=== PATIENT | male | born 1955 | race Caucasian/White ===

== ENCOUNTER 2016-06-24 17:13 | Inpatient (IN) | payer MEDICAID ==
[~2016-06-24 17:13] MED LIST: CALC0.253 PO; FAMO20TA8 PO; FURO40TA5 PO; LABE100T PO; METO5SOL2 PO; NIFE60TA69 PO; PANT40TA2 PO; PRAV40TA PO; SEVE800T8 PO
[2016-06-24] MEDS ORDERED: ACETAMINOPHEN 325 MG TABLET PO PRN (23:30)
[2016-06-24] MEDS ORDERED: ONDANSETRON HCL/PF 4 MG/2 ML VIAL IV PRN (23:30)
[2016-06-25] MEDS ORDERED: DEXTROSE 50%-WATER 50 ML DISP.SYRIN IV PRN (04:00)
[2016-06-25] MEDS: PANTOPRAZOLE 40 MG TABLET.DR PO SCH (07:30)
[2016-06-25] MEDS: BLOOD SUGAR DIAGNOSTIC 1 EACH STRIP IN SCH ×4 (07:30→22:02)
[2016-06-25] MEDS ORDERED: INSU100V7 SQ (08:29)
[2016-06-25] MEDS: NIFEdipine XL 60 MG TAB PO SCH (09:00)
[2016-06-25] MEDS: LABETALOL HCL (100MG) 100 MG TABLET PO SCH ×2 (09:00→17:00)
[2016-06-25] MEDS: FUROSEMIDE 40 MG TABLET PO SCH (09:00)
[2016-06-25] MEDS ORDERED: MORPHINE SULFATE INJ 2 MG/ML DISP.SYRIN IV PRN (10:00)
[2016-06-25] MEDS ORDERED: HYDROCODONE/APAP 5/325MG 1 EACH TABLET PO PRN (10:00)
[2016-06-25] MEDS ORDERED: ONDANSETRON HCL/PF 4 MG/2 ML VIAL IV PRN (10:00)
[2016-06-25] MEDS: SEVELAMER CARBONATE 0.8 GM POWD.PACK PO SCH ×2 (13:00→18:00)
[2016-06-25] MEDS ORDERED: HEPARIN SODIUM, PORCINE 1,000 UNIT/ML VIAL ONE (15:49)
[2016-06-25] MEDS ORDERED: THROMBIN (BOVINE) 5,000 UNITS VIAL TP ONE (15:50)
[2016-06-25] MEDS ORDERED: GELATIN SPONGE,ABSORBABLE 1 SPONGE SPONGE TP ONE (15:50)
[2016-06-25] MEDS ORDERED: LIDOCAINE HCL/PF 1% 30 ML SDV ONE (15:50)
[2016-06-25] MEDS ORDERED: FENTANYL PF 100MCG/2ML AMPUL ONE (15:59)
[2016-06-25] MEDS ORDERED: GELATIN SPONGE,ABSORBABLE 1 EA SPONGE TP ONE (16:34)
[2016-06-25] MEDS: ATORVASTATIN 10 MG TABLET PO SCH (22:02)
[2016-06-25] MEDS ORDERED: INSULIN REGULAR, HUMAN 100 UNIT/ML 10 ML VIAL ONE (22:21)
[2016-06-25] MEDS: INSULIN REGULAR, HUMAN 100 UNIT/ML 3 ML VIAL SQ PRN (22:33)
[2016-06-26] MEDS ORDERED: LOPERAMIDE HCL (2 MG CAP) 2 MG CAPSULE PO PRN
[2016-06-26] MEDS: FUROSEMIDE 40 MG TABLET PO SCH (08:18)
[2016-06-26] MEDS: PANTOPRAZOLE 40 MG TABLET.DR PO SCH (08:18)
[2016-06-26] MEDS: NIFEdipine XL 60 MG TAB PO SCH (08:19)
[2016-06-26] MEDS: BLOOD SUGAR DIAGNOSTIC 1 EACH STRIP IN SCH ×4 (08:19→22:24)
[2016-06-26] MEDS: SEVELAMER CARBONATE 0.8 GM POWD.PACK PO SCH ×3 (08:19→17:15)
[2016-06-26] MEDS: LABETALOL HCL (100MG) 100 MG TABLET PO SCH ×2 (08:19→17:00)
[2016-06-26] MEDS: INSULIN REGULAR, HUMAN 100 UNIT/ML 3 ML VIAL SQ PRN (12:39)
[2016-06-26] MEDS ORDERED: ASPIRIN 81 MG TAB.CHEW PO ONE (22:00)
[2016-06-26] MEDS ORDERED: HEPARIN SODIUM, PORCINE 5000 UNITS/1 ML VIAL SQ SCH (22:00)
[2016-06-26] MEDS: ATORVASTATIN 10 MG TABLET PO SCH (22:16)
[2016-06-27] MEDS: BLOOD SUGAR DIAGNOSTIC 1 EACH STRIP IN SCH ×2 (06:49→11:44)
[2016-06-27] MEDS: PANTOPRAZOLE 40 MG TABLET.DR PO SCH (08:56)
[2016-06-27] MEDS: SEVELAMER CARBONATE 0.8 GM POWD.PACK PO SCH ×2 (08:56→12:52)
[2016-06-27] MEDS: FUROSEMIDE 40 MG TABLET PO SCH (08:56)
[2016-06-27] MEDS: NIFEdipine XL 60 MG TAB PO SCH (08:57)
[2016-06-27] MEDS: LABETALOL HCL (100MG) 100 MG TABLET PO SCH (08:57)
[2016-06-27] MEDS ORDERED: ASPIRIN 81 MG TAB.CHEW PO SCH (09:24)
[2016-06-27] MEDS: INSULIN REGULAR, HUMAN 100 UNIT/ML 3 ML VIAL SQ PRN (11:44)
== END 2016-06-27 15:55 | disposition home or self-care (01) | DRG 444 ==
DX: T82.590A Other mechanical complication of surgically created arteriovenous fistula, initial encounter (principal); I12.0 Hypertensive chronic kidney disease with stage 5 chronic kidney disease or end stage renal disease; E11.22 Type 2 diabetes mellitus with diabetic chronic kidney disease; E83.9 Disorder of mineral metabolism, unspecified; N18.6 End stage renal disease; Z99.2 Dependence on renal dialysis; K21.9 Gastro-esophageal reflux disease without esophagitis; I48.91 Unspecified atrial fibrillation; E78.5 Hyperlipidemia, unspecified; D64.9 Anemia, unspecified; E87.5 Hyperkalemia; N40.0 Benign prostatic hyperplasia without lower urinary tract symptoms; Y84.9 Medical procedure, unspecified as the cause of abnormal reaction of the patient, or of later complication, without mention of misadventure at the time of the procedure; Y92.009 Unspecified place in unspecified non-institutional (private) residence as the place of occurrence of the external cause

== ENCOUNTER → 2016-08-12 | Emergency (ER) | payer MEDICAID ==
[~2016-08-12] VITALS: Ht 160 cm; Wt 54.4 kg
[~2016-08-12] MED LIST changes: +INSU100V7 SQ; -METO5SOL2 PO; -PANT40TA2 PO
[2016-08-12 12:40] VITALS: BP 104/69
--- NOTE | 2016-08-12 12:42 | NUR ---
received a call from naima at 's office [phone] She notified me that patient was sent for a surgery intervention by Dr. Somers however, Dr. Somers will not be able to see patient for surgery today or tomorrow due to an unexpected emergency case. They will reschedule surgery for another time. notified blunger and ER MD
--- NOTE | 2016-08-12 12:46 | NUR ---
Patient eloped from facility. ER MD notified.
== END | disposition left against medical advice (07) ==
LOC: ER 12:32
DX: Z53.21 Procedure and treatment not carried out due to patient leaving prior to being seen by health care provider (principal)
CPT/HCPCS: A4606; Z7610

== ENCOUNTER 2016-08-26 13:04 | Inpatient (IN) | payer MEDICAID ==
[~2016-08-26] VITALS: Ht 170.2 cm; Wt 61.2 kg
--- NOTE | 2016-08-26 13:04 | NUR ---
SENT BY DR LEBLANC FOR THOM CATH CHANGE FOR DR PARMAR. DR PARMAR IS AWARE. NAD NOTED. PT AAO X4, AMB WITH STEADY GAIT. HEBREW SPEAKER, VSS. PENDING MD FOR MATT.
[2016-08-26 13:34] LABS: BASOPHILS # (AUTO) 0.1 /CMM (0.0-0.2); BASOPHILS % (AUTO) 1.2 % (0.0-2.0); EOSINOPHILS # (AUTO) 0.3 /CMM (0.0-0.7); EOSINOPHILS % (AUTO) 6.2 % (0.0-6.0); HEMATOCRIT 42 % (39-51); HEMOGLOBIN 13.3 g/dL (13.5-17.5); LYMPHOCYTES # (AUTO) 1.5 /CMM (0.8-4.8); LYMPHOCYTES % (AUTO) 29.5 % (20.0-44.0); MEAN CORPUSCULAR HEMOGLOBIN 30 PG (26.0-33.0); MEAN CORPUSCULAR HGB CONC 32 g/dl (31.0-36.0); MEAN CORPUSCULAR VOLUME 95 fL (80-96); MONOCYTES # (AUTO) 0.6 /CMM (0.1-1.30); MONOCYTES % (AUTO) 12.1 % (2.0-12.0); NEUTROPHILS # (AUTO) 2.5 /CMM (1.8-8.9); PLATELET COUNT (AUTO) 153 /CMM (150-450); RED BLOOD CELL COUNT(AUTO) 4.39 MIL/uL (4.5-6.0)
[2016-08-26 13:44] LABS: CALCIUM, SERUM 8.8 mg/dL (8.5-10.1); CREATININE 5.7 mg/dL (0.6-1.3); POTASSIUM 4.2 mmol/L (3.5-5.1)
[2016-08-26 13:50] LABS: ALBUMIN 3.6 g/dL (3.4-5.0); BILIRUBIN,DIRECT 0.1 mg/dL (0.0-0.2); BILIRUBIN,TOTAL 0.4 mg/dL (0.2-1.0); TOTAL PROTEIN, SERUM 8.5 g/dL (6.4-8.2)
--- NOTE | 2016-08-26 13:55 | NUR ---
URINE OBTAINED SENT TO LAB
[2016-08-26] MEDS ORDERED: INSULIN REGULAR, HUMAN 100 UNIT/ML 10 ML VIAL SQ ONE (14:30)
[2016-08-26] MEDS ORDERED: INSULIN REGULAR, HUMAN 100 UNIT/ML 10 ML VIAL ONE (14:50)
--- NOTE | 2016-08-26 15:04 | NUR ---
REPORT GIVEN TO KEENAN RAMOS FOR CONTINUITY OF CARE.
--- NOTE | 2016-08-26 15:43 | NUR ---
RN Notes Received per hospital bed a 61 year old male under the service of Dr Anthony with Dx of Malfunction dialysis Catheter. Placed comfortably on bed. Patient is awake, alert and oriented. Not in any form of distress. Denies headache and dizziness. On RA saturating at 97% with no SOB. With IV access on left forearm gg 20 patent and intact. Noted to have Reece cath on left upper chest wall with dressing dry and intact. Routine admission care done. Oriented to the room and use of call light. VSS. Call light placed within reach. Dr anthony aware with admitting orders carried out. Kept comfortable.
[2016-08-26 16:00] VITALS: BP 103/60
[2016-08-26] MEDS ORDERED: DEXTROSE 50%-WATER 50 ML DISP.SYRIN IV PRN (16:00)
[2016-08-26] MEDS: BLOOD SUGAR DIAGNOSTIC 1 EACH STRIP IN SCH ×2 (17:58→21:28)
--- NOTE | 2016-08-26 18:02 | NUR ---
RN Notes BS 56 mg/dl. Patient is awake,alert and oriented,. Not in any form of distress. No changes in mentation noted. No clammy skin. Meal tray at the bedside. Apple juice with sweet concentrate given to patient. Encourage to eat dinner well. will cont to monitor. Will notify
--- NOTE | 2016-08-26 18:03 | NUR ---
RN Notes Spoke with Dr Somers with order to do CBC, BMP, PT/PTT in am, secure consent for right arm AV access and place on NPO post midnight tonight noted and carried out.
--- NOTE | 2016-08-26 18:09 | NUR ---
RN Notes Verified patient's understanding on the risk and benefit of right arm arteriovenous access placement as explained by Dr Somers, as interpreted by computer tape librarian verbalized understanding. Consent for the procedure done.
--- NOTE | 2016-08-26 18:42 | NUR ---
RN Notes Blood sugar rechecked: 189 mg/dl
--- NOTE | 2016-08-26 19:30 | NUR ---
RN NOTE; RECEIVED PT SITING IN BED AWAKE AND ALERT. BREATHING EVENLY. NO SOB. NO DISTRESS. NO C/O PAIN OR DISCOMFORT. SKIN WARM AND DRY. RICHARD CATH ON L CHEST INTACT. NO BLEEDING. PT MADE AWARE OF PROCEDURE IN AM AND NPO STATUS POST MIDNIGHT. NEEDS ATTENDED. CALL LIGHT WITHIN REACH. WILL CONT TO MONITOR .
[2016-08-26 20:00] VITALS: BP_SYST 103; BP_DIAS 62; BP_DIAS 67
--- NOTE | 2016-08-27 06:11 | NUR ---
RN NOTE; PT IN BED SLEEPING, AROUSES EASILY. BREATHING EVENLY. NO SOB. NO DISTRESS. SKIN WARM AND DRY. IV SITE AND RICHARD CATH INTACT. NO ACUTE CHANGES DURING THE NIGHT. REMAINED NPO FOR PROCEDURE TODAY. NO S/S OD HYPO OR HYPERGLYCEMIA. NEEDS ATTENDED. CALL LIGHT WITHIN REACH. WILL CONT TO MONITOR AND WILL ENDORSE TO AM SHIFT FOR KEVIN.
[2016-08-27 06:45] LABS: BASOPHILS # (AUTO) 0.1 /CMM (0.0-0.2); BASOPHILS % (AUTO) 1.6 % (0.0-2.0); EOSINOPHILS # (AUTO) 0.4 /CMM (0.0-0.7); EOSINOPHILS % (AUTO) 6.2 % (0.0-6.0); HEMATOCRIT 36 % (39-51); HEMOGLOBIN 11.7 g/dL (13.5-17.5); LYMPHOCYTES # (AUTO) 2.7 /CMM (0.8-4.8); LYMPHOCYTES % (AUTO) 44.6 % (20.0-44.0); MEAN CORPUSCULAR HEMOGLOBIN 31 PG (26.0-33.0); MEAN CORPUSCULAR HGB CONC 33 g/dl (31.0-36.0); MEAN CORPUSCULAR VOLUME 94 fL (80-96); MONOCYTES # (AUTO) 0.8 /CMM (0.1-1.30); MONOCYTES % (AUTO) 12.7 % (2.0-12.0); NEUTROPHILS # (AUTO) 2.1 /CMM (1.8-8.9); NEUTROPHILS % (AUTO) 34.9 % (43.0-81.0); PLATELET COUNT (AUTO) 166 /CMM (150-450); RDW COEFFICIENT OF VARIATION 15.1 (11.5-15.0); RED BLOOD CELL COUNT(AUTO) 3.83 MIL/uL (4.5-6.0); WHITE BLOOD COUNT (AUTO) 6.1 K/uL (4.3-11.0)
[2016-08-27 06:46] LABS: INR 0.97 (0.87-1.13); PROTHROMBIN TIME 10.4 SECS (9.5-12.7)
[2016-08-27 07:05] LABS: CALCIUM, SERUM 8.3 mg/dL (8.5-10.1); POTASSIUM 5.3 mmol/L (3.5-5.1)
[2016-08-27 07:12] LABS: CREATININE 7.5 mg/dL (0.6-1.3)
[2016-08-27] MEDS: BLOOD SUGAR DIAGNOSTIC 1 EACH STRIP IN SCH ×4 (07:18→21:08)
--- NOTE | 2016-08-27 07:23 | NUR ---
PAGED DR. MCGEE FOR POSSIBLE ORDER FOR IVF HYDRATION OF DEXTROSE. PT W/ BS:89 AND NPO. SCHEDULED FOR SX FOR 1500 TODAY. ENDORSED TO DAY SHIFT RN FOR F/U.
[2016-08-27] MEDS ORDERED: IV D5/ 0.9% NACL 1,000 ML IV PRN (07:30)
--- NOTE | 2016-08-27 07:30 | NUR ---
MS/RN OPENING NOTE PT. IS SLEEPING IN BED, NO S/S OF DISTRESS. NO SOB, UNLABORED BREATHING ON RA. PT. IS ON NPO BEFORE SURGERY. BED IS IN LOW POSITION, 2 SIDE RAILS UP, ALL NEEDS ATTENDED TO. PT. HAS A LEFT CHEST RICHARD CATHETER. IV FLUIDS D5NS ORDERED TO MANAGE BLOOD SUGAR LEVELS.
[2016-08-27] MEDS ORDERED: IV SET PRIMARY PUMP SET 1 EA INFUS.SET MC ONE (07:53)
[2016-08-27 08:00] VITALS: BP 108/63
[2016-08-27] MEDS ORDERED: ONDANSETRON HCL/PF 4 MG/2 ML VIAL IV PRN (09:30)
[2016-08-27] MEDS ORDERED: HYDROCODONE/APAP 5/325MG 1 EACH TABLET PO PRN (09:30)
[2016-08-27] MEDS ORDERED: FENTANYL PF 100MCG/2ML AMPUL ONE (13:29)
[2016-08-27] MEDS ORDERED: METOCLOPRAMIDE HCL 10 MG/2 ML VIAL ONE (13:29)
[2016-08-27] MEDS ORDERED: MIDAZOLAM HCL 2 MG/2ML VIAL ONE (13:29)
[2016-08-27] MEDS ORDERED: ATRACURIUM 100MG/10 ML MDV IV ONE (13:30)
[2016-08-27] MEDS ORDERED: GELATIN SPONGE,ABSORBABLE 1 EA SPONGE TP ONE (13:40)
[2016-08-27] MEDS ORDERED: IOHEXOL 0 ML IV ONE (13:40)
[2016-08-27] MEDS ORDERED: THROMBIN (BOVINE) 5,000 UNITS VIAL TP ONE ×2 (13:40→13:41)
[2016-08-27] MEDS ORDERED: HEPARIN SODIUM, PORCINE 1,000 UNIT/ML VIAL ONE (13:40)
[2016-08-27 16:00] VITALS: BP 100/60
[2016-08-27] MEDS: FUROSEMIDE 40 MG TABLET PO SCH (17:00)
[2016-08-27] MEDS ORDERED: ALTEPLASE CATHFLO 2 MG/VIAL IV ONE (17:30)
--- NOTE | 2016-08-27 17:47 | NUR ---
MS/RN HELD LASIX HELD LASIX MEDICATION DUE TO LOW BP 100/60 PER MD ORDER
[2016-08-27] MEDS: SEVELAMER CARBONATE 0.8 GM POWD.PACK PO SCH (17:52)
--- NOTE | 2016-08-27 19:34 | NUR ---
MS/RN CLOSING NOTE PT. IS IN BED A&OX4, NOT IN DISTRESS. NO SOB, BREATHING IS UNLABORED ON ROOM AIR, AND IN STABLE CONDITION. COMPLETED HEMODIALYSIS. BED IN LOW POSITION, 2 SIDE RAILS UP, AND CALL LIGHT WITHIN REACH. PT. IS ON A RENAL, AND DIABETIC DIET.
--- NOTE | 2016-08-27 19:47 | NUR ---
RECEIVED NEW ORDER FROM DR. PARMAR TO PLACE PT ON NPO EXCEPT MEDS TILL HD, FOR CATHETER PLACEMENT ON 08/28/16, PATIENT MADE AWARE AND VERBALIZED UNDERSTANDING
[2016-08-27 20:00] VITALS: BP 96/62
--- NOTE | 2016-08-27 20:07 | NUR ---
PATIENT IN BED, ALERT AND ORIENTED X4, SW[place] SPEAKING, CALM, NO SOB, NO RESPIRATORY DISTRESS, S/P HD AT 1900. NO COMPLAIN OF PAIN AT THIS TIME, EATING DINNER, NO DIFFICULTY SWALLOWING. NOTIFIED PATIENT OF PROCEDURE IN AM TO REPLACE HD CATHETER. NEEDS ATTENDED, KEPT SAFE AND COMFORTABLE, CALL LIGHT WITHIN REACH
[2016-08-27] MEDS ORDERED: IV D5/ 0.9% NACL 1,000 ML IV ONE (20:30)
[2016-08-27 21:08] VITALS: BP 89/61
[2016-08-27] MEDS: ATORVASTATIN 10 MG TABLET PO SCH (21:08)
--- NOTE | 2016-08-27 21:18 | NUR ---
BP LOW 89/61 HR 94, PUT PATIENT ON [place] POSITION, BP TAKEN AFTER 30 MINUTES, NEW BP 96/62 HR 80
[2016-08-27] MEDS: INSULIN REGULAR, HUMAN 100 UNIT/ML 3 ML VIAL SQ PRN (21:32)
--- NOTE | 2016-08-27 21:32 | NUR ---
INSULIN HELD, BG 157 MG/DL, PATIENT WILL BE NPO AFTER MIDNIGHT FOR HD PLACEMENT IN AM
--- NOTE | 2016-08-27 21:37 | NUR ---
NPO EXCEPT MEDS IS CHANGED TO NPO ONLY
[2016-08-28] MEDS: BLOOD SUGAR DIAGNOSTIC 1 EACH STRIP IN SCH ×4 (06:18→21:19)
[2016-08-28] MEDS: INSULIN REGULAR, HUMAN 100 UNIT/ML 3 ML VIAL SQ PRN ×3 (06:26→21:20)
--- NOTE | 2016-08-28 06:27 | NUR ---
BG 107, INSULIN HELD, PATIENT IS NPO
[2016-08-28 06:31] LABS: BASOPHILS # (AUTO) 0.1 /CMM (0.0-0.2); BASOPHILS % (AUTO) 1.6 % (0.0-2.0); EOSINOPHILS # (AUTO) 0.4 /CMM (0.0-0.7); EOSINOPHILS % (AUTO) 6.1 % (0.0-6.0); HEMATOCRIT 38 % (39-51); HEMOGLOBIN 12.3 g/dL (13.5-17.5); LYMPHOCYTES # (AUTO) 2.3 /CMM (0.8-4.8); LYMPHOCYTES % (AUTO) 37.8 % (20.0-44.0); MEAN CORPUSCULAR HEMOGLOBIN 31 PG (26.0-33.0); MEAN CORPUSCULAR HGB CONC 33 g/dl (31.0-36.0); MEAN CORPUSCULAR VOLUME 94 fL (80-96); MONOCYTES # (AUTO) 0.9 /CMM (0.1-1.30); MONOCYTES % (AUTO) 14.6 % (2.0-12.0); NEUTROPHILS # (AUTO) 2.4 /CMM (1.8-8.9); NEUTROPHILS % (AUTO) 39.9 % (43.0-81.0); PLATELET COUNT (AUTO) 146 /CMM (150-450); RDW COEFFICIENT OF VARIATION 14.8 (11.5-15.0); RED BLOOD CELL COUNT(AUTO) 3.97 MIL/uL (4.5-6.0)
--- NOTE | 2016-08-28 06:39 | NUR ---
PATIENT IN BED, ALERT AND AWAKE, NO SOB, NO DISTRESS, NO PAIN AT THIS TIME. NPO SINCE MIDNIGHT, SLEPT FOR 9 HOURS, FOR HD CATHETER PLACEMENT TODAY, ALL DUE MEDICATIONS GIVEN, CALL LIGHT WITHIN REACH.
[2016-08-28 06:50] LABS: CALCIUM, SERUM 8.2 mg/dL (8.5-10.1); CREATININE 6.9 mg/dL (0.6-1.3); MAGNESIUM 2.6 mg/dL (1.8-2.4); PHOSPHORUS 5.4 mg/dL (2.5-4.9); POTASSIUM 4.7 mmol/L (3.5-5.1)
--- NOTE | 2016-08-28 06:53 | NUR ---
PATIENT STARTED ON HD AT THIS TIME
--- NOTE | 2016-08-28 07:30 | NUR ---
MS/RN Patient received Patient received from night court magistrate. NPO at this time for surgery later today by Dr Somers. Blank consent forms placed in front of chart, unable to complete as no order given for exact surgery as of yet. All needs attended, call light within reach, will continue to monitor.
[2016-08-28 08:00] VITALS: BP 116/71
--- NOTE | 2016-08-28 08:27 | NUR ---
MS/RN Dr Somers Call received from Dr Somers - as quinnntin catheter has been working for two HDX sessions, new line insertion to be cancelled. Patient can resume all previous orders including diet. Order entered into computer, kitchen called for tray.
[2016-08-28] MEDS: SEVELAMER CARBONATE 0.8 GM POWD.PACK PO SCH ×3 (09:39→17:12)
[2016-08-28] MEDS: FAMOTIDINE (20 MG) 20 MG TABLET PO SCH (09:40)
[2016-08-28] MEDS: FUROSEMIDE 40 MG TABLET PO SCH ×2 (09:40→16:12)
[2016-08-28] MEDS: CALCITRIOL 0.25 MCG CAPSULE PO SCH (09:40)
--- NOTE | 2016-08-28 09:43 | NUR ---
RN notes patient ambulated to restroom with steady gait; dangling at bedside at the moment; no acute distress; will continue to monitor.
--- NOTE | 2016-08-28 13:56 | NUR ---
RN NOTES LFA IV infiltrated; IV discontinued, cannula intact, pressure drsg applied; 20g IV inserted in R wrist; patient tolerated procedure; patient able to produce soft brown stool; specimen collected & sent to lab.
[2016-08-28 16:00] VITALS: BP 126/67
--- NOTE | 2016-08-28 16:17 | NUR ---
RN NOTES patient laying in bed watching tv; denies any distress or discomfort at this time; will continue to monitor.
--- NOTE | 2016-08-28 18:00 | NUR ---
RN NOTES R wrist HL patent; no signs of infiltration or swelling; patient denies any pain at this time; will inform PM nurse.
[2016-08-28 20:00] VITALS: BP 108/68
--- NOTE | 2016-08-28 20:00 | NUR ---
RN NOTES RECEIVED PX AWAKE, ALERT, ORIENTED, [place] SPEAKING BUT IS ABLE TO COMMUNICATE ALSO IN [place]IZ[place]; ON ROOM AIR, PIV FLUSHED, PATENT AND INTACT; LEFT CW HD ACCESS, WITH DRESSING CLEAN,DRY,INTACT; PX ABLE TO MOVE BY SELF IN BED; DVT PUMPS ON; PX DENIED PAIN, SOB, N/V.
[2016-08-28 20:03] VITALS: BP 108/68
[2016-08-28] MEDS: ATORVASTATIN 10 MG TABLET PO SCH (21:19)
--- NOTE | 2016-08-29 06:35 | NUR ---
RN NOTES EARLY AM CARE RENDERED; PROCEDURE TOLERATED; PX DENIED PAIN, SOB, N/V, NOT IN DISTRESS; BLOOD SUGAR 82, GAVE A CRANBERRY JUICE; NEEDS ATTENDED; CALL LIGHT WITHIN REACH; WILL ENDORSE TO NEXT RN.
[2016-08-29] MEDS: BLOOD SUGAR DIAGNOSTIC 1 EACH STRIP IN SCH ×4 (06:39→21:21)
[2016-08-29 08:00] VITALS: BP 119/74
--- NOTE | 2016-08-29 08:00 | NUR ---
AM RN NOTES RECEIVED PT IN STABLE CONDITION, NOTED WITH DIARRHEA AND MULTIPLE LOOSE BM'S, NO SOB OR DISTRESS NOTED, NO N/V, WILL MONITOR.
[2016-08-29] MEDS: CALCITRIOL 0.25 MCG CAPSULE PO SCH (08:05)
[2016-08-29] MEDS: SEVELAMER CARBONATE 0.8 GM POWD.PACK PO SCH ×3 (08:05→17:52)
[2016-08-29] MEDS: FUROSEMIDE 40 MG TABLET PO SCH ×2 (08:06→16:16)
[2016-08-29] MEDS: FAMOTIDINE (20 MG) 20 MG TABLET PO SCH (08:06)
--- NOTE | 2016-08-29 09:30 | NUR ---
PT STARTED ON CONTACT ISOLATION DUE TO C DIFF
[2016-08-29] MEDS ORDERED: METRONIDAZOLE 500MG/ NS 100ML 500 MG in PREMIX 1 EA IV SCH (10:30)
[2016-08-29] MEDS ORDERED: SECONDARY IV SET 1 EA INFUS.SET MC ONE (11:01)
[2016-08-29] MEDS ORDERED: IV NS 0.9% 250 ML IV ONE (11:01)
[2016-08-29] MEDS ORDERED: IV SET PRIMARY PUMP SET 1 EA INFUS.SET MC ONE (11:01)
[2016-08-29] MEDS: METRONIDAZOLE 500MG/ NS 100ML 500 MG in PREMIX 1 EA IV SCH ×2 (11:43→19:49)
[2016-08-29] MEDS: VANCOMYCIN HCL 125 MG/2.5 ML ORAL.SUSP PO SCH ×3 (12:53→21:21)
[2016-08-29 16:00] VITALS: BP 123/74
--- NOTE | 2016-08-29 19:27 | NUR ---
PT IN STABLE CONDITION,TOLERATED WELL TO ANTIBIOTICS, NO A/R NOTED, INDORSED TO NEXT SHIFT
[2016-08-29 20:00] VITALS: BP 118/70
--- NOTE | 2016-08-29 20:00 | NUR ---
RECEIVED PATIENT IN BED, WATCHING TV, NO SOB, NO DISTRESS, DENIES ANY PAIN AT THIS TIME, [place] SPEAKING, ABLE TO UNDERSTAND SIMPLE MALTESE, RIGHT WRIST PERIPHERAL IV IS PATENT, FLUSHED. ON ISOLATION FOR C-DIFF. KEPT SAFE AND COMFORTABLE, CALL LIGHT WITHIN REACH.
[2016-08-29] MEDS: ATORVASTATIN 10 MG TABLET PO SCH (21:21)
[2016-08-29] MEDS: INSULIN REGULAR, HUMAN 100 UNIT/ML 3 ML VIAL SQ PRN (21:28)
[2016-08-29] MEDS: LOPERAMIDE HCL (2 MG CAP) 2 MG CAPSULE PO PRN (21:42)
--- NOTE | 2016-08-29 21:43 | NUR ---
GIVEN IMODIUM I CAP FOR DIARRHEA, WILL CONTINUE TO MONITOR.
[2016-08-30] MEDS: METRONIDAZOLE 500MG/ NS 100ML 500 MG in PREMIX 1 EA IV SCH ×3 (03:16→20:53)
[2016-08-30] MEDS: BLOOD SUGAR DIAGNOSTIC 1 EACH STRIP IN SCH ×4 (06:32→20:54)
[2016-08-30] MEDS: INSULIN REGULAR, HUMAN 100 UNIT/ML 3 ML VIAL SQ PRN (06:34)
--- NOTE | 2016-08-30 06:34 | NUR ---
BG 82 MG/DL, NO INSULIN GIVEN. PROVIDED ORANGE JUICE
[2016-08-30 06:36] LABS: BASOPHILS # (AUTO) 0.1 /CMM (0.0-0.2); BASOPHILS % (AUTO) 1.8 % (0.0-2.0); EOSINOPHILS # (AUTO) 0.4 /CMM (0.0-0.7); HEMATOCRIT 36 % (39-51); HEMOGLOBIN 11.7 g/dL (13.5-17.5); LYMPHOCYTES # (AUTO) 2.8 /CMM (0.8-4.8); LYMPHOCYTES % (AUTO) 44.8 % (20.0-44.0); MEAN CORPUSCULAR HEMOGLOBIN 30 PG (26.0-33.0); MEAN CORPUSCULAR HGB CONC 32 g/dl (31.0-36.0); MEAN CORPUSCULAR VOLUME 93 fL (80-96); MONOCYTES # (AUTO) 0.7 /CMM (0.1-1.30); MONOCYTES % (AUTO) 10.7 % (2.0-12.0); NEUTROPHILS # (AUTO) 2.2 /CMM (1.8-8.9); NEUTROPHILS % (AUTO) 35.7 % (43.0-81.0); PLATELET COUNT (AUTO) 153 /CMM (150-450); RDW COEFFICIENT OF VARIATION 14.3 (11.5-15.0); RED BLOOD CELL COUNT(AUTO) 3.87 MIL/uL (4.5-6.0); WHITE BLOOD COUNT (AUTO) 6.2 K/uL (4.3-11.0)
[2016-08-30 06:38] LABS: CALCIUM, SERUM 8.3 mg/dL (8.5-10.1); MAGNESIUM 2.8 mg/dL (1.8-2.4); PHOSPHORUS 7.4 mg/dL (2.5-4.9); POTASSIUM 5.9 mmol/L (3.5-5.1)
--- NOTE | 2016-08-30 06:41 | NUR ---
PATIENT IS AWAKE AND ALERT, GOOD AND STABLE CONDITION, NO SOB, NO COMPLAIN OF PAIN, HAS LEFT CW HD CATHETER, DRESSING IS CLEAN, RIGHT WRIST PERIPHERAL LINE IS PATENT, NO ASE ON IV ABX, NEEDS ATTENDED, CALL LIGHT WITHIN REACH.
[2016-08-30 07:15] LABS: CREATININE 9.9 mg/dL (0.6-1.3)
[2016-08-30 08:00] VITALS: BP 132/74
--- NOTE | 2016-08-30 08:00 | NUR ---
MS RICHARD AM NOTES PT WAS RESTING IN BED AND WATCHING TV. PT WAS A/OX4, STABLE, WILL CONTINUE TO MONITOR THROUGHOUT SHIFT.
[2016-08-30] MEDS: CALCITRIOL 0.25 MCG CAPSULE PO SCH (08:07)
[2016-08-30] MEDS: FUROSEMIDE 40 MG TABLET PO SCH ×2 (08:07→17:38)
[2016-08-30] MEDS: SEVELAMER CARBONATE 0.8 GM POWD.PACK PO SCH ×3 (08:07→17:37)
[2016-08-30] MEDS: FAMOTIDINE (20 MG) 20 MG TABLET PO SCH (08:07)
[2016-08-30] MEDS: VANCOMYCIN HCL 125 MG/2.5 ML ORAL.SUSP PO SCH ×4 (08:15→20:53)
--- NOTE | 2016-08-30 12:42 | NUR ---
PATIENT'S BLOOD SUGAR CHECKED AT 1213 AND WAS AT 53. INTERVENTIONS WERE APPLIED. PATIENT WAS GIVEN 1 BOX OF APPLE JUICE, CRACKERS, AND CRANBERRY JUICE. RECHECKED BLOOD SUGAR AFTER AT EXACTLY 1225 AND BLOOD GLUCOSE IS NOW 63. PATIENT IS CURRENTLY EATING LUNCH AND IS NOT EXHIBITING ANY S/S OF DISTRESS.
--- NOTE | 2016-08-30 12:45 | NUR ---
noted with low blood sugar, pt refused D50w, stated that he will eat and blood sugar will go up, refused to take any medications at this time, will monitor.
[2016-08-30 16:48] VITALS: BP 121/72
--- NOTE | 2016-08-30 17:08 | NUR ---
MS RICHARD NOTES CALLED AVANI, VEHICLE SERVICE AGENT, TO ASK WHEN THE PATIENT WILL BE DIALYZED TODAY. AVANI STATED THAT HE DID NOT HAVE THE PT SCHEDULED FOR DIALYSIS TODAY. I INFORMED AVANI OF THE PATIENT'S ELECTROLYTE VALUES AND LABS AND AVANI STATED THAT THIS IS NOT AN EMERGENCY SITUATION. HE STATED THAT THE BEST HE CAN DO IS SCHEDULE THE PATIENT FOR DIALYSIS TOMORROW MORNING, 08/31/16, AROUND 6 OR 7 AM.
--- NOTE | 2016-08-30 18:41 | NUR ---
MS RN CLOSING NOTES PT IN STABLE CONDITION. A/OX4. WATCHING TV. PATIENT FINISHED HIS DINNER. NO SOB OR S/S OF DISTRESS NOTES. IV ON L HAND 22 G. IV IS PATENT AND INTACT. WILL ENDORSE CARE TO PM SHIFT.
--- NOTE | 2016-08-30 19:30 | NUR ---
MS RN NOTES PT IN STABLE CONDITION. A/OX4. WATCHING TV. NO SOB OR S/S OF DISTRESS NOTED. IV ON L HAND 22 G. IV IS PATENT AND INTACT. WILL ENDORSE CARE TO PM SHIFT.
[2016-08-30 20:00] VITALS: BP 149/43
[2016-08-30] MEDS: ACETAMINOPHEN 650 MG/20.3 ML UDC NG PRN (20:53)
[2016-08-30] MEDS: ATORVASTATIN 10 MG TABLET PO SCH (20:55)
--- NOTE | 2016-08-30 22:00 | NUR ---
MS RN NOTE PATIENT STABLE. NO RESPIRATORY DISTRESS OR SOB NOTED. BLOOD SUGAR 100. NO COVERAGE NEEDED. WILL CONTINUE TO MONITOR.
[2016-08-31] MEDS: METRONIDAZOLE 500MG/ NS 100ML 500 MG in PREMIX 1 EA IV SCH ×3 (04:52→21:08)
--- NOTE | 2016-08-31 06:06 | NUR ---
MS RN NOTE PATIENT STABLE. SLEPT WELL THROUGH THE NIGHT. BLOOD SUGAR 100. CONTACT ISOLATION PRECAUTIONS IN PLACE. PICTURES TAKEN OF WOUNDS AND PLACED IN CHART.WILL ENDORSE TO DAY SHIFT FOR KEVIN.
[2016-08-31] MEDS: BLOOD SUGAR DIAGNOSTIC 1 EACH STRIP IN SCH ×4 (06:31→21:09)
[2016-08-31 06:32] LABS: BASOPHILS # (AUTO) 0.1 /CMM (0.0-0.2); BASOPHILS % (AUTO) 1.7 % (0.0-2.0); EOSINOPHILS # (AUTO) 0.3 /CMM (0.0-0.7); EOSINOPHILS % (AUTO) 6.4 % (0.0-6.0); HEMATOCRIT 34 % (39-51); HEMOGLOBIN 11.4 g/dL (13.5-17.5); LYMPHOCYTES # (AUTO) 2.5 /CMM (0.8-4.8); LYMPHOCYTES % (AUTO) 45.5 % (20.0-44.0); MEAN CORPUSCULAR HEMOGLOBIN 31 PG (26.0-33.0); MEAN CORPUSCULAR HGB CONC 33 g/dl (31.0-36.0); MEAN CORPUSCULAR VOLUME 93 fL (80-96); MONOCYTES # (AUTO) 0.7 /CMM (0.1-1.30); MONOCYTES % (AUTO) 12.1 % (2.0-12.0); NEUTROPHILS # (AUTO) 1.9 /CMM (1.8-8.9); NEUTROPHILS % (AUTO) 34.3 % (43.0-81.0); PLATELET COUNT (AUTO) 142 /CMM (150-450); RDW COEFFICIENT OF VARIATION 14.1 (11.5-15.0); RED BLOOD CELL COUNT(AUTO) 3.69 MIL/uL (4.5-6.0); WHITE BLOOD COUNT (AUTO) 5.4 K/uL (4.3-11.0)
[2016-08-31 06:50] LABS: CALCIUM, SERUM 7.9 mg/dL (8.5-10.1); MAGNESIUM 2.8 mg/dL (1.8-2.4); POTASSIUM 5.9 mmol/L (3.5-5.1)
[2016-08-31 06:51] LABS: CREATININE 11.5 mg/dL (0.6-1.3); PHOSPHORUS 8.1 mg/dL (2.5-4.9)
[2016-08-31 08:00] VITALS: BP 131/77
[2016-08-31] MEDS: CALCITRIOL 0.25 MCG CAPSULE PO SCH (08:26)
[2016-08-31] MEDS: SEVELAMER CARBONATE 0.8 GM POWD.PACK PO SCH (08:26)
[2016-08-31] MEDS: FAMOTIDINE (20 MG) 20 MG TABLET PO SCH (08:27)
[2016-08-31] MEDS: FUROSEMIDE 40 MG TABLET PO SCH ×2 (08:27→17:00)
[2016-08-31] MEDS: VANCOMYCIN HCL 125 MG/2.5 ML ORAL.SUSP PO SCH ×4 (08:30→21:09)
--- NOTE | 2016-08-31 09:00 | NUR ---
MS RN NOTES PATIENT IN BED RESTING NO SOB OR ACUTE DISTRESS NOTED. PATIENT STARTED WITH DIALYSIS TOLERATING WELL. WILL CONTINUE TO MONITOR.
--- NOTE | 2016-08-31 12:00 | NUR ---
MS RN NOTES PATIENT SEEN AND EVALUATED BY DR. LOWRY ORDERS NOTED AND CARRIED OUT.
[2016-08-31] MEDS: SEVELAMER CARBONATE 800 MG TABLET PO SCH ×2 (12:03→17:00)
[2016-08-31 16:00] VITALS: BP 113/70
[2016-08-31] MEDS: INSULIN REGULAR, HUMAN 100 UNIT/ML 3 ML VIAL SQ PRN (17:12)
--- NOTE | 2016-08-31 18:45 | NUR ---
MS RN NOTES PATIENT IN BED RESTING NO SOB OR ACUTE DISTRESS NOTED. ALL DUE MEDICATIONS GIVEN. ALL NEEDS MET. WILL ENDORSE TO PM SHIFT KEVIN.
--- NOTE | 2016-08-31 19:30 | NUR ---
MS RN NOTES PT IN STABLE CONDITION. A/OX4. NO SOB OR S/S OF DISTRESS NOTED. IV ON L HAND 22 G. IV IS PATENT AND INTACT. WILL ENDORSE CARE TO PM SHIFT.
[2016-08-31 20:52] VITALS: BP 128/73
[2016-08-31] MEDS: ACETAMINOPHEN 650 MG/20.3 ML UDC NG PRN (21:08)
[2016-08-31] MEDS: ATORVASTATIN 10 MG TABLET PO SCH (21:08)
[2016-08-31 21:55] VITALS: BP 128/73
--- NOTE | 2016-08-31 22:00 | NUR ---
MS RN NOTE BLOOD SUGAR 104. NO COVERAGE NEEDED. WILL CONTINUE TO MONITOR.
[2016-09-01] MEDS: METRONIDAZOLE 500MG/ NS 100ML 500 MG in PREMIX 1 EA IV SCH ×3 (04:51→20:51)
--- NOTE | 2016-09-01 06:22 | NUR ---
MS RN NOTE PATIENT STABLE. NO S/S OF DISCOMFORT AT THIS TIME. IV SITE INTACT, WITH NO INFILTRATION NOTED. BLOOD SUGAR 73. NO COVERAGE NEEDED. ALL NEEDS MET AND ATTENDED TO. WILL ENDORSE TO DAY SHIFT FOR KEVIN.
[2016-09-01] MEDS: BLOOD SUGAR DIAGNOSTIC 1 EACH STRIP IN SCH ×4 (06:34→20:51)
[2016-09-01 06:44] LABS: BASOPHILS # (AUTO) 0.1 /CMM (0.0-0.2); BASOPHILS % (AUTO) 2.1 % (0.0-2.0); EOSINOPHILS # (AUTO) 0.2 /CMM (0.0-0.7); HEMATOCRIT 34 % (39-51); HEMOGLOBIN 11.1 g/dL (13.5-17.5); LYMPHOCYTES # (AUTO) 2.3 /CMM (0.8-4.8); LYMPHOCYTES % (AUTO) 47.8 % (20.0-44.0); MEAN CORPUSCULAR HEMOGLOBIN 31 PG (26.0-33.0); MEAN CORPUSCULAR HGB CONC 33 g/dl (31.0-36.0); MEAN CORPUSCULAR VOLUME 93 fL (80-96); MONOCYTES # (AUTO) 0.7 /CMM (0.1-1.30); MONOCYTES % (AUTO) 14.3 % (2.0-12.0); NEUTROPHILS # (AUTO) 1.5 /CMM (1.8-8.9); NEUTROPHILS % (AUTO) 30.8 % (43.0-81.0); PLATELET COUNT (AUTO) 127 /CMM (150-450); RDW COEFFICIENT OF VARIATION 14.2 (11.5-15.0); WHITE BLOOD COUNT (AUTO) 4.9 K/uL (4.3-11.0)
[2016-09-01 06:51] LABS: CALCIUM, SERUM 7.7 mg/dL (8.5-10.1); MAGNESIUM 2.6 mg/dL (1.8-2.4); POTASSIUM 5.6 mmol/L (3.5-5.1)
[2016-09-01 07:00] LABS: CREATININE 10.3 mg/dL (0.6-1.3); PHOSPHORUS 8.2 mg/dL (2.5-4.9)
--- NOTE | 2016-09-01 07:30 | NUR ---
MS/RN Patient received Patient received from office helper. No needs at this time, call light within reach,aware of how to use and call for help. Will continue to monitor and ensure safety.
[2016-09-01] MEDS: FAMOTIDINE (20 MG) 20 MG TABLET PO SCH (07:48)
[2016-09-01] MEDS: SEVELAMER CARBONATE 800 MG TABLET PO SCH ×3 (07:48→17:54)
[2016-09-01] MEDS: VANCOMYCIN HCL 125 MG/2.5 ML ORAL.SUSP PO SCH ×4 (07:49→20:51)
[2016-09-01] MEDS: FUROSEMIDE 40 MG TABLET PO SCH ×2 (07:49→16:45)
[2016-09-01 08:00] VITALS: BP 126/77
--- NOTE | 2016-09-01 08:44 | NUR ---
MS/return to factory clerk Morning medications administered as ordered.
--- NOTE | 2016-09-01 09:30 | NUR ---
MS/RN Labs Morning labs reviewed: -K+ 5.6 (MD aware) - Creatinine 10.3 -Phos 8.2
--- NOTE | 2016-09-01 12:00 | NUR ---
MS/RN Blood sugar Blood sugar at noon - 103, no coverage needed.
--- NOTE | 2016-09-01 12:30 | NUR ---
MS/RN S/B Dr Strong Seen by Dr Strong - JANENE ordered for tomorrow. Once discharged will need to have fistulogram arrnaged at other hospital.
[2016-09-01 16:00] VITALS: BP 137/87
[2016-09-01 17:57] VITALS: BP 137/87
--- NOTE | 2016-09-01 18:40 | NUR ---
MS/RN End note No changes at this time, per patient has had three episodes of diarrhea. Scheduled for HDX tomorrow, no changes in plan of care, will endorse to evening or night nurse supervisor.
--- NOTE | 2016-09-01 19:30 | NUR ---
MS RN NOTE RECEIVED PATIENT AWAKE IN BED. NO RESPIRATORY DISTRESS OR SOB NOTED. PATIENT DENIES ANY PAIN AT THIS TIME. IV SITE INTACT WITH NO REDNESS OR INFILTRATION NOTED. CONTACT ISOLATION PRECAUTIONS IN PLACE. BED LOCKED AND IN LOWEST POSITION. SIDE RAILS UP, CLL LIGHT WITHIN REACH. WILL CONTINUE TO MONITOR.
[2016-09-01 20:42] VITALS: BP 130/74
[2016-09-01] MEDS: ATORVASTATIN 10 MG TABLET PO SCH (20:51)
[2016-09-01] MEDS: INSULIN REGULAR, HUMAN 100 UNIT/ML 3 ML VIAL SQ PRN (21:11)
[2016-09-01 22:00] VITALS: BP 139/74
--- NOTE | 2016-09-01 22:00 | NUR ---
MS RN NOTE BLOOD SUGAR 163. WILL CONTINUE TO MONITOR.
[2016-09-02] MEDS: METRONIDAZOLE 500MG/ NS 100ML 500 MG in PREMIX 1 EA IV SCH ×3 (04:41→21:33)
[2016-09-02] MEDS: BLOOD SUGAR DIAGNOSTIC 1 EACH STRIP IN SCH ×4 (06:31→21:44)
[2016-09-02 06:47] LABS: BASOPHILS # (AUTO) 0.1 /CMM (0.0-0.2); BASOPHILS % (AUTO) 1.8 % (0.0-2.0); EOSINOPHILS # (AUTO) 0.3 /CMM (0.0-0.7); EOSINOPHILS % (AUTO) 5.1 % (0.0-6.0); HEMATOCRIT 34 % (39-51); HEMOGLOBIN 11.5 g/dL (13.5-17.5); LYMPHOCYTES # (AUTO) 2.5 /CMM (0.8-4.8); LYMPHOCYTES % (AUTO) 44.3 % (20.0-44.0); MEAN CORPUSCULAR HEMOGLOBIN 31 PG (26.0-33.0); MEAN CORPUSCULAR HGB CONC 33 g/dl (31.0-36.0); MEAN CORPUSCULAR VOLUME 92 fL (80-96); MONOCYTES # (AUTO) 0.7 /CMM (0.1-1.30); MONOCYTES % (AUTO) 13.3 % (2.0-12.0); NEUTROPHILS % (AUTO) 35.5 % (43.0-81.0); PLATELET COUNT (AUTO) 133 /CMM (150-450); RDW COEFFICIENT OF VARIATION 14.2 (11.5-15.0); RED BLOOD CELL COUNT(AUTO) 3.72 MIL/uL (4.5-6.0); WHITE BLOOD COUNT (AUTO) 5.6 K/uL (4.3-11.0)
[2016-09-02 07:06] LABS: CALCIUM, SERUM 7.8 mg/dL (8.5-10.1); MAGNESIUM 2.6 mg/dL (1.8-2.4)
[2016-09-02 07:11] LABS: CREATININE 11.5 mg/dL (0.6-1.3)
[2016-09-02 07:14] LABS: PHOSPHORUS 8.9 mg/dL (2.5-4.9)
--- NOTE | 2016-09-02 07:15 | NUR ---
RN NOTES RECEIVED PT IN BED,. SLEEPING, BUT EASY TO AROUSE. IN NO APPARENT DISTRESS AT THIS TIME. RECEIVED CALL FROM PHARMACY FOR PHOSPHORUS RESULT F 8.9. NOTED. WILL REPORT TO MD. WILL CONTINUE TO MONITOR PT;CALL LIGHT WITHIN REACH
[2016-09-02 08:00] VITALS: BP 135/72
[2016-09-02] MEDS: SEVELAMER CARBONATE 800 MG TABLET PO SCH ×3 (08:00→17:32)
--- NOTE | 2016-09-02 08:00 | NUR ---
RN NOTES PT CURRENTLY BEING DIALYZED. WILL CONTINUE TO MONITOR
[2016-09-02] MEDS: VANCOMYCIN HCL 125 MG/2.5 ML ORAL.SUSP PO SCH ×4 (08:56→21:33)
[2016-09-02] MEDS: FAMOTIDINE (20 MG) 20 MG TABLET PO SCH (08:56)
--- NOTE | 2016-09-02 09:00 | NUR ---
RN NOTES PT SEEN AND EXAMINED BY DR LETICIA LOWRY- MADE AWARE OF PT'S ELEVATED POTASSIUM AND PHOSPHORUS. WITH NEW ORDERS NOTED AND CARRIED OUT
[2016-09-02] MEDS: FUROSEMIDE 40 MG TABLET PO SCH ×2 (10:03→17:33)
--- NOTE | 2016-09-02 10:30 | NUR ---
RN NOTES PT SEEN AND BY EXAMINED BY DR ARAMBULA- WITH NO NEW ORDERS AT THIS TIME. UPDATED ABOUT PT CONDITION AND POSSIBLE DISCHARGE TOMORROW ( PER DR LOWRY). SAID TO UPDATE HIS OFFICE IF PT WILL BE DISCHARGED. NOTED. WILL CONTINUE TO MONITOR
[2016-09-02] MEDS: CALCIUM ACETATE 667 MG TABLET PO SCH ×2 (12:25→17:32)
[2016-09-02 16:00] VITALS: BP 130/72
--- NOTE | 2016-09-02 18:00 | NUR ---
RN NOTES PT IN BED. AWAKE,ALERT, ORIENTED X 3. IN NO APPARENT DISTRESS. TOLERATED ALL DUES MEDS AND TREATMENTS. WILL ENDORSE TO ONCOMING SHIFT
--- NOTE | 2016-09-02 19:20 | NUR ---
MS RN NOTES RECEIVED PT IN BED, AWAKE, A/O X 4. VERBALLY RESPONSIVE IN [place]. ABLE TO VERBALIZE NEEDS, FRIEND AT BED SIDE. NO ACUTE DISTRESS, NO SOB NOTED. RESPIRATION IS EVEN AND UNLABORED. LEFT HAND IV SITE INTACT AND PATENT, NO S/S OF INFILTRATION NOTED. LCW PERMA CATH INTACT, NO S/S OF INFECTION NOTED. ALL NEEDS ATTENDED AND MET. KEPT COMFORTABLE. NO S/S OF HYPO/ HYPERGLYCEMIA NOTED. NO C/O PAIN OR DISCOMFORT AT THIS TIME. SAFETY PRECAUTIONS OBSERVED. CALL LIGHT WITHIN REACH. WILL CONT TO MONITOR.
[2016-09-02 20:00] VITALS: BP 123/79
[2016-09-02] MEDS ORDERED: SECONDARY IV SET 1 EA INFUS.SET MC ONE (21:21)
[2016-09-02] MEDS: ATORVASTATIN 10 MG TABLET PO SCH (21:42)
[2016-09-02] MEDS: INSULIN REGULAR, HUMAN 100 UNIT/ML 3 ML VIAL SQ PRN (21:52)
[2016-09-02 22:00] VITALS: BP 123/79
[2016-09-03] MEDS: METRONIDAZOLE 500MG/ NS 100ML 500 MG in PREMIX 1 EA IV SCH ×3 (04:22→21:15)
[2016-09-03] MEDS: BLOOD SUGAR DIAGNOSTIC 1 EACH STRIP IN SCH ×4 (06:48→21:21)
[2016-09-03 07:00] LABS: MAGNESIUM 2.6 mg/dL (1.8-2.4); PHOSPHORUS 7.4 mg/dL (2.5-4.9); POTASSIUM 5.4 mmol/L (3.5-5.1)
--- NOTE | 2016-09-03 07:08 | NUR ---
MS RN NOTES PT IN BED, AWAKE, A/O X 4. WATCHING TV AT THIS TIME. VERBALLY RESPONSIVE IN [place]. ABLE TO VERBALIZE NEEDS. NO ACUTE DISTRESS, NO SOB NOTED. RESPIRATION IS EVEN AND UNLABORED. LEFT HAND IV SITE INTACT AND PATENT, NO S/S OF INFILTRATION NOTED. LCW PERMA CATH INTACT, NO S/S OF INFECTION NOTED. ALL NEEDS ATTENDED AND MET. KEPT COMFORTABLE. NO S/S OF HYPO/ HYPERGLYCEMIA NOTED. NO C/O PAIN OR DISCOMFORT AT THIS TIME. SAFETY PRECAUTIONS OBSERVED. CALL LIGHT WITHIN REACH. WILL ENDORSE TO NEXT SHIFT FOR KEVIN.
[2016-09-03 07:24] LABS: CREATININE 10.6 mg/dL (0.6-1.3)
[2016-09-03 08:00] VITALS: BP 119/69
--- NOTE | 2016-09-03 08:00 | NUR ---
RECEIVED PT A/OX4. PT IN BED RELAXING AND WATCHING TV. NO SOB OR ANY S/S PF DISTRESS NOTED. IV IS INTACT AND PATENT. BED IS IN LOW LOCKED POSITION. WILL CONTINUE TO MONITOR THROUGHOUT SHIFT.
[2016-09-03] MEDS: SEVELAMER CARBONATE 800 MG TABLET PO SCH ×3 (08:31→18:24)
[2016-09-03] MEDS: FUROSEMIDE 40 MG TABLET PO SCH ×2 (08:31→17:55)
[2016-09-03] MEDS: CALCIUM ACETATE 667 MG TABLET PO SCH ×3 (08:32→18:24)
[2016-09-03] MEDS: FAMOTIDINE (20 MG) 20 MG TABLET PO SCH (08:32)
[2016-09-03] MEDS: VANCOMYCIN HCL 125 MG/2.5 ML ORAL.SUSP PO SCH ×4 (08:33→21:18)
[2016-09-03] MEDS ORDERED: IV NS 0.9% 250 ML IV ONE (12:43)
[2016-09-03] MEDS ORDERED: IV SET PRIMARY PUMP SET 1 EA INFUS.SET MC ONE (12:45)
[2016-09-03] MEDS ORDERED: SECONDARY IV SET 1 EA INFUS.SET MC ONE (12:46)
[2016-09-03 16:00] VITALS: BP 131/68
--- NOTE | 2016-09-03 19:07 | NUR ---
RN NOTES PT IS A/OX4. PT IS RESTING IN BED WATCHING TV. PATIENT DENIES ANY PAIN. NO SOB OR ANY S/S OF DISTRESS NOTED. BED IS IN LOW LOCKED POSITION. CALL LIGHT IS WITHIN REACH. WILL ENDORSE CARE TO PM SHIFT.
--- NOTE | 2016-09-03 19:16 | NUR ---
MS RN NOTES RECEIVED PT IN BED, A / O X 4 VERBALLY RESPONSIVE IN [place]. NO ACUTE DISTRESS, NO SOB NOTED. RESPIRATION IS EVEN AND UNLABORED. IV SITE ON LEFT HAND INTACT AND PATENT, NO S/S OF INFILTRATION NOTED. DENIES ANY PAIN OR DISCOMFORT AT THIS TIME. LCW PERMA CATH INTACT, WITH NO S/S OF INFECTION. NO S/S OF HYPO/ HYPERGLYCEMIA NOTED. ALL NEEDS ATTENDED ND MET, KEPT COMFORTABLE. CALL LIGHT WITHIN REACH. WILL CONTINUE TO MONITOR.
[2016-09-03 20:00] VITALS: BP 131/81
[2016-09-03] MEDS: ATORVASTATIN 10 MG TABLET PO SCH (21:19)
[2016-09-03] MEDS: INSULIN REGULAR, HUMAN 100 UNIT/ML 3 ML VIAL SQ PRN (21:28)
[2016-09-03 22:00] VITALS: BP 118/63
[2016-09-04] MEDS: METRONIDAZOLE 500MG/ NS 100ML 500 MG in PREMIX 1 EA IV SCH ×3 (04:45→21:43)
[2016-09-04] MEDS: BLOOD SUGAR DIAGNOSTIC 1 EACH STRIP IN SCH ×4 (06:18→21:48)
[2016-09-04 06:42] LABS: BASOPHILS # (AUTO) 0.1 /CMM (0.0-0.2); BASOPHILS % (AUTO) 1.7 % (0.0-2.0); EOSINOPHILS # (AUTO) 0.2 /CMM (0.0-0.7); EOSINOPHILS % (AUTO) 3.4 % (0.0-6.0); HEMATOCRIT 33 % (39-51); LYMPHOCYTES # (AUTO) 2.5 /CMM (0.8-4.8); LYMPHOCYTES % (AUTO) 38.4 % (20.0-44.0); MEAN CORPUSCULAR HEMOGLOBIN 31 PG (26.0-33.0); MEAN CORPUSCULAR HGB CONC 33 g/dl (31.0-36.0); MEAN CORPUSCULAR VOLUME 92 fL (80-96); MONOCYTES # (AUTO) 0.9 /CMM (0.1-1.30); MONOCYTES % (AUTO) 14.1 % (2.0-12.0); NEUTROPHILS # (AUTO) 2.7 /CMM (1.8-8.9); NEUTROPHILS % (AUTO) 42.4 % (43.0-81.0); PLATELET COUNT (AUTO) 113 /CMM (150-450); RDW COEFFICIENT OF VARIATION 14.3 (11.5-15.0); RED BLOOD CELL COUNT(AUTO) 3.55 MIL/uL (4.5-6.0); WHITE BLOOD COUNT (AUTO) 6.5 K/uL (4.3-11.0)
--- NOTE | 2016-09-04 07:37 | NUR ---
MS RN NOTES PT IN BED,WATCHING TV. A / O X 4 VERBALLY RESPONSIVE IN [place]. NO ACUTE DISTRESS, NO SOB NOTED. RESPIRATION IS EVEN AND UNLABORED. IV SITE ON LEFT HAND INTACT AND PATENT, NO S/S OF INFILTRATION NOTED. DENIES ANY PAIN OR DISCOMFORT AT THIS TIME. LCW PERMA CATH INTACT, WITH NO S/S OF INFECTION. NO S/S OF HYPO/ HYPERGLYCEMIA NOTED. ALL NEEDS ATTENDED ND MET, KEPT COMFORTABLE. CALL LIGHT WITHIN REACH. WILL ENDORSE TO NEXT SHIFT FOR KEVIN.
[2016-09-04 07:42] LABS: CALCIUM, SERUM 7.8 mg/dL (8.5-10.1); MAGNESIUM 2.8 mg/dL (1.8-2.4); PHOSPHORUS 7.4 mg/dL (2.5-4.9); POTASSIUM 5.7 mmol/L (3.5-5.1)
[2016-09-04 08:00] VITALS: BP 148/94
--- NOTE | 2016-09-04 08:00 | NUR ---
MS RN NOTES PT IS A/O X4. PT IS RESTING IN BED. IV IS PATENT AND INTACT. NO SOB OR ANY S/S NOTED. PT STATED THAT HE HAD 2 LOOSE BM'S THROUGHOUT THE NIGHT. BED IS IN LOW LOCKED POSITION. CALL LIGHT IS WITHIN REACH. WILL CONTINUE TO MONITOR THROUGHOUT SHIFT.
[2016-09-04 08:18] LABS: CREATININE 11.9 mg/dL (0.6-1.3)
[2016-09-04] MEDS: VANCOMYCIN HCL 125 MG/2.5 ML ORAL.SUSP PO SCH ×4 (09:37→21:46)
[2016-09-04] MEDS: SEVELAMER CARBONATE 800 MG TABLET PO SCH ×3 (09:38→17:59)
[2016-09-04] MEDS: FAMOTIDINE (20 MG) 20 MG TABLET PO SCH (09:38)
[2016-09-04] MEDS: CALCIUM ACETATE 667 MG TABLET PO SCH ×3 (09:38→17:59)
[2016-09-04] MEDS: FUROSEMIDE 40 MG TABLET PO SCH ×2 (09:39→18:04)
--- NOTE | 2016-09-04 13:59 | NUR ---
MS RN NOTES PATIENT BLOOD SUGAR CHECKED AT 1327. BLOOD SUGAR WAS 162. PATIENT HAD JUST FINISHED EATING LUNCH. INSULIN NOT GIVEN DUE TO BLOOD SUGAR DROPPING PROGRESSIVELY FAST AND PT QUICKLY GETTING HYPOGLYCEMIC. PATIENT IS ALSO CURRENTLY RECEIVING DIALYSIS. WILL CHECK AGAIN AT 1700 BEFORE DINNER.
--- NOTE | 2016-09-04 15:45 | NUR ---
PATIENT RECEIVED DIALYSIS. OUTPUT IS 1800 ML
[2016-09-04 16:00] VITALS: BP 126/73
--- NOTE | 2016-09-04 18:57 | NUR ---
MS RN NOTES PT IS IN BED WATCHING TV. PT IS A/O X4. NO SOB OR ANY S/S OF DISTRESS NOTED. IV IS INTACT AND PATENT. BED IS IN LOW LOCKED POSITION. CALL LIGHT IS WITHIN REACH. WILL ENDORSE CARE TO PM SHIFT.
--- NOTE | 2016-09-04 19:25 | NUR ---
MS RN NOTES RECEIVED PT IN BED, RESTING COMFORTABLY AT THIS TIME, AROUSES EASILY. A/O X4 , [place] SPEAKING. NO DISTRESS, NO SOB. IV SITE ON LEFT HAND INTACT AND PATENT, NO S/S OF INFILTRATION NOTED. NO S/S OF HYPO/ HYPERGLYCEMIA NOTED. ALL NEEDS ATTENDED. CALL LIGHT WITHIN REACH. WILL CONT TO MONITOR.
[2016-09-04 20:00] VITALS: BP 124/90
[2016-09-04] MEDS: ATORVASTATIN 10 MG TABLET PO SCH (21:46)
[2016-09-04 22:00] VITALS: BP 126/70
[2016-09-04] MEDS: INSULIN REGULAR, HUMAN 100 UNIT/ML 3 ML VIAL SQ PRN (22:20)
[2016-09-05] MEDS: METRONIDAZOLE 500MG/ NS 100ML 500 MG in PREMIX 1 EA IV SCH ×3 (04:50→21:45)
[2016-09-05] MEDS: BLOOD SUGAR DIAGNOSTIC 1 EACH STRIP IN SCH ×4 (06:34→21:45)
[2016-09-05 06:39] LABS: BASOPHILS # (AUTO) 0.1 /CMM (0.0-0.2); BASOPHILS % (AUTO) 2.1 % (0.0-2.0); EOSINOPHILS # (AUTO) 0.2 /CMM (0.0-0.7); HEMATOCRIT 32 % (39-51); HEMOGLOBIN 10.8 g/dL (13.5-17.5); LYMPHOCYTES # (AUTO) 2.4 /CMM (0.8-4.8); MEAN CORPUSCULAR HEMOGLOBIN 31 PG (26.0-33.0); MEAN CORPUSCULAR HGB CONC 34 g/dl (31.0-36.0); MEAN CORPUSCULAR VOLUME 93 fL (80-96); MONOCYTES # (AUTO) 0.9 /CMM (0.1-1.30); MONOCYTES % (AUTO) 15.4 % (2.0-12.0); NEUTROPHILS # (AUTO) 2.2 /CMM (1.8-8.9); NEUTROPHILS % (AUTO) 37.5 % (43.0-81.0); PLATELET COUNT (AUTO) 104 /CMM (150-450); RDW COEFFICIENT OF VARIATION 14.1 (11.5-15.0); RED BLOOD CELL COUNT(AUTO) 3.46 MIL/uL (4.5-6.0); WHITE BLOOD COUNT (AUTO) 5.9 K/uL (4.3-11.0)
--- NOTE | 2016-09-05 06:45 | NUR ---
MS RN NOTES PT IN BED, ASLEEP AT THIS TIME, AROUSES EASILY, A/O X4 , [place] SPEAKING. NO DISTRESS, NO SOB. IV SITE ON LEFT HAND INTACT AND PATENT, NO S/S OF INFILTRATION NOTED. NO S/S OF HYPO/ HYPERGLYCEMIA NOTED. ALL NEEDS ATTENDED. CALL LIGHT WITHIN REACH. WILL ENDORSE TO NEXT SHIFT FOR KEVIN.
[2016-09-05 07:13] LABS: CALCIUM, SERUM 8.1 mg/dL (8.5-10.1); MAGNESIUM 2.6 mg/dL (1.8-2.4); PHOSPHORUS 5.8 mg/dL (2.5-4.9); POTASSIUM 5.2 mmol/L (3.5-5.1)
[2016-09-05 07:15] LABS: CREATININE 9.6 mg/dL (0.6-1.3)
[2016-09-05 07:18] LABS: EOSINOPHILS % (MANUAL) 5 % (0-4); LYMPHOCYTES % (MANUAL) 34 % (16-48); MONOCYTES % (MANUAL) 15 % (0-11.0); NEUTROPHILS % (MANUAL) 46 (42-76); PLATELET ESTIMATE DECREASED
--- NOTE | 2016-09-05 07:30 | NUR ---
MS RN NOTES RECEIVED PATIENT AWAKE AOX3. BREATHING EVEN AND NON LABORED,ON RA O2 SAT 99%. WITH LCW PERMA CATH DRESSING DRY AND INTACT. NO S/S OF ANY DISCOMFORT OR RESPIRATORY DISTRESS NOTED. CALL LIGHT WITHIN REACH, BED IN LOW POSITION FOR SAFETY PRECAUTIONS. WILL CONTINUE TO MONITOR.
[2016-09-05 08:00] VITALS: BP 122/70
[2016-09-05] MEDS: SEVELAMER CARBONATE 800 MG TABLET PO SCH ×3 (08:37→17:14)
[2016-09-05] MEDS: CALCIUM ACETATE 667 MG TABLET PO SCH ×3 (08:37→17:14)
[2016-09-05] MEDS: FUROSEMIDE 40 MG TABLET PO SCH ×2 (08:37→17:14)
[2016-09-05] MEDS: FAMOTIDINE (20 MG) 20 MG TABLET PO SCH (08:37)
[2016-09-05] MEDS: VANCOMYCIN HCL 125 MG/2.5 ML ORAL.SUSP PO SCH ×4 (08:38→21:45)
[2016-09-05] MEDS: INSULIN REGULAR, HUMAN 100 UNIT/ML 3 ML VIAL SQ PRN ×3 (11:38→21:52)
--- NOTE | 2016-09-05 11:38 | NUR ---
MS RN NOTES BLOOD SUGAR 90MG/DL. ORANGE JUICE GIVEN. PATIENT IS ASYMPTOMATIC. WILL CONTINUE TO MONITOR.
--- NOTE | 2016-09-05 12:00 | NUR ---
MS RN NOTES S/B DR. LEBLANC WITH NEW ORDERS MADE AND CARRIED OUT.
[2016-09-05 16:00] VITALS: BP 124/68
--- NOTE | 2016-09-05 18:30 | NUR ---
MS RN NOTES ALL NEEDS ATTENDED AND ANTICIPATED. ENDORSED TO INCOMING SHIFT FOR CONTINUITY OF CARE
--- NOTE | 2016-09-05 19:35 | NUR ---
MS RN NOTE: PATIENT RESTING IN BED, NO ACUTE DISTRESS NOTED. BREATHING EVEN AND UNLABORED, NO SOB NOTED. IV TO LEFT HAND IN PLACE, HD SITE TO LEFT CHEST WALL IN PLACE, NO BLEEDING NOTED.NO S/S OF HYPER/HYPOGLYCEMIA NOTED. ISOLATION PRECAUTIONS IN PLACE. BED LOCKED AND IN LOWEST POSITION, CALL LIGHT IN REACH. WILL CONTINUE TO MONITOR.
[2016-09-05 20:00] VITALS: BP 127/69
[2016-09-05] MEDS: ATORVASTATIN 10 MG TABLET PO SCH (21:45)
--- NOTE | 2016-09-05 21:45 | NUR ---
MS RN NOTE: PATIENT BLOOD SUGAR LEVEL 185MG/DL, PATIENT TO RECEIVE 3 UNITS OF INSULIN PER SLIDING SCALE, DENIES S/S OF HYPER/HYPOGLYCEMIA AT THIS TIME. WILL CONTINUE TO MONITOR.
[2016-09-06] MEDS ORDERED: IV NS 0.9% 250 ML IV ONE (04:47)
[2016-09-06] MEDS: METRONIDAZOLE 500MG/ NS 100ML 500 MG in PREMIX 1 EA IV SCH ×3 (04:47→21:10)
--- NOTE | 2016-09-06 06:05 | NUR ---
MS RN NOTE: PATIENT RESTING IN BED, NO ACUTE DISTRESS NOTED. BREATHING EVEN AND UNLABORED, NO SOB NOTED. IV TO LEFT HAND IN PLACE, HD SITE TO LEFT CHEST WALL IN PLACE. PATIENT BLOOD SUGAR LEVEL 80MG/DL, NO INSULIN NEEDED PER SLIDING SCALE, NO S/S OF HYPOGLYCEMIA NOTED, JUICE AND SNACKS PROVIDED. ISOLATION PRECAUTIONS IN PLACE. BED LOCKED AND IN LOWEST POSITION, CALL LIGHT IN REACH. WILL ENDORSE TO DAY NURSE TO CONTINUE WITH PLAN OF CARE.
[2016-09-06] MEDS: BLOOD SUGAR DIAGNOSTIC 1 EACH STRIP IN SCH ×4 (06:35→21:03)
--- NOTE | 2016-09-06 07:30 | NUR ---
MS RN NOTES RECEIVED PATIENT AWAKE ON BED AOX3, BREATHING EVEN AND NON LABORED. NO ACUTE DISTRESS OR DISCOMFORT NOTED. IV LH INTACT AND PATENT. DENIES ANY PAIN AT THIS TIME. CALL LIGHT IN REACH, BED IN LOW POSITION FOR SAFETY MEASURES. WILL CONTINUE TO MONITOR.
[2016-09-06 08:00] VITALS: BP 168/70
[2016-09-06] MEDS: VANCOMYCIN HCL 125 MG/2.5 ML ORAL.SUSP PO SCH ×4 (09:07→21:04)
[2016-09-06] MEDS: FUROSEMIDE 40 MG TABLET PO SCH ×2 (09:07→16:34)
[2016-09-06] MEDS: FAMOTIDINE (20 MG) 20 MG TABLET PO SCH (09:07)
[2016-09-06] MEDS: CALCIUM ACETATE 667 MG TABLET PO SCH ×3 (09:07→17:12)
[2016-09-06] MEDS: SEVELAMER CARBONATE 800 MG TABLET PO SCH ×3 (09:07→17:12)
--- NOTE | 2016-09-06 11:38 | NUR ---
MS RN NOTES S/B DR. LEBLANC WITH NO NEW ORDERS MADE. PT FOR HEMODIALYSIS TODAY ORDERED.
[2016-09-06] MEDS: INSULIN REGULAR, HUMAN 100 UNIT/ML 3 ML VIAL SQ PRN ×2 (12:07→16:42)
[2016-09-06] MEDS ORDERED: EPOETIN ALFA (10,000 UNIT) 10,000 UNIT/ML VIAL IV ONE (12:30)
--- NOTE | 2016-09-06 13:00 | NUR ---
MS RN NOTES HEMODIALYSIS STARTED AT BEDSIDE, WITH PARLOR MAID NURSE. V/S BP 144/77, OR 74, RR 18. TEMP 98, OS SAT 96% RA. WILL CONTINUE TO MONITOR.
--- NOTE | 2016-09-06 15:56 | NUR ---
MS RN NOTES HEMODIALYSIS COMPLETED WITH NO AR NOTED. V/S BP 122/69, MO 86, RR 20, TEMP 98.2. OUTPUT 1,100ML. NO ACUTE DISTRESS OR DISCOMFORT NOTED. WILL CONTINUE TO MONITOR.
[2016-09-06 16:00] VITALS: BP 148/72
[2016-09-06] MEDS: LOPERAMIDE HCL (2 MG CAP) 2 MG CAPSULE PO PRN (16:37)
--- NOTE | 2016-09-06 18:18 | NUR ---
MS RN NOTES NEEDS ALL ATTENDED AND ANTICIPATED. ENDORSED TO INCOMING SHIFT FOR CONTINUITY OF CARE.
--- NOTE | 2016-09-06 19:30 | NUR ---
RN NOTES RECEIVED PT. AWAKE ON BED,MA/OX3, [place] SPEAKING, DENIES PAIN NO SOB, CALL LIGHT WITHIN REACH, SIDERAILS UPX2 CONTINUE TO MONITOR
[2016-09-06 20:00] VITALS: BP 148/78
[2016-09-06] MEDS: ATORVASTATIN 10 MG TABLET PO SCH (21:04)
[2016-09-07] MEDS: METRONIDAZOLE 500MG/ NS 100ML 500 MG in PREMIX 1 EA IV SCH (05:37)
--- NOTE | 2016-09-07 06:00 | NUR ---
RN NOTES BLOOD SUGAR-78- APPLE JUICE GIVEN
--- NOTE | 2016-09-07 06:53 | NUR ---
RN NOTES AWAKE, DENIES PAIN, NO SOB, MORNING CARE RENDERED, PT. NEEDS ATTENDED. ENDORSED TO DAYSHIFT NURSE FOR CONTINUITY OF CARE
[2016-09-07] MEDS: BLOOD SUGAR DIAGNOSTIC 1 EACH STRIP IN SCH ×4 (07:30→21:19)
--- NOTE | 2016-09-07 07:30 | NUR ---
MS RN NOTES RECEIVED PATIENT IN BED, AWAKE, A/O X3. BREATHING EVEN AND NON LABORED, NO SOB NOTED. TOLERATING ROOM AIR, NO SOB NOTED. HD CATH LEFT CHEST WALL, NO BLEEDING NOTED. CALL LIGHT WITHIN REACH. ON CONTACT ISOLATION FOR C-DIFF. PER PATIENT HE STILL HAVE EPISODE OF DIARRHEA THIS MORNING. CONTACT PRECAUTION OBSERVED.
[2016-09-07 08:00] VITALS: BP 113/49
[2016-09-07] MEDS: CALCIUM ACETATE 667 MG TABLET PO SCH ×3 (08:30→17:09)
[2016-09-07] MEDS: FUROSEMIDE 40 MG TABLET PO SCH ×2 (08:31→17:09)
[2016-09-07] MEDS: FAMOTIDINE (20 MG) 20 MG TABLET PO SCH (08:31)
[2016-09-07] MEDS: VANCOMYCIN HCL 125 MG/2.5 ML ORAL.SUSP PO SCH (08:31)
--- NOTE | 2016-09-07 08:35 | NUR ---
ACCU CHECK DONE AC BREAKFAST BY NIGHT RN, BS 78MG/DL, NO COVERAGE GIVEN THIS MORNING.
--- NOTE | 2016-09-07 08:42 | NUR ---
RENVELA NOT AVAILABLE AT THIS TIME. INFORMED PHARMACY, WILL F/U.
[2016-09-07] MEDS: SEVELAMER CARBONATE 800 MG TABLET PO SCH ×3 (08:59→17:09)
[2016-09-07] MEDS: FIDAXOMICIN 200 MG TABLET PO SCH ×2 (11:11→17:27)
[2016-09-07] MEDS: INSULIN REGULAR, HUMAN 100 UNIT/ML 3 ML VIAL SQ PRN ×2 (11:58→17:25)
[2016-09-07 16:00] VITALS: BP 126/73
[2016-09-07] MEDS: ACETAMINOPHEN 650 MG/20.3 ML UDC NG PRN (17:10)
--- NOTE | 2016-09-07 17:12 | NUR ---
PATIENT C/O HEADACHE 07/10. NO NAUSEA OR VOMITING, NO C/O DIZZINESS. AFEBRILE, ORAL TEMP 98.5. GIVEN TYLENOL 650MG PO PRN FOR HEADACHE, WILL REASSESS.
--- NOTE | 2016-09-07 17:33 | NUR ---
BS 155MG/DL. GIVEN 2 UNITS INSULIN REGULAR SQ PER [facility] COVERAGE.
--- NOTE | 2016-09-07 18:37 | NUR ---
MS RN CLOSING NOTES PATIENT IN BED, A/O X3. NOT IN DISTRESS. BLOOD SUGAR MONITORED, NO S/S OF HYPO/HYPERGLYCEMIA. ON ANTIBIOTIC FOR C-DIFF. PATIENT STILL WITH EPISODE OF DIARRHEA, ON CONTACT ISOLATION. STOOL FOR C-DIFF TEST SEND TO LAB. NO C/O PAIN AT THIS TIME, HEADACHE RESOLVED, TYLENOL 650MG PO PRN EFFECTIVE. CALL LIGHT WITHIN REACH. WILL ENDORSE TO OIL REFINERY PROCESS TECHNICIAN RN FOR CONTINUITY OF CARE.
[2016-09-07 20:27] VITALS: BP 123/65
[2016-09-07] MEDS: ATORVASTATIN 10 MG TABLET PO SCH (21:19)
[2016-09-07 22:00] VITALS: BP 108/60
[2016-09-08 06:28] LABS: BASOPHILS # (AUTO) 0.1 /CMM (0.0-0.2); BASOPHILS % (AUTO) 1.1 % (0.0-2.0); EOSINOPHILS # (AUTO) 0.2 /CMM (0.0-0.7); EOSINOPHILS % (AUTO) 1.9 % (0.0-6.0); HEMATOCRIT 33 % (39-51); HEMOGLOBIN 10.7 g/dL (13.5-17.5); LYMPHOCYTES # (AUTO) 2.8 /CMM (0.8-4.8); LYMPHOCYTES % (AUTO) 23.6 % (20.0-44.0); MEAN CORPUSCULAR HEMOGLOBIN 31 PG (26.0-33.0); MEAN CORPUSCULAR HGB CONC 33 g/dl (31.0-36.0); MEAN CORPUSCULAR VOLUME 94 fL (80-96); MONOCYTES # (AUTO) 1.5 /CMM (0.1-1.30); MONOCYTES % (AUTO) 12.5 % (2.0-12.0); NEUTROPHILS # (AUTO) 7.2 /CMM (1.8-8.9); NEUTROPHILS % (AUTO) 60.9 % (43.0-81.0); PLATELET COUNT (AUTO) 102 /CMM (150-450); RDW COEFFICIENT OF VARIATION 13.8 (11.5-15.0); RED BLOOD CELL COUNT(AUTO) 3.45 MIL/uL (4.5-6.0); WHITE BLOOD COUNT (AUTO) 11.9 K/uL (4.3-11.0)
[2016-09-08] MEDS: BLOOD SUGAR DIAGNOSTIC 1 EACH STRIP IN SCH ×4 (06:32→21:06)
[2016-09-08 06:41] LABS: CALCIUM, SERUM 8.2 mg/dL (8.5-10.1); MAGNESIUM 2.4 mg/dL (1.8-2.4); PHOSPHORUS 4.4 mg/dL (2.5-4.9); POTASSIUM 5.2 mmol/L (3.5-5.1)
[2016-09-08 06:42] LABS: CREATININE 10.3 mg/dL (0.6-1.3)
--- NOTE | 2016-09-08 07:30 | NUR ---
MS RN AM NOTES PATIENT IN BED, AWAKE, A/O X3. ON RA, NAD, NO SOB, BREATHING EVEN AND NON LABORED, DENIES ANY PAIN AT THIS TIME. HD CATH LEFT CHEST WALL, CDI DRESSING, AMBULATORY, SEE NURSING FLOWSHEET FOR SKIN ISSUES, ON RENAL DIET, CALL LIGHT WITHIN REACH. ON CONTACT ISOLATION FOR C-DIFF. PER ENVIRONMENTAL PROGRAMS SPECIALIST, PATIENT HE STILL HAVE EPISODE OF DIARRHEA 2X YESTERDAY AND 1 LAST NIGHT. CONTACT PRECAUTION OBSERVED. WILL CONT TO MONITOR.
[2016-09-08 08:00] VITALS: BP 119/70
--- NOTE | 2016-09-08 08:00 | NUR ---
MS RN NOTES [facility] HD NURSE AT BEDSIDE.
[2016-09-08] MEDS: CALCIUM ACETATE 667 MG TABLET PO SCH ×3 (08:42→18:20)
[2016-09-08] MEDS: FIDAXOMICIN 200 MG TABLET PO SCH ×2 (08:43→16:46)
[2016-09-08] MEDS: SEVELAMER CARBONATE 800 MG TABLET PO SCH ×3 (08:43→18:20)
[2016-09-08] MEDS: FUROSEMIDE 40 MG TABLET PO SCH ×2 (08:43→16:46)
[2016-09-08] MEDS: FAMOTIDINE (20 MG) 20 MG TABLET PO SCH (08:43)
--- NOTE | 2016-09-08 09:30 | NUR ---
MS RN NOTES UNABLE TO ADMINISTER SCHEDULED MEDICATIONS DUE TO HD ONGOING. WILL ADMINISTER LATER.
--- NOTE | 2016-09-08 10:30 | NUR ---
MS RN NOTES HEMODIALYSIS COMPLETED. 1000 ML OUT. WILL ADMINISTER DUE MEDS IN A WHILE.
--- NOTE | 2016-09-08 11:30 | NUR ---
MS RN NOTES ACCUCHECK DONE. BS 99 MG/DL. NO INSULIN COVERAGE GIVEN.
[2016-09-08 16:00] VITALS: BP 133/81
[2016-09-08] MEDS: ACETAMINOPHEN 650 MG/20.3 ML UDC NG PRN (16:01)
--- NOTE | 2016-09-08 16:50 | NUR ---
MS RN NOTES ACCUCHECK DONE. BS 143 MG/DL. ADMINISTERED 2 UNITS HUM R PER SLIDING SCALE.
--- NOTE | 2016-09-08 16:50 | NUR ---
MS RAMOS NOTES ACCUCHECK DONE. BS 143 MG/DL. PATIENT REFUSED HUM SLIDING SCALE AND STATED THAT HE WILL JUST HAVE HIS SCHEDULED HUMALOG 5 UNITS. Addendum: 09/08/16 at 1838 by KALYN MONTES RN CORRECTION: DISREGARD THIS DOCUMENTATION INTENDED FOR ANOTHER PATIENT.
[2016-09-08] MEDS: INSULIN REGULAR, HUMAN 100 UNIT/ML 3 ML VIAL SQ PRN (16:55)
[2016-09-08 18:00] VITALS: BP 133/81
--- NOTE | 2016-09-08 18:38 | NUR ---
MS RN CLOSING NOTES PATIENT IN BED, RESTING, A/O X3. ON RA, NAD, NO SOB, BREATHING EVEN AND NON LABORED, DENIES ANY PAIN AT THIS TIME. HD CATH LEFT CHEST WALL, CDI DRESSING, AMBULATORY, ON RENAL DIET, CALL LIGHT WITHIN REACH. C. DIFF NEGATIVE ON LABORATORY RESULT. CALL LIGHT WITHIN REACH. POSSIBLE DC TOMORROW. CALL LIGHT WITHIN REACH. ALL NEEDS MET. WILL ENDORSE TO NEXT SHIFT FOR KEVIN.
[2016-09-08 19:00] VITALS: BP 136/76
--- NOTE | 2016-09-08 19:30 | NUR ---
MS RN NOTES PATIENT IN BED, RESTING, A/O X3. ON RA, NAD, NO SOB, BREATHING EVEN AND NON LABORED, DENIES ANY PAIN AT THIS TIME. HD CATH LEFT CHEST WALL, CDI DRESSING, AMBULATORY, ON RENAL DIET, CALL LIGHT WITHIN REACH. C. DIFF NEGATIVE ON LABORATORY RESULT. CALL LIGHT WITHIN REACH. POSSIBLE DC TOMORROW. CALL LIGHT WITHIN REACH. WILL CONTINUE TO MONITOR.
[2016-09-08] MEDS: ATORVASTATIN 10 MG TABLET PO SCH (21:06)
[2016-09-08 22:00] VITALS: BP 133/81
--- NOTE | 2016-09-09 06:03 | NUR ---
MS RN NOTE PATIENT STABLE. ALL NEEDS MET AND ATTENDED TO. WILL ENDORSE TO DAY SHIFT FOR KEVIN.
[2016-09-09] MEDS: BLOOD SUGAR DIAGNOSTIC 1 EACH STRIP IN SCH (06:25)
--- NOTE | 2016-09-09 07:20 | NUR ---
RN MS NOTES PATIENT IN BED, ALERT AND ORIENTED, PARAGUAYAN SPEAKING, NO COMPLAINT OF PAIN, NO RESPIRATORY DISTRESS, CALL LIGHT WITHIN REACH, SAFETY MEASURES IN PLACED, WILL CONTINUE TO MONITOR.
[2016-09-09 08:00] VITALS: BP 122/74
[2016-09-09] MEDS: FIDAXOMICIN 200 MG TABLET PO SCH (08:24)
[2016-09-09] MEDS: FAMOTIDINE (20 MG) 20 MG TABLET PO SCH (08:24)
[2016-09-09] MEDS: FUROSEMIDE 40 MG TABLET PO SCH (08:24)
[2016-09-09] MEDS: SEVELAMER CARBONATE 800 MG TABLET PO SCH (08:24)
[2016-09-09] MEDS: CALCIUM ACETATE 667 MG TABLET PO SCH (08:24)
--- NOTE | 2016-09-09 09:00 | NUR ---
RN MS NOTES RECEIVED DISCHARGE ORDER FROM DR. LETICIA LOWRY.
--- NOTE | 2016-09-09 10:50 | NUR ---
RN MS NOTES PATIENT RECEIVED DISCHARGE INSTRUCTIONS AND VERBALIZED UNDERSTANDING, EXPLAINED MEDICATIONS CONTINUATION, TO F/UP WITH DR. PARMAR AND TO CONTINUE HEMODIALYSIS SCHEDULED, PATIENT SKIN WITH DISCOLORATION ON BUE AND BLE, PHOTOS TAKEN AND PLACED IN CHART, PATIENT IS IN STABLE CONDITION, NO DISTRESS NOTED, PIV ON LEFT HAND REMOVED, SECURED WITH GAUZE AND TAPE, NO DISTRESS NOTED, BELONGINGS RECONCILED. PATIENT LEFT THE FACILITY VIA TAXI AT 1050
== END 2016-09-09 10:50 | disposition home or self-care (01) | DRG 466 ==
LOC: ER 13:05 → MEDSG2 14:34
PROVIDERS: ADMIT Internal Medicine Nephrology; ATTEND Internal Medicine Nephrology
PROC: 5A1D60Z (ICD-10-PCS; principal; 2016-08-28)
DX: T82.41XA Breakdown (mechanical) of vascular dialysis catheter, initial encounter (principal); N18.6 End stage renal disease; I12.0 Hypertensive chronic kidney disease with stage 5 chronic kidney disease or end stage renal disease; E11.22 Type 2 diabetes mellitus with diabetic chronic kidney disease; A04.7 Enterocolitis due to Clostridium difficile; I48.91 Unspecified atrial fibrillation; Z99.2 Dependence on renal dialysis; D64.9 Anemia, unspecified; E78.5 Hyperlipidemia, unspecified; E87.5 Hyperkalemia; K21.9 Gastro-esophageal reflux disease without esophagitis; N40.0 Benign prostatic hyperplasia without lower urinary tract symptoms; E83.39 Other disorders of phosphorus metabolism; D63.1 Anemia in chronic kidney disease; E87.1 Hypo-osmolality and hyponatremia; E87.70 Fluid overload, unspecified; Y71.2 Prosthetic and other implants, materials and accessory cardiovascular devices associated with adverse incidents
CPT/HCPCS: 36415; 71010-TC; 74000-TC; 80048-TC; 80076-TC; 82962-TC; 83735-TC; 84100-TC; 85025-TC; 85610-TC; 85730-TC; 86850-TC; 86921-TC; 87081-TC; 90935-TC; A4216; A4606; A6403; J0885; J1644; J1815; J2250; J2765; J2997; J3010; J3490; J7042; J7050; Q9967; Z7610

== ENCOUNTER 2018-05-11 13:44 | Inpatient (IN) | payer MEDICAID ==
[~2018-05-11] VITALS: Ht 160 cm; Wt 57.2 kg
[~2018-05-11 13:44] MED LIST changes: -LABE100T PO; +LABE100T5 PO
--- NOTE | 2018-05-11 14:47 | NUR ---
sent [facility] for malfunstioning catheter. CATHETER AT UPPER LEFT CHEST, WRAPPED IN GAUZE. PT IS GHANAIAN-SPEAKING, AOX4, VSS, RR EVEN AND UNLABORED. SKIN WARM, DRY, INTACT. STATES HE DOESN'T PRODUCE MUCH URINE, R/T DIALYSIS. NO ACUTE DISTRESS NOTED. NO OTHER COMPLAINTS AT THIS TIME. READY FOR EVAL.
[2018-05-11 15:19] LABS: BASOPHILS # (AUTO) 0.2 /CMM (0.0-0.2); BASOPHILS % (AUTO) 2.4 % (0.0-2.0); EOSINOPHILS % (AUTO) 3.3 % (0.0-6.0); HEMATOCRIT 34 % (39-51); HEMOGLOBIN 10.8 g/dL (13.5-17.5); LYMPHOCYTES # (AUTO) 2.6 /CMM (0.8-4.8); LYMPHOCYTES % (AUTO) 27.1 % (20.0-44.0); MEAN CORPUSCULAR HGB CONC 32 g/dl (31.0-36.0); MEAN CORPUSCULAR VOLUME 92 fL (80-96); MONOCYTES # (AUTO) 1.5 /CMM (0.1-1.30); MONOCYTES % (AUTO) 15.3 % (2.0-12.0); NEUTROPHILS # (AUTO) 4.9 /CMM (1.8-8.9); NEUTROPHILS % (AUTO) 51.9 % (43.0-81.0); PLATELET COUNT (AUTO) 292 /CMM (150-450); RED BLOOD CELL COUNT(AUTO) 3.65 MIL/uL (4.5-6.0); WHITE BLOOD COUNT (AUTO) 9.5 K/uL (4.3-11.0)
[2018-05-11 15:27] LABS: CALCIUM, SERUM 9.4 mg/dL (8.5-10.1); POTASSIUM 4.9 mmol/L (3.5-5.1)
[2018-05-11 15:28] LABS: CREATININE 8.1 mg/dL (0.6-1.3)
--- NOTE | 2018-05-11 15:42 | NUR ---
CALLED AND PAGED DR LEBLANC
--- NOTE | 2018-05-11 16:24 | NUR ---
Patient is resting comfortably in bed with eyes closed. Easily aroused. VSS
--- NOTE | 2018-05-11 16:25 | NUR ---
Natalie downey in ED - 05/11/18 at 1627 by KOJO Pt is assigned to [facility]#: [id number], DX: CHF/Dehydration, and accepting MD: Dr. Turner
--- NOTE | 2018-05-11 16:27 | NUR ---
Natalie downey in [facility] - 05/11/18 at 1652 by KOJO UPDATE: Pt is assigned to [facility]#: [id number], DX: CHF/Dehydration, and accepting MD: Dr. Turner
--- NOTE | 2018-05-11 16:52 | NUR ---
UPDATE: Pt is assigned to tele #: [id number], DX: ESRD/Dialysis Catheter Malfunction, and accepting MD: Dr. Turner
--- NOTE | 2018-05-11 16:58 | NUR ---
UNABLE TO OBTAIN URINE VIA STRAIGHT CATH
--- NOTE | 2018-05-11 17:16 | NUR ---
pt is assigned to [facility]#: [id number]
--- NOTE | 2018-05-11 17:37 | NUR ---
REPORT GIVEN TO RICHARD URIBE FOR 311-1 TELE Addendum: 05/11/18 at 1854 by HOLDEN NURSE GRACIA
--- NOTE | 2018-05-11 18:01 | NUR ---
PT TRANSFERRED TO FLOOR
--- NOTE | 2018-05-11 18:10 | NUR ---
CHARACTER IMPERSONATOR NOTES RECEIVED PT FROM E.R. STAFF, AWAKE, ALERT AND ORIENTED, ABLE TO AMBULATE TO BED WITH SLOW AND STEADY GAIT, RESPIRATIONS NORMAL, ON ROOM AIR, WITH COMPLAINT OF SLIGHT ABDOMINAL PAIN 2/10, NOT IN DISTRESS, ROOM SET UP ORIENTATION PROVIDED TO PT, VERBALIZED UNDERSTANDING, DIALYSIS CATHETER AT LEFT UPPER CHEST IN PLACE, NO BLEEDING NOTED, VITAL SIGNS TAKEN, ON TELE MONITORING, SINUS RHYTHM ON THE MONITOR, AWAITING ADMITTING ORDERS FROM MD.
[2018-05-11 18:30] VITALS: BP 118/75
--- NOTE | 2018-05-11 19:51 | NUR ---
TELE/RN RECEIVE PATIENT APPEAR SLEEPING, APPEAR COMFORTABLE, NO DISTRESS NOTED, CALL LIGHT IN REACH. WILL MONITOR.
[2018-05-11 20:00] VITALS: BP 117/65
--- NOTE | 2018-05-11 22:00 | NUR ---
TELE/RN PATIENT AWAKE, REFUSED PHOTOS OF THE BLE DISCOLORATION AND DRY, SCALY SKIN, AND WOUND AT RT. FOOT PLANTAR.
[2018-05-12] VITALS: BP 113/76
[2018-05-12 04:00] VITALS: BP 113/70
--- NOTE | 2018-05-12 07:09 | NUR ---
MS/RN PATIENT IS SLEEPING AT THIS TIME, AROUSABLE, APPEAR COMFORTABLE, NO DISTRESS NOTED, CALL LIGHT IN REACH. ALL NEEDS ATTENDED AT THIS TIME. WILL CONTINUE TO MONITOR.
--- NOTE | 2018-05-12 07:55 | NUR ---
CANADIAN BACON TIER NOTES PATIENT RECEIVED RESTING INSIDE ROOM. AWAKE, ALERT AND ORIENTED, VERBALLY RESPONSIVE AND RESPONDS TO VERBAL AND TACTILE STIMULI. BREATHING EVEN AND UNLABORED. DENIES ANY PAIN OR DISCOMFORT. NO CHANGES IN LOC. RECEIVED ENDORSEMENT FROM PREVIOUS SHIFT THAT PATIENT REFUSED TO HAVE PICTURES TAKEN FOR WOUND/SKIN DOCUMENTATION. EXPLAINED PROCEDURE TO PATIENT BUT PATIENT CONTINUES TO REFUSE TO HAVE PICTURES TAKEN. RISKS AND BENEFITS EXPLAINED BUT TO NO AVAIL. PATIENT CONTINUES TO REFUSE, VERBALIZING THAT THERE IS NO REASON FOR PICTURES TO BE TAKEN. RESPECTED PATIENT DECISION/RIGHTS. WILL CONTINUE TO MONITOR. BED LOCKED AND IN LOW POSITION. BILATERAL UPPER SIDE RAILS UP AND LOCKED. CALL LIGHT WITHIN EASY REACH
[2018-05-12 08:06] VITALS: BP 113/71
[2018-05-12] MEDS: CALCITRIOL 0.25 MCG CAPSULE PO SCH (08:27)
[2018-05-12] MEDS: INSULIN GLARGINE, 100 UNIT/ML CARTRIDGE SQ SCH (08:27)
[2018-05-12] MEDS: SEVELAMER CARBONATE 0.8 GM POWD.PACK PO SCH ×3 (08:27→18:04)
--- NOTE | 2018-05-12 08:33 | NUR ---
CW OPERATOR NOTES RECEIVED CALL FROM DR. PARMAR. WITH NEW ORDER THAT PATIENT WILL HAVE REPLACEMENT OF DIALYSIS CATHETER THIS AFTERNOON. VERIFIED INFORMED CONSENT OBTAINED BY MD FROM PATIENT AND WITNESSED BY LICENSED STAFF. PATIENT PLACED ON NPO AFTER BREAKFAST AT 0815, DR. PARMAR AWARE. VERBALIZED THAT PATIENT MAY BE ON SURGERY AROUND 1600 TODAY. PATIENT MADE AWARE AND VERBALIZED UNDERSTANDING. AWARE THAT HE WILL BE NPO UNTIL PROCEDURE. WILL CONTINUE TO MONITOR
[2018-05-12] MEDS ORDERED: SODIUM POLYSTYRENE SULFONATE 15 G/60 ML BOTTLE PO ONE (13:30)
--- NOTE | 2018-05-12 13:43 | NUR ---
MS RN NOTES RECEIVED CALL FROM DR. PARMAR, STATING SURGERY WILL RE POSTPONED AND WILL BE SCHEDULED ON 05/13/18. PER DR. PARMAR, NO CARDIO CLEARANCE IS NEEDED. PATIENT TO BE NPO AFTER MIDNIGHT. TO GIVE KAYEXALATE 30G PO X [address] IN AM[address] DR[address] HER PRESENT IN UNIT AND MADE AWARE. PLACED ORDERS FOR KAYEXALATE 30G PO X 1 AND CMP IN AM. ORDERS NOTED AND CARRIED OUT. PATIENT RESTARTED ON RENAL DIET. PATIENT MADE AWARE AND VERBALIZED UNDERSTANDING. WILL CONTINUE TO MONITOR
[2018-05-12 16:00] VITALS: BP 114/67
--- NOTE | 2018-05-12 18:51 | NUR ---
MS RN NOTES PATIENT RESTING INSIDE ROOM. AWAKE, ALERT AND ORIENTED X 3, VERBALLY RESPONSIVE AND RESPONDS TO VERBAL AND TACTILE STIMULI. BREATHING EVEN AND UNLABORED. NO SOB OR ACUTE DISTRESS. NO CHANGES IN LOC NOTED. PATIENT CALM AND RELAXED. ALL NURSING NEEDS ATTENDED AND MET. PATIENT TO BE NPO AFTER MIDNIGHT. PATIENT AWARE AND VERBALIZED UNDERSTANDING. WILL ENDORSE TO INCOMING SHIFT FOR KEVIN. BED LOCKED AND IN LOW POSITION. BILATERAL UPPER SIDE RAILS UP AND LOCKED. CALL LIGHT WITHIN EASY REACH
--- NOTE | 2018-05-12 19:25 | NUR ---
MS/RN NOTES RECEIVED PT. LYING IN BED. PT. IS AWAKE, ALERT AND ORIENTED X3. BREATHING EVEN AND UNLABORED ON ROOM AIR. NO SOB, RESPIRATORY DISTRESS OR COMPLAINTS OF PAIN NOTED AT THIS TIME. PT. WITH LEFT UPPER ARM 20 GAUGE IV SALINE LOCK PRESENT, PATENT AND INTACT. PT. WITH LEFT CHEST WALL HD CATH PRESENT AND INTACT. PER DAYSHIFT NURSE PT. IS TO BE NPO AFTER MIDNIGHT PENDING REPLACEMENT OF HD CATH TOMORROW WITH DR. PARMAR. PER DAYSHIFT NURSE CONSENT IS SIGNED AND PLACED IN PT. CHART. PER DAYSHIFT NURSE STATED PT. MAY RECEIVE DIALYSIS TONIGHT PENDING AVAILABILITY OF DIALYSIS NURSE. BED LOCKED AND IN LOWEST POSITION, SIDE RAILS UP X2, CALL LIGHT WITHIN REACH, WILL CONTINUE TO MONITOR.
[2018-05-12 20:00] VITALS: BP 114/75
--- NOTE | 2018-05-12 21:41 | NUR ---
MS/RN NOTES DIALYSIS NURSE DAYAN PRESENT AT PT. BEDSIDE, PER DIALYSIS NURSE PT. HD CATHETER IS FLUSHING BUT NOT FLOWING THROUGH THE DIALYSIS MACHINE AND SHE IS UNABLE TO PERFORM DIALYSIS ON THE PT. AT THIS TIME. WILL CONTINUE TO MONITOR.
[2018-05-13] VITALS (8 sets, daily range): BP systolic 100–138; BP diastolic 58–85
--- NOTE | 2018-05-13 06:18 | NUR ---
MS/RN NOTES PT. IS LYING IN BED RESTING, BREATHING EVEN AND UNLABORED ON ROOM AIR. NO SOB, RESPIRATORY DISTRESS OR COMPLAINTS OF PAIN NOTED AT THIS TIME AND THROUGHOUT SHIFT. PT. WITH LEFT UPPER ARM 20 GAUGE IV SALINE LOCK PRESENT, PATENT AND INTACT. PT. WITH LEFT CHEST WALL HD CATH PRESENT AND INTACT. PT. REMAINS NPO SINCE MIDNIGHT PENDING REPLACEMENT OF HD CATH TODAY WITH DR. PARMAR. ALL PT. NEEDS MET. BED LOCKED AND IN LOWEST POSITION, SIDE RAILS UP X2, CALL LIGHT WITHIN REACH, WILL ENDORSE TO DAYSHIFT NURSE FOR CONTINUITY OF CARE.
[2018-05-13 07:07] LABS: BASOPHILS # (AUTO) 0.2 /CMM (0.0-0.2); BASOPHILS % (AUTO) 2.1 % (0.0-2.0); EOSINOPHILS % (AUTO) 6.8 % (0.0-6.0); HEMATOCRIT 33 % (39-51); HEMOGLOBIN 10.4 g/dL (13.5-17.5); LYMPHOCYTES # (AUTO) 2.3 /CMM (0.8-4.8); LYMPHOCYTES % (AUTO) 29.3 % (20.0-44.0); MEAN CORPUSCULAR HGB CONC 32 g/dl (31.0-36.0); MEAN CORPUSCULAR VOLUME 92 fL (80-96); MONOCYTES % (AUTO) 12.9 % (2.0-12.0); NEUTROPHILS # (AUTO) 3.8 /CMM (1.8-8.9); NEUTROPHILS % (AUTO) 48.9 % (43.0-81.0); PLATELET COUNT (AUTO) 278 /CMM (150-450); RED BLOOD CELL COUNT(AUTO) 3.58 MIL/uL (4.5-6.0); WHITE BLOOD COUNT (AUTO) 7.8 K/uL (4.3-11.0)
--- NOTE | 2018-05-13 07:27 | NUR ---
RN OPENING NOTES PT WAS RECEIVED ON BED AT LOWEST AND LOCKED POSITION WITH SIDE RAILS UP X2, A/O X3-4 AZERI SPEAKING, BREATHING EVEN AND UNLABORED ON RA, NO S/S OF PAIN OR DISTRESS NOTED, IV PATENT AND INTACT, CURRENTLY NPO FOR HD CATH REPLACEMENT, SAFETY PRECAUTIONS IN PLACE, CALL LIGHT WITHIN REACH, WILL MONITOR ACCORDINGLY
[2018-05-13 07:33] LABS: ALBUMIN 2.9 g/dL (3.4-5.0); BILIRUBIN,TOTAL 0.5 mg/dL (0.2-1.0); CALCIUM, SERUM 9.3 mg/dL (8.5-10.1); MAGNESIUM 2.8 mg/dL (1.8-2.4); PHOSPHORUS 3.9 mg/dL (2.5-4.9); POTASSIUM 5.2 mmol/L (3.5-5.1); TOTAL PROTEIN, SERUM 7.4 g/dL (6.4-8.2)
[2018-05-13 07:42] LABS: CREATININE 10.7 mg/dL (0.6-1.3)
[2018-05-13] MEDS: SEVELAMER CARBONATE 0.8 GM POWD.PACK PO SCH ×3 (08:00→17:18)
[2018-05-13] MEDS: CALCITRIOL 0.25 MCG CAPSULE PO SCH (08:47)
[2018-05-13] MEDS: INSULIN GLARGINE, 100 UNIT/ML CARTRIDGE SQ SCH (09:00)
--- NOTE | 2018-05-13 12:20 | NUR ---
RN NOTES PT TAKEN BY SURGERY AT THIS TIME
[2018-05-13] MEDS ORDERED: HEPARIN SODIUM, PORCINE 1,000 UNIT/ML VIAL ONE (12:23)
[2018-05-13] MEDS ORDERED: LIDOCAINE HCL/PF 1% 30 ML SDV ONE (12:23)
[2018-05-13] MEDS ORDERED: FENTANYL PF 100MCG/2ML AMPUL ONE (13:07)
--- NOTE | 2018-05-13 14:30 | NUR ---
RN NOTES PT BROUGHT BACK BY SURGERY AT THIS, A/O X4, VS WNL
--- NOTE | 2018-05-13 19:02 | NUR ---
RN CLOSING NOTES PT IN BED AT LOWEST AND LOCKED POSITION WITH SIDE RAILS UP X2, A/O X3-4 UZBEK SPEAKING, BREATHING EVEN AND UNLABORED ON RA, NO S/S OF PAIN OR DISTRESS NOTED, IV PATENT AND INTACT, HD CATH REPLACED EARLIER TODAY, SAFETY PRECAUTIONS IN PLACE, CALL LIGHT WITHIN REACH, WILL MONITOR ACCORDINGLY
--- NOTE | 2018-05-13 19:15 | NUR ---
MS/RN NOTES RECEIVED PT. LYING IN BED. PT. IS AWAKE, ALERT AND ORIENTED X3. BREATHING EVEN AND UNLABORED ON ROOM AIR. NO SOB, RESPIRATORY DISTRESS OR COMPLAINTS OF PAIN NOTED AT THIS TIME. PT. WITH LEFT UPPER ARM 20 GAUGE IV SALINE LOCK PRESENT, PATENT AND INTACT. PT. IS S/P HD CATH REPLACEMENT (LEFT SIDED PERMA-CATH) TODAY WITH DR. PARMAR. PT. WITH DIALYSIS NURSE PRESENT AT BEDSIDE, PT. IS HAVING DIALYSIS AT THIS TIME. BED LOCKED AND IN LOWEST POSITION, SIDE RAILS UP X2, CALL LIGHT WITHIN REACH, WILL CONTINUE TO MONITOR.
--- NOTE | 2018-05-14 06:20 | NUR ---
MS/RN NOTES PT. IS LYING IN BED RESTING. BREATHING EVEN AND UNLABORED ON ROOM AIR. NO SOB, RESPIRATORY DISTRESS OR COMPLAINTS OF PAIN NOTED AT THIS TIME. PT. WITH LEFT UPPER ARM 20 GAUGE IV SALINE LOCK PRESENT, PATENT AND INTACT. PT. WITH LEFT SIDED PERMA-CATH PRESENT AND INTACT. ALL PT. NEEDS MET. BED LOCKED AND IN LOWEST POSITION, SIDE RAILS UP X2, CALL LIGHT WITHIN REACH, WILL ENDORSE TO DAYSHIFT NURSE FOR CONTINUITY OF CARE.
--- NOTE | 2018-05-14 07:36 | NUR ---
RN OPENING NOTE RECEIVED PT IN BED, SLEEPING AND EASILY AROUSABLE. NO ACUTE DISTRESS NOTED AT THIS TIME, BREATHING IS EVEN AND UNLABORED ON ROOM AIR. L UPPER ARM #20G IV IS SALINE LOCKED WITHOUT REDNESS OR SWELLING. ALL NEEDS ATTENDED TO, BED IS LOCKED AND IN LOWEST POSITION, SIDE RIALS UP X2, BED ALARM ON, CALL LIGHT WITHIN REACH.
[2018-05-14 08:00] VITALS: BP 95/61
[2018-05-14] MEDS: CALCITRIOL 0.25 MCG CAPSULE PO SCH (08:28)
[2018-05-14] MEDS: SEVELAMER CARBONATE 0.8 GM POWD.PACK PO SCH ×2 (08:28→12:34)
[2018-05-14] MEDS: INSULIN GLARGINE, 100 UNIT/ML CARTRIDGE SQ SCH (09:16)
[2018-05-14 10:00] VITALS: BP 95/61
--- NOTE | 2018-05-14 10:27 | NUR ---
MS RN PAGED PATROL CAPTAIN PAGED PATROL CAPTAIN FOR PT REQUEST FOR PAIN MEDICATION. AWAITING RESPONSE.
[2018-05-14] MEDS ORDERED: ACETAMINOPHEN 650 MG/20.3 ML UDC NG PRN (11:30)
[2018-05-14] MEDS ORDERED: HYDROCODONE/APAP 5/325MG 1 EACH TABLET PO PRN (11:30)
[2018-05-14] MEDS ORDERED: ACETAMINOPHEN 650 MG/20.3 ML UDC PO PRN (11:30)
--- NOTE | 2018-05-14 13:30 | NUR ---
MS RN D/C LEFT MESSAGE WITH BROTHER CHUCKY REGARDING PT DISCHARGE AND NEED FOR TRANSPORTATION, AWAITING RESPONSE
[2018-05-14 16:00] VITALS: BP 129/81
--- NOTE | 2018-05-14 16:15 | NUR ---
MS RN D/C SPOKE WITH CHUCKY PARISI (BROTHER) REGARDING PT DISCHARGE AND TRANSPERTATION. PER CHUCKY, HIS SISTER ALIS WILL BE COMING TO DRIVE THE PT HOME. WILL INFORM CM AND CHARGE NURSE
--- NOTE | 2018-05-14 17:30 | NUR ---
MS RN PT DISCHARGED PT DISCHARGED HOME VIA PRIVATE CAR AND ACCOMPANIED BY SISTER IN MEDICALLY STABLE CONDITION. PT MENTAL STATUS AT BASELINE, VS WNL. DENIES SOB, CHEST PAIN, AND PAIN. LEFT HAND PERIPHERAL IV REMOVED WITH CATHETER TIP INTACT. DRESSING CHANGED USING STERIL TECHNIQUE PER PROTOCOL OF LEFT CHEST HD CATH. DISCHARGE PAPERWORK AND EDUCATION PROVIDED PER PROTOCOL. PT REFUSED WOUND DOCUMENTATION UPON ADMISSION AND REFUSED WOUND DOCUMENTATION UPON DISCHARGE. RISKS AND BENEFITS EXPLAINED, PT STILL REFUSED. ALL BELONGINGS ACCOUNTED FOR AND BELONGINGNESS LIST SIGNED AND PLACED IN CHART. REVIEWED DR RECOMMENDATIONS WELL DIALYSES DAYS OF MWF AT [facility] AT 1030. THE PT AND SISTER VERBALIZED UNDERSTANDING. INFORMED PT TO CALL 911 OR RETURN TO THE NEAREST ER FOR CHEST PAIN, SOB, INCREASED DRAINAGE OR FOUL ODOR FROM THE NEW HD CATH SITE, UNILATERAL CALF SWELLING, OR FEVER THAT DOES NOT RESOLVE WITH TYLENOL. PT AND SISTER VERBALIZED UNDERSTANDING. THE NURSE ACCOMPANIED THE PT AND SISTER TO THE MAIN LOBBY VIA WHEELCHAIR AND ASSISTED THE PT TO HIS CAR WITHOUT INCIDENT.
== END 2018-05-14 17:30 | disposition home or self-care (01) | DRG 466 ==
LOC: ER 13:50 → TELE 16:29 → MED 05-12 10:33
PROVIDERS: ADMIT Internal Medicine Nephrology; ATTEND Internal Medicine
PROC: 5A1D70Z Performance of Urinary Filtration, Intermittent, Less than 6 Hours Per Day (ICD-10-PCS; 2018-05-11)
PROC: 5A1D70Z Performance of Urinary Filtration, Intermittent, Less than 6 Hours Per Day (ICD-10-PCS; 2018-05-12)
PROC: 0J2SXYZ Change Other Device in Head and Neck Subcutaneous Tissue and Fascia, External Approach (ICD-10-PCS; principal; 2018-05-13)
DX: T82.41XA Breakdown (mechanical) of vascular dialysis catheter, initial encounter (principal); I13.11 Hypertensive heart and chronic kidney disease without heart failure, with stage 5 chronic kidney disease, or end stage renal disease; E11.22 Type 2 diabetes mellitus with diabetic chronic kidney disease; E87.5 Hyperkalemia; I48.91 Unspecified atrial fibrillation; N18.6 End stage renal disease; Z99.2 Dependence on renal dialysis; Y92.009 Unspecified place in unspecified non-institutional (private) residence as the place of occurrence of the external cause; Y71.2 Prosthetic and other implants, materials and accessory cardiovascular devices associated with adverse incidents; N40.0 Benign prostatic hyperplasia without lower urinary tract symptoms; E78.5 Hyperlipidemia, unspecified; Z79.4 Long term (current) use of insulin; Z79.899 Other long term (current) drug therapy; N25.81 Secondary hyperparathyroidism of renal origin; K21.9 Gastro-esophageal reflux disease without esophagitis; N39.0 Urinary tract infection, site not specified
CPT/HCPCS: 36415; 71045-TC; 80048-TC; 80053-TC; 82962-TC; 83735-TC; 84100-TC; 85025-TC; 85730-TC; 86850-TC; 87081-TC; 90935-TC; A6402; C1750; C1769; G0378; J0690; J1644; J1815; J2704; J3010; J3490

== ENCOUNTER 2018-08-16 12:32 | Inpatient (IN) | payer MEDICAID ==
[~2018-08-16] VITALS: Ht 162.6 cm; Wt 59.1 kg
[~2018-08-16 12:32] MED LIST changes: -FAMO20TA8 PO; -FURO40TA5 PO; -LABE100T5 PO; -NIFE60TA69 PO; -PRAV40TA PO
--- NOTE | 2018-08-16 12:50 | NUR ---
PATIENT CAME IN FOR FOOT PAIN, UPON ASSESSMENT PATIENT NOTED TO HAVE WOUND ON LEONARD. FEET. PATIENT STATED, IN CROATIAN, HE DROPPED HOT WATER ON THEM X4-5 DAYS AGO. PATIENT PLACED ON A GOWN AND THE MONITOR. WILL CONTINUE TO MONITOR.
--- NOTE | 2018-08-16 13:00 | NUR ---
MD AT BEDSIDE FOR EVAL. ESTABLISHED AN IV LINE ON RIGHT WRIST G20.
[2018-08-16] MEDS ORDERED: MORPHINE SULFATE INJ 2 MG/ML DISP.SYRIN ONE (13:19)
[2018-08-16] MEDS ORDERED: ONDANSETRON HCL/PF 4 MG/2 ML VIAL ONE (13:19)
[2018-08-16] MEDS ORDERED: VANCOMYCIN 1 GM in IV D5W 250 ML IV ONE (13:30)
[2018-08-16] MEDS ORDERED: ONDANSETRON HCL/PF 4 MG/2 ML VIAL IVP ONE (13:30)
[2018-08-16] MEDS ORDERED: MORPHINE SULFATE INJ 2 MG/ML DISP.SYRIN IV ONE (13:30)
[2018-08-16] MEDS ORDERED: PIPERACILLIN /TAZOBACTAM 3.375 G in IV D5W 50 ML IV ONE (13:30)
[2018-08-16 13:49] LABS: CALCIUM, SERUM 8.4 mg/dL (8.5-10.1); CARBON DIOXIDE 25 mmol/L (21-32); CHLORIDE 93 mmol/L (98-107); CREATININE 6.7 mg/dL (0.6-1.3); GLUCOSE 131 mg/dL (74-106); POTASSIUM 4.7 mmol/L (3.5-5.1); SODIUM SERUM 130 mmol/L (136-145); UREA NITROGEN, BLOOD 34 mg/dL (7-18)
[2018-08-16 13:55] LABS: ALANINE AMINOTRANSFERASE 13 U/L (12-78); ALBUMIN 2.9 g/dL (3.4-5.0); ALKALINE PHOSPHATASE 207 U/L (46-116); ASPARTATE AMINOTRANSFERASE 21 U/L (15-37); BILIRUBIN,DIRECT 0.4 mg/dL (0.0-0.2); TOTAL PROTEIN, SERUM 7.9 g/dL (6.4-8.2)
[2018-08-16 13:58] LABS: BASOPHILS # (AUTO) 0.1 /CMM (0.0-0.2); BASOPHILS % (AUTO) 0.3 % (0.0-2.0); EOSINOPHILS % (AUTO) 0.3 % (0.0-6.0); HEMATOCRIT 29 % (39-51); HEMOGLOBIN 9.5 g/dL (13.5-17.5); LYMPHOCYTES # (AUTO) 0.8 /CMM (0.8-4.8); LYMPHOCYTES % (AUTO) 5.6 % (20.0-44.0); MEAN CORPUSCULAR HGB CONC 33 g/dl (31.0-36.0); MEAN CORPUSCULAR VOLUME 92 fL (80-96); MONOCYTES # (AUTO) 1.8 /CMM (0.1-1.30); NEUTROPHILS # (AUTO) 12.2 /CMM (1.8-8.9); NEUTROPHILS % (AUTO) 81.8 % (43.0-81.0); PLATELET COUNT (AUTO) 189 /CMM (150-450); RED BLOOD CELL COUNT(AUTO) 3.14 MIL/uL (4.5-6.0); WHITE BLOOD COUNT (AUTO) 14.9 K/uL (4.3-11.0)
--- NOTE | 2018-08-16 15:38 | NUR ---
CALLED [facility] COOK CHEF WAS PAGED.
--- NOTE | 2018-08-16 16:00 | NUR ---
TELE 117-2
--- NOTE | 2018-08-16 16:04 | NUR ---
REPORT GIVEN TO CHIQUI RAMOS GOING TO ROOM 117-2. PATIENT IN STABLE CONDITION. A/OX3, NO DISTRESS NOTED.
[2018-08-16 16:30] VITALS: BP 105/64
[2018-08-16] MEDS ORDERED: MORPHINE SULFATE INJ 2 MG/ML DISP.SYRIN IV PRN (16:30)
[2018-08-16] MEDS ORDERED: ONDANSETRON HCL/PF 4 MG/2 ML VIAL IVP PRN (16:30)
[2018-08-16] MEDS ORDERED: MAGNESIUM HYDROXIDE 30 ML UDC PO PRN (16:30)
[2018-08-16] MEDS ORDERED: HYDROCODONE/APAP 5/325MG 1 EACH TABLET PO PRN (16:30)
[2018-08-16] MEDS ORDERED: ZOLPIDEM TARTRATE 5 MG TABLET PO PRN (16:30)
[2018-08-16] MEDS ORDERED: ACETAMINOPHEN 325 MG TABLET PO PRN (16:30)
[2018-08-16] MEDS ORDERED: MAG HYDROX/AL HYDROX/SIMETH 30 ML UDC PO PRN (16:30)
[2018-08-16] MEDS ORDERED: Z GUARD REMEDY 2 OZ OINT TP PRN (16:30)
--- NOTE | 2018-08-16 16:35 | NUR ---
RECEIVED PATIENT FROM ER. PATIENT GAMBIAN SPEAKING A/OX4 ADMITTED FOR BLE FEET/TOE CELLULITIS AND RODAS. PATIENT DENIES PAIN, SOB, DIFFICULTY BREATHING AT THIS TIME. STATES MORPHINE WORKED IN ER. ROOM AIR STABLE. NO OXYGEN REQUIRED. IV SITE C/D/I/P AND SALINE LOCKED. PATIENT STATES HE IS ANURIC AND RECEIVED HD YESTERDAY. LEFT CW HD CATH IN PLACE DRESSING C/D/I. PER PATIENT HE SPILLED HOT WATER ON HIS FEET DAYS AGO WHICH RESULTED IN THE RODAS TO HIS FEET AND HIS SISTER BROUGHT HIM IN TO THE HOSPITAL. PER PATIENT HE IS NOT HOMELESS BUT LIVES WITH HIS SISTER. DR JACKSON FOR ADMISSION AND IS AWARE. PATIENT PENDING WOUND CONSULT. ALL NEEDS ASSESSED AND MET. BED BATH COMPLETED. WOUND CARE COMPLETED. PATIENT CALL LIGHT IN REACH. SAFETY, SKIN, ASPIRATION PRECAUTIONS IN PLACE AND WILL MONITOR.
--- NOTE | 2018-08-16 16:38 | NUR ---
PATIENT TRANSFERRED TO ROOM 117-2 VIA ACLS PROTOCOL. VITALS STABLE, PATIENT A/OX3, NO DISTRESS NOTED. ENDORSED TO CHIQUI.
[2018-08-16] MEDS ORDERED: FEE PK DOSING 1 MIN EA MC ONE (16:43)
--- NOTE | 2018-08-16 18:52 | NUR ---
PATIENT ATE DINNER WITHOUT COMPLICATIONS. DENIES SOB, DIFFICULTY BREATHING OR PAIN. DRESSING C/D/I/P. SAFETY, SKIN, ASPIRATION PRECAUTIONS IN PLACE AND CARE WILL BE ENDORSED TO RN FOR KEVIN
--- NOTE | 2018-08-16 19:20 | NUR ---
RN M/S NOTE PATIENT IS AOX3, SPEECH CLEAR, ON ROOM AIR, NO S/SX OF CARDIAC OR RESPIRATORY DISTRESS, DENIES PAIN, AMBULATORY, RIGHT WRIST #20G PATENT FLUSHING WELL, SKIN KEPT CLEAN AND DRY, SAFETY MAINTAINED AT ALL TIMES, BED IN LOW LOCKED POSITION, CALL LIGHT WITHIN REACH, WILL CONTINUE TO MONITOR FOR ANY CHANGES IN CONDITION.
[2018-08-16 20:00] VITALS: BP 101/53
[2018-08-16] MEDS: HEPARIN SODIUM, PORCINE 5000 UNITS/1 ML VIAL SQ SCH (21:35)
[2018-08-16] MEDS: PIPERACILLIN /TAZOBACTAM 2.25 G in IV D5W 50 ML IV SCH (21:36)
[2018-08-17 04:00] VITALS: BP 100/52
[2018-08-17] MEDS: PIPERACILLIN /TAZOBACTAM 2.25 G in IV D5W 50 ML IV SCH ×3 (04:47→20:05)
[2018-08-17 07:24] LABS: BASOPHILS # (AUTO) 0.1 /CMM (0.0-0.2); BASOPHILS % (AUTO) 0.6 % (0.0-2.0); EOSINOPHILS % (AUTO) 1.3 % (0.0-6.0); HEMATOCRIT 27 % (39-51); HEMOGLOBIN 9.1 g/dL (13.5-17.5); LYMPHOCYTES # (AUTO) 1.6 /CMM (0.8-4.8); MEAN CORPUSCULAR HGB CONC 34 g/dl (31.0-36.0); MEAN CORPUSCULAR VOLUME 90 fL (80-96); MONOCYTES # (AUTO) 1.8 /CMM (0.1-1.30); MONOCYTES % (AUTO) 13.2 % (2.0-12.0); NEUTROPHILS # (AUTO) 9.9 /CMM (1.8-8.9); NEUTROPHILS % (AUTO) 72.9 % (43.0-81.0); PLATELET COUNT (AUTO) 206 /CMM (150-450); RED BLOOD CELL COUNT(AUTO) 3.03 MIL/uL (4.5-6.0); WHITE BLOOD COUNT (AUTO) 13.6 K/uL (4.3-11.0)
--- NOTE | 2018-08-17 07:30 | NUR ---
RN MS OPENING NOTES RECEIVED REPORT FROM DATA ENGINEER RN. PT IS RESTING IN BED. NO SIGNS OF SOB OR PAIN NOTED AT PRESENT TIME. PT HAS A ROGER SHUNT ACCORDING TO DATA ENGINEER THAT IS NO LONGER WORKING. PT HAS LCW HD CATH. PT WILL BE HAVING DIALYSIS TODAY. PT IS KYRGYZ SPEAKING WITH SOME GREEK. WILL CONTINUE TO MONITOR.
[2018-08-17 07:35] LABS: CALCIUM, SERUM 8.3 mg/dL (8.5-10.1); MAGNESIUM 2.3 mg/dL (1.8-2.4); PHOSPHORUS 5.7 mg/dL (2.5-4.9); POTASSIUM 3.8 mmol/L (3.5-5.1)
[2018-08-17 07:45] LABS: THYROID STIMULATING HORMONE 0.728 uIU/mL (0.358-3.74)
--- NOTE | 2018-08-17 07:48 | NUR ---
RN CRITICAL LAB JUSTINA FROM LAB CALLED AND GAVE A CRITICAL LAB VALUE OF DIRECTOR RECREATION 7.95. MD NAOMI PELAYO WAS MADE AWARE AT 0750. PT WILL BE GETTING DIALYSIS TODAY.
[2018-08-17 08:00] VITALS: BP 99/49
[2018-08-17] MEDS: PANTOPRAZOLE 40 MG TABLET.DR PO SCH (08:26)
[2018-08-17] MEDS: HEPARIN SODIUM, PORCINE 5000 UNITS/1 ML VIAL SQ SCH ×2 (08:28→20:20)
[2018-08-17] MEDS ORDERED: EPOETIN ALFA (10,000 UNIT) 10,000 UNIT/ML VIAL IV ONE (08:30)
[2018-08-17 12:00] VITALS: BP 99/49
--- NOTE | 2018-08-17 13:00 | NUR ---
RN MS NOTES WOUND DEBRIDEMENT DONE AT BEDSIDE OF BILATERAL FEET BY MD. MINIMAL BLEEDING AND WOUND CULTURE TAKEN OF RIGHT FOOT. WILL MONITOR FOR SIGNS OF BLEEDING.
[2018-08-17 16:00] VITALS: BP 104/56
[2018-08-17] MEDS: LACTOBACILLUS RHAMNOSUS GG 1 EACH CAP.SPRINK PO SCH (16:57)
--- NOTE | 2018-08-17 19:08 | NUR ---
RN CLOSING NOTES GAVE REPORT TO PRODUCE SERVICE TEAM MEMBER RN. PT IS RESTING IN BED. NO SIGNS OF SOB OR PAIN NOTED AT PRESENT TIME. PT HAS A ROGER SHUNT ACCORDING TO PRODUCE SERVICE TEAM MEMBER THAT IS NO LONGER WORKING. PT HAS LCW HD CATH. PT IS RECEIVING DIALYSIS CURRENTLY. PT IS EAST TIM[place] SPEAKING WITH SOME BULGARIAN. WILL ENDORSE CONTINUITY OF CARE TO PRODUCE SERVICE TEAM MEMBER RN.
--- NOTE | 2018-08-17 19:44 | NUR ---
MS RN NOTES RECEIVED PT ON BED. ON ROOM AIR NO RESPIRATORY DISTRESS NOTED. PT SLEEPING, ON DIALYSIS HD NURSE AT BEDSIDE. IV ACCESS ON RIGHT WRIST G20 SL. HD ACCESS ON LCW. HEAD OF BED ELEVATED. SIDE RAILS UP. CALL LIGHT WITHIN REACH. BED ALARM ON. WILL CONTINUE TO MONITOR PT CLOSELY.
[2018-08-17 20:00] VITALS: BP 94/52
--- NOTE | 2018-08-17 20:21 | NUR ---
MS RN NOTES PT REFUSED HEPARIN SUBQ, EXPLAINED BENEFITS AND RISK OF HEPARIN, PT S/P DEBRIDEMENT. PT REFUSED.
[2018-08-17 20:25] VITALS: BP 94/52
--- NOTE | 2018-08-17 20:50 | NUR ---
MS RN NOTES PER PHARMACY, OKAY TO GIVE VANCOMYCIN POST HD
[2018-08-17] MEDS: VANCOMYCIN 500 MG in IV D5W 100 ML IV PRN (21:24)
[2018-08-18 04:00] VITALS: BP 107/50
[2018-08-18] MEDS: PIPERACILLIN /TAZOBACTAM 2.25 G in IV D5W 50 ML IV SCH ×3 (04:14→21:40)
[2018-08-18 05:24] VITALS: BP 107/50
[2018-08-18 07:01] LABS: BASOPHILS # (AUTO) 0.1 /CMM (0.0-0.2); BASOPHILS % (AUTO) 0.8 % (0.0-2.0); EOSINOPHILS % (AUTO) 1.6 % (0.0-6.0); HEMATOCRIT 27 % (39-51); HEMOGLOBIN 9.1 g/dL (13.5-17.5); LYMPHOCYTES # (AUTO) 1.3 /CMM (0.8-4.8); LYMPHOCYTES % (AUTO) 11.6 % (20.0-44.0); MEAN CORPUSCULAR HGB CONC 34 g/dl (31.0-36.0); MEAN CORPUSCULAR VOLUME 90 fL (80-96); MONOCYTES # (AUTO) 1.6 /CMM (0.1-1.30); MONOCYTES % (AUTO) 14.9 % (2.0-12.0); NEUTROPHILS # (AUTO) 7.8 /CMM (1.8-8.9); NEUTROPHILS % (AUTO) 71.1 % (43.0-81.0); PLATELET COUNT (AUTO) 210 /CMM (150-450); RED BLOOD CELL COUNT(AUTO) 2.99 MIL/uL (4.5-6.0)
[2018-08-18 07:12] LABS: CALCIUM, SERUM 8.2 mg/dL (8.5-10.1); CREATININE 6.4 mg/dL (0.6-1.3); MAGNESIUM 2.3 mg/dL (1.8-2.4); PHOSPHORUS 3.6 mg/dL (2.5-4.9); POTASSIUM 4.2 mmol/L (3.5-5.1)
[2018-08-18 07:27] LABS: FERRITIN 900 ng/mL (8-388)
--- NOTE | 2018-08-18 07:27 | NUR ---
MS RN NOTES NO ACUTE CHANGES NOTED DURING THE SHIFT. PROVIDED COMFORT AND SAFETY. WILL ENDORSE TO THE AM NURSE FOR CONTINUITY OF CARE.
[2018-08-18 07:40] LABS: IRON, SERUM 15 ug/dl (50-175); TOTAL IRON BINDING CAPACITY 69 ug/dl (250-450)
[2018-08-18 08:00] VITALS: BP 85/45
--- NOTE | 2018-08-18 08:30 | NUR ---
RN INITIAL NOTES RECEIVED PT RESTING IN BED, EASILY AROUSABLE. NO INDICATION OF ANY DISTRESS AND DISCOMFORT. LEONARD FOOT DRESSING INTACT. SAFETY ENSURED, WILL CONTINUE TO MONITOR.
[2018-08-18] MEDS: PANTOPRAZOLE 40 MG TABLET.DR PO SCH (09:19)
[2018-08-18] MEDS: LACTOBACILLUS RHAMNOSUS GG 1 EACH CAP.SPRINK PO SCH ×2 (09:19→17:24)
[2018-08-18] MEDS: HEPARIN SODIUM, PORCINE 5000 UNITS/1 ML VIAL SQ SCH ×2 (09:21→21:42)
--- NOTE | 2018-08-18 09:57 | NUR ---
WOUND CARE CONSULT WOUND CARE RECEIVED CONSULT FOR RODAS. WOUND CARE WILL DEFER CONSULT AND TREATMENT PLANS TO DPM DR HOPKINS WHO IS CURRENTLY FOLLOWING THIS PATIENT. PATIENT WITH CURTIS AT 18, WILL SEE PRN.
[2018-08-18 16:00] VITALS: BP 104/63
[2018-08-18] MEDS: SEVELAMER CARBONATE 800 MG TABLET PO SCH (17:24)
--- NOTE | 2018-08-18 18:19 | NUR ---
CLOSING NOTES PT AWAKE AND INDEPENDENT WITH BED MOBILITY. NO SIGNIFICANT CHANGE, NO C/O PAIN. DRESSING CLEAN AND INTACT. ALL DUE MEDS GIVEN. WILL ENDORSE FOR CONITNUITY OF CARE IN STABLE CONDITION
--- NOTE | 2018-08-18 19:15 | NUR ---
RN M/S NOTE PATIENT IS AOX3, ALERT, ON ROOM AIR, DENIES ANY RESPIRATORY OR CARDIAC DISTRESS,RIGHT WRIST #20G IV, PATENT FLUSHING WELL, SKIN KEPT CLEAN AND DRY, SAFETY MAINTAINED AT ALL TIMES, BED IN LOW LOCKED POSITION, CALL LIGHT WITHIN REACH, WILL CONTINUE TO MONITOR FOR ANY CHANGES IN CONDITION.
[2018-08-18 20:00] VITALS: BP 108/67
[2018-08-19 04:00] VITALS: BP 110/58
[2018-08-19] MEDS: PIPERACILLIN /TAZOBACTAM 2.25 G in IV D5W 50 ML IV SCH ×2 (05:43→12:02)
[2018-08-19 07:54] LABS: BASOPHILS # (AUTO) 0.2 /CMM (0.0-0.2); BASOPHILS % (AUTO) 1.8 % (0.0-2.0); EOSINOPHILS % (AUTO) 5.2 % (0.0-6.0); HEMATOCRIT 29 % (39-51); HEMOGLOBIN 9.6 g/dL (13.5-17.5); LYMPHOCYTES # (AUTO) 2.1 /CMM (0.8-4.8); LYMPHOCYTES % (AUTO) 20.6 % (20.0-44.0); MEAN CORPUSCULAR HGB CONC 33 g/dl (31.0-36.0); MEAN CORPUSCULAR VOLUME 91 fL (80-96); MONOCYTES # (AUTO) 1.5 /CMM (0.1-1.30); MONOCYTES % (AUTO) 14.3 % (2.0-12.0); NEUTROPHILS # (AUTO) 5.9 /CMM (1.8-8.9); NEUTROPHILS % (AUTO) 58.1 % (43.0-81.0); PLATELET COUNT (AUTO) 254 /CMM (150-450); WHITE BLOOD COUNT (AUTO) 10.2 K/uL (4.3-11.0)
[2018-08-19 08:00] VITALS: BP 119/57
--- NOTE | 2018-08-19 08:00 | NUR ---
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 IS ON A RENAL DIET WITH A EMORY 22G THAT IS RUNNING IV FLUIDS AT 5ML/H TKO, NO S/S OF INFECTION. BOTH FEET WITH DRESSING INTACT NO ACTIVE BLEEDING, INSTRUCTED PATIENT IS NWB RLE, AND PATIENT UNDERSTOOD. POC DISCUSSED WITH PATIENT, CALL LIGHT WITHIN REACH, SAFETY MEASURES DISCUSSED, NO COMPLAINT OF PAIN AT THIS TIME, WILL CONTINUE TO MONITOR.
[2018-08-19 08:20] LABS: ALBUMIN 2.2 g/dL (3.4-5.0); BILIRUBIN,TOTAL 1.2 mg/dL (0.2-1.0); CALCIUM, SERUM 8.6 mg/dL (8.5-10.1); CREATININE 7.9 mg/dL (0.6-1.3); MAGNESIUM 2.5 mg/dL (1.8-2.4); PHOSPHORUS 3.5 mg/dL (2.5-4.9); POTASSIUM 4.5 mmol/L (3.5-5.1); TOTAL PROTEIN, SERUM 7.3 g/dL (6.4-8.2)
[2018-08-19] MEDS ORDERED: CALCITRIOL 0.25 MCG CAPSULE PO SCH (09:00)
[2018-08-19] MEDS: LACTOBACILLUS RHAMNOSUS GG 1 EACH CAP.SPRINK PO SCH ×2 (09:06→16:48)
[2018-08-19] MEDS: SEVELAMER CARBONATE 800 MG TABLET PO SCH ×3 (09:06→17:37)
[2018-08-19] MEDS: HEPARIN SODIUM, PORCINE 5000 UNITS/1 ML VIAL SQ SCH (09:07)
[2018-08-19] MEDS: PANTOPRAZOLE 40 MG TABLET.DR PO SCH (09:13)
--- NOTE | 2018-08-19 12:00 | NUR ---
MS RN NOTE HAVING LUNCH , ALL NEEDS ATTENDED ,NOT IN DISTRESS
--- NOTE | 2018-08-19 13:16 | NUR ---
MS RN NOTE DR RODRIGUEZ DPM AT BEDSIDE, SEEN AND EXAMINE BOTH FEET WOUND , STATED CONT TX ORDERED, WILL F\U
[2018-08-19] MEDS ORDERED: CEFA1PIG IV (14:27)
--- NOTE | 2018-08-19 15:00 | NUR ---
MS RN NOTE HD STARTED ORDERED
[2018-08-19 16:00] VITALS: BP 139/76
--- NOTE | 2018-08-19 17:26 | NUR ---
MS RN NOTE HD COMPLETED 2L OUT BP 118/57 HR 84
[2018-08-19] MEDS: VANCOMYCIN 500 MG in IV D5W 100 ML IV PRN (17:27)
--- NOTE | 2018-08-19 18:16 | NUR ---
MS RN NOTE SPOKE WITH CASE MANAGE ABOUT ANCEF ATB IV WITH HD , STATED THAT WILL BE ARRANGED
--- NOTE | 2018-08-19 18:38 | NUR ---
MS/RN NOTES DISCHARGE INSTRUCTIONS GIVEN AND UNDERSTOOD THROUGH SIENE MAKER, INSTRUCTED TO FOLLOW UP WITH POWDER MONKEY, PCP, PODIATRY, TOLD TO MONITOR WOUND AND S/S OF INFECTIONS. REMOVED HEP LOCK, BELONGINGS CHECKED, REFUSED TO TAKE PICTURES OF THE WOUNDS ON BOTH LEGS, "PAINFUL" DRESSING HAS BEEN CHANGED TWICE TODAY. PRESCRITPION GIVEN AND INSTRUCTED THAT ANTIBIOTICS WILL GIVEN BY DIALYSIS NURSE FRONT OFFICE SUPERVISOR IS AWARE, HEP LOCK SITE IS W/O S/S OF INFECTION, NO BLEEDING, OR PAIN.
--- NOTE | 2018-08-19 19:35 | NUR ---
RN NOTES PT WAS D/TAMARA ACCOMPANIED BY SISTER IN STABLE CONDITION. D/C INSTRUCTION GIVEN BY AM RN, PT VERBALIZED UNDERSTANDING. HEPLOCK WAS D/TAMARA BY AM RN, NO S/SX OF BLEEDING/INFECTION NOTED. SAFETY MEASURES OBSERVED AT ALL TIMES. PT WAS ASSISTED TO MAIN LOBBY BY RICHARD.
== END 2018-08-19 22:46 | disposition home or self-care (01) | DRG 380 ==
LOC: ER 12:32 → TELE1 16:06 → MEDSG1 17:15
PROVIDERS: ADMIT Student in an Organized Health Care Education/Training Program; ATTEND Student in an Organized Health Care Education/Training Program
PROC: 0JBQ0ZZ Excision of Right Foot Subcutaneous Tissue and Fascia, Open Approach (ICD-10-PCS; principal; 2018-08-17)
PROC: 5A1D70Z Performance of Urinary Filtration, Intermittent, Less than 6 Hours Per Day (ICD-10-PCS; principal; 2018-08-17)
PROC: 5A1D70Z Performance of Urinary Filtration, Intermittent, Less than 6 Hours Per Day (ICD-10-PCS; 2018-08-19)
DX: E11.621 Type 2 diabetes mellitus with foot ulcer (principal); L97.518 Non-pressure chronic ulcer of other part of right foot with other specified severity; E11.22 Type 2 diabetes mellitus with diabetic chronic kidney disease; E11.42 Type 2 diabetes mellitus with diabetic polyneuropathy; I12.0 Hypertensive chronic kidney disease with stage 5 chronic kidney disease or end stage renal disease; I48.91 Unspecified atrial fibrillation; L03.116 Cellulitis of left lower limb; T25.221A Burn of second degree of right foot, initial encounter; L03.115 Cellulitis of right lower limb; E44.1 Mild protein-calorie malnutrition; E87.1 Hypo-osmolality and hyponatremia; N18.6 End stage renal disease; Z99.2 Dependence on renal dialysis; K21.9 Gastro-esophageal reflux disease without esophagitis; E78.5 Hyperlipidemia, unspecified; T25.222A Burn of second degree of left foot, initial encounter; X12.XXXA Contact with other hot fluids, initial encounter; Y93.89 Activity, other specified; Y92.009 Unspecified place in unspecified non-institutional (private) residence as the place of occurrence of the external cause; D63.1 Anemia in chronic kidney disease; N25.81 Secondary hyperparathyroidism of renal origin; Z59.0 Homelessness; Z79.4 Long term (current) use of insulin; E88.09 Other disorders of plasma-protein metabolism, not elsewhere classified; Z68.22 Body mass index [BMI] 22.0-22.9, adult; N40.0 Benign prostatic hyperplasia without lower urinary tract symptoms
CPT/HCPCS: 36415; 71045-TC; 73630-TC; 80048-TC; 80053-TC; 80061-TC; 80076-TC; 80202-TC; 82728-TC; 83540-TC; 83605-TC; 83735-TC; 84100-TC; 84443-TC; 84484-TC; 85025-TC; 85730-TC; 87040-TC; 87070-TC; 87081-TC; 87340; 90935-TC; A6402; A6403; G0378; J0885; J1644; J2270; J2405; J2543; J3370; J7050; J7060

== ENCOUNTER 2018-10-05 09:10 | Emergency (ER) | payer MEDICAID ==
[~2018-10-05] VITALS: Ht 160 cm; Wt 62.6 kg
[2018-10-05 09:10] VITALS: BP 147/88
[~2018-10-05 09:10] MED LIST changes: +CEFA1PIG IV; -INSU100V7 SQ
--- NOTE | 2018-10-05 09:58 | NUR ---
Jose De Jesus Flaherty DPM callled and will call us back.
[2018-10-05 10:08] LABS: BASOPHILS # (AUTO) 0.1 /CMM (0.0-0.2); BASOPHILS % (AUTO) 1.7 % (0.0-2.0); EOSINOPHILS % (AUTO) 8.3 % (0.0-6.0); HEMATOCRIT 34 % (39-51); HEMOGLOBIN 10.9 g/dL (13.5-17.5); LYMPHOCYTES # (AUTO) 2.3 /CMM (0.8-4.8); MEAN CORPUSCULAR HGB CONC 32 g/dl (31.0-36.0); MEAN CORPUSCULAR VOLUME 89 fL (80-96); MONOCYTES # (AUTO) 0.8 /CMM (0.1-1.30); MONOCYTES % (AUTO) 11.9 % (2.0-12.0); NEUTROPHILS % (AUTO) 44.1 % (43.0-81.0); PLATELET COUNT (AUTO) 253 /CMM (150-450); RED BLOOD CELL COUNT(AUTO) 3.78 MIL/uL (4.5-6.0); WHITE BLOOD COUNT (AUTO) 6.8 K/uL (4.3-11.0)
[2018-10-05 10:13] LABS: CALCIUM, SERUM 8.2 mg/dL (8.5-10.1); CREATININE 7.2 mg/dL (0.6-1.3); POTASSIUM 4.3 mmol/L (3.5-5.1)
--- NOTE | 2018-10-05 11:20 | NUR ---
IV removed. Catheter intact and site benign. Pressure and 4x4 applied to site. No bleeding noted.
--- NOTE | 2018-10-05 11:25 | NUR ---
PT PROVIDED W/ WOUND CARE. WAS PROVIDED W/ LAB RESULTS AND ADVISED TO GO TO DIALYSIS TODAY. VERBALIZED UNDERSTANDING. DISCHARGE HOME IN STABLE CONDITION.
== END 2018-10-05 11:52 | disposition home or self-care (01) ==
LOC: ER 09:12
DX: I12.0 Hypertensive chronic kidney disease with stage 5 chronic kidney disease or end stage renal disease (principal); E11.22 Type 2 diabetes mellitus with diabetic chronic kidney disease; N18.6 End stage renal disease; E11.621 Type 2 diabetes mellitus with foot ulcer; Z99.2 Dependence on renal dialysis; Z98.890 Other specified postprocedural states; Z59.0 Homelessness; Z48.00 Encounter for change or removal of nonsurgical wound dressing
CPT/HCPCS: 36415; 80048; 85025; 85730; 87040 ×2; 99283; A6403

== ENCOUNTER 2019-08-29 12:03 | Inpatient (IN) | payer MEDICAID ==
[~2019-08-29] VITALS: Ht 157.5 cm; Wt 55.3 kg
--- NOTE | 2019-08-29 12:15 | NUR ---
PT BIB FAMILY C/O DIARRHEA FOR 8 DAYS AND GEN WEAKNESS, PT IS AAOX2, NOT IN RESPIRATORY DISTRESS, HOOKED TO LIBRARY SCIENCE INSTRUCTOR, KEPT RESTED AND COMFORTABLE, WILL CONTINUE TO MONITOR.
--- NOTE | 2019-08-29 12:25 | NUR ---
SEEN AND EXAMINED BY .
[2019-08-29] MEDS ORDERED: IV NS 0.9% 250 ML IV ONE (12:30)
--- NOTE | 2019-08-29 12:35 | NUR ---
IV LINE ESTABLISHED BLOOD DRAWN AND SENT TO LAB.
--- NOTE | 2019-08-29 12:50 | NUR ---
WASTEWATER PLANT OPERATOR AT BEDSIDE FOR XRAY.
[2019-08-29 12:52] LABS: BASOPHILS # (AUTO) 0.1 /CMM (0.0-0.2); BASOPHILS % (AUTO) 1.5 % (0.0-2.0); EOSINOPHILS % (AUTO) 0.2 % (0.0-6.0); HEMATOCRIT 33 % (39-51); HEMOGLOBIN 10.4 g/dL (13.5-17.5); LYMPHOCYTES # (AUTO) 1.5 /CMM (0.8-4.8); MEAN CORPUSCULAR HGB CONC 32 g/dl (31.0-36.0); MEAN CORPUSCULAR VOLUME 90 fL (80-96); MONOCYTES # (AUTO) 0.5 /CMM (0.1-1.30); MONOCYTES % (AUTO) 9.4 % (2.0-12.0); NEUTROPHILS # (AUTO) 2.9 /CMM (1.8-8.9); NEUTROPHILS % (AUTO) 58.9 % (43.0-81.0); PLATELET COUNT (AUTO) 98 /CMM (150-450); RED BLOOD CELL COUNT(AUTO) 3.59 MIL/uL (4.5-6.0); WHITE BLOOD COUNT (AUTO) 4.9 K/uL (4.3-11.0)
[2019-08-29 13:01] LABS: CALCIUM, SERUM 7.5 mg/dL (8.5-10.1); CREATININE 7.2 mg/dL (0.6-1.3); POTASSIUM 3.7 mmol/L (3.5-5.1)
[2019-08-29 13:07] LABS: ALBUMIN 2.3 g/dL (3.4-5.0); BILIRUBIN,DIRECT 0.3 mg/dL (0.0-0.2); BILIRUBIN,TOTAL 0.5 mg/dL (0.2-1.0); TOTAL PROTEIN, SERUM 6.8 g/dL (6.4-8.2)
--- NOTE | 2019-08-29 13:16 | NUR ---
CALLED [facility], PAGED ARELY
[2019-08-29 13:26] LABS: BAND % (MANUAL) 4 % (0.0-5.0); LYMPHOCYTES % (MANUAL) 24 % (16-48); MONOCYTES % (MANUAL) 5 % (0-11.0); NEUTROPHILS % (MANUAL) 67 (42-76)
[2019-08-29] MEDS ORDERED: AZITHROMYCIN 500 MG in IV D5W 250 ML IV ONE (13:30)
[2019-08-29] MEDS ORDERED: IV NS 0.9% 1,000 ML BAG IV ONE (14:30)
[2019-08-29] MEDS ORDERED: HYDROCODONE/APAP 5/325MG TABLET PO PRN (15:30)
[2019-08-29] MEDS ORDERED: MAGNESIUM HYDROXIDE 30 ML UDC PO PRN (15:30)
[2019-08-29] MEDS ORDERED: ONDANSETRON HCL/PF 4 MG/2 ML VIAL IVP PRN (15:30)
[2019-08-29] MEDS ORDERED: ZOLPIDEM TARTRATE 5 MG TABLET PO PRN (15:30)
--- NOTE | 2019-08-29 15:30 | NUR ---
REPORT GIVEN TO RICHARD ZENDEJAS FOR KEVIN.
[2019-08-29 16:00] VITALS: BP 85/52
[2019-08-29] MEDS: SEVELAMER CARBONATE 800 MG TABLET PO SCH (17:54)
--- NOTE | 2019-08-29 19:29 | NUR ---
SPECIAL EDUCATION TEACHER NOTES PATIENT IN BED AWAKE , GHANAIAN SPEAKER, IV SITE PATENT, HAS A UPPER LEFT CHEST DIALYSIS LUMEN. NO SOB OR DISCOMFORT NOTED AT THIS TIME. REPORT GIVEN TO CAN STERILIZER NURSE.
--- NOTE | 2019-08-29 19:45 | NUR ---
FRUIT BUYER OPENING NOTES RECEIVED PATIENT FROM MORNING SHIFT, ALERT AND ORIENTED X 3. VERBALLY RESPONSIVE HEBREW SPEAKING, ABLE TO FOLLOW DIRECTIONS. BREATHING REGULAR AND UNLABORED ON OXYGEN AT 3L/MIN VIA NASAL CANNULA. RIGHT FOREARM G18 IV LINE INTACT AND PATENT, FLUSHING WELL WITH NO BLEEDING OR S/S OF INFILTRATION NOTED. ON CARDIAC MONITORING WITH NSR AT 78bpm. NO COMPLAINTS OF PAIN/DISCOMFORT REPORTED AT THIS TIME. BED LOW AND LOCKED ON SEMI FOWLERS POSITION. CALL LIGHT IN REACH. WILL CONTINUE TO MONITOR.
[2019-08-29 20:00] VITALS: BP 94/57
[2019-08-29] MEDS: PIPERACILLIN /TAZOBACTAM 2.25 G in IV D5W 50 ML IV SCH (20:29)
--- NOTE | 2019-08-29 21:30 | NUR ---
INFLATED BALL MOLDER NOTES ZOSYN IV STARTED ORDERED, NO DRUG ADVERSE REACTIONS NOTED. WILL CONTINUE TO MONITOR.
[2019-08-30] VITALS: BP 96/79
[2019-08-30] MEDS: PIPERACILLIN /TAZOBACTAM 2.25 G in IV D5W 50 ML IV SCH ×4 (02:01→19:58)
[2019-08-30 04:00] VITALS: BP 90/76
--- NOTE | 2019-08-30 06:25 | NUR ---
CASINO GAMING INSPECTOR CLOSING NOTES PATIENT IN BED ALERT AND ORIENTED X 3. AFEBRILE WITH NO S/S OF DISTRESS OBSERVED OXYGEN AT 3L/MIN VIA NASAL CANNULA. RIGHT FOREARM G18 IV LINE PATENT AND FLUSHING WELL. MAINTAINED ON CARDIAC MONITORING WITH NSR AT 77bpm. NO COMPLAINTS OF PAIN/DISCOMFORT REPORTED THE WHOLE SHIFT. BED LOW AND LOCKED ON SEMI FOWLERS POSITION. CALL LIGHT IN REACH. WILL ENDORSE TO MORNING SHIFT FOR KEVIN.
[2019-08-30 06:35] LABS: BASOPHILS % (AUTO) 0.5 % (0.0-2.0); EOSINOPHILS % (AUTO) 0.8 % (0.0-6.0); HEMATOCRIT 34 % (39-51); LYMPHOCYTES # (AUTO) 1.7 /CMM (0.8-4.8); LYMPHOCYTES % (AUTO) 32.1 % (20.0-44.0); MEAN CORPUSCULAR HGB CONC 32 g/dl (31.0-36.0); MEAN CORPUSCULAR VOLUME 89 fL (80-96); MONOCYTES # (AUTO) 0.3 /CMM (0.1-1.30); MONOCYTES % (AUTO) 6.1 % (2.0-12.0); NEUTROPHILS # (AUTO) 3.2 /CMM (1.8-8.9); NEUTROPHILS % (AUTO) 60.5 % (43.0-81.0); PLATELET COUNT (AUTO) 119 /CMM (150-450); RED BLOOD CELL COUNT(AUTO) 3.86 MIL/uL (4.5-6.0); WHITE BLOOD COUNT (AUTO) 5.3 K/uL (4.3-11.0)
[2019-08-30 07:10] LABS: CALCIUM, SERUM 7.7 mg/dL (8.5-10.1); MAGNESIUM 2.3 mg/dL (1.8-2.4); PHOSPHORUS 3.7 mg/dL (2.5-4.9); POTASSIUM 3.9 mmol/L (3.5-5.1)
[2019-08-30 07:17] LABS: CREATININE 8.2 mg/dL (0.6-1.3)
[2019-08-30 08:00] VITALS: BP 97/54
[2019-08-30] MEDS: SEVELAMER CARBONATE 800 MG TABLET PO SCH ×3 (08:00→18:00)
[2019-08-30] MEDS: CALCITRIOL 0.25 MCG CAPSULE PO SCH (09:00)
--- NOTE | 2019-08-30 10:22 | NUR ---
WOUND CARE CONSULT: REVIEWED CHART, NURSING DOCUMENTATION AND ADMISSION PHOTOS WHICH SHOW UNEVEN PIGMENTATION OF SKIN ON FEET AND RT PLANTAR FOOT ESCHAR, PRESENT ON ADMISSION. DR BAEZ NOTIFIED OF DPM CONSULT REQUEST. RECOMMENDATIONS MADE FOR SKIN PROTECTION AND DISCUSSED WITH NURSING STAFF. CURRENT CURTIS SCORE IS 15. MD IN AGREEMENT WITH PLAN OF CARE.
[2019-08-30] MEDS ORDERED: Z GUARD REMEDY 2 OZ OINT TP PRN (10:30)
[2019-08-30] MEDS: Z GUARD REMEDY 2 OZ OINT TP SCH (10:40)
--- NOTE | 2019-08-30 11:27 | NUR ---
PATIENT A&OX3. NO S/S OF PAIN. PATIENT I S SOB WITH TALKING AND EXCESSIVE MOVEMENT. AM MEDICATIONS GIVEN. DOPE DRY HOUSE OPERATOR TRIED TO CLEAN PATIENT AND PATIENT REFUSED. PATIENT IS BEING NONCOMPLIANT WITH CARE. BED IN LOWEST POSITION. CALL LIGHT IN REACH. WILL LET PATIENT CALM DOWN AND REASSESS.
[2019-08-30 12:00] VITALS: BP 90/54
--- NOTE | 2019-08-30 14:13 | NUR ---
PATIENT RECEIVING DIALYSIS.
[2019-08-30] MEDS: DOXYCYCLINE 100 MG in IV NS 0.9% 100 ML IV SCH (18:30)
--- NOTE | 2019-08-30 18:41 | NUR ---
PATIENT IN BED RESTING. BED IN LOWEST POSITION. CALL LIGHT IN REACH. WILL GIVE REPORT TO NIGHT NURSE.
--- NOTE | 2019-08-30 19:30 | NUR ---
COGNOS ANALYST NOTES RECEIVED ON BED A/O X3,SPEAK CHINESE,BREATHING REGULAR,NOT IN ANY FORM OF DISTRESS,WITH RIGHT FORE ARM SALINE LOCK FOR MEDS, LEFT UPPER CHEST PERMA CATH FOR HD TREATMENT,ISOLATION PRECAUTION FOR COVID-19 R/O,AWAITING FOR RESULT.DENIES DISCOMFORTS AT THE MOMENT,CALL LIGHT IN REACH,NEEDS ANTICIPATED.
[2019-08-30 20:00] VITALS: BP 104/70
[2019-08-30] MEDS: ACETAMINOPHEN 325 MG TABLET PO PRN (20:16)
--- NOTE | 2019-08-30 20:16 | NUR ---
FOOD CART ATTENDANT NOTES ORAL TEMP OF 102.3,TYLENOL 650MG PO GIVEN ORDERED.
[2019-08-31] VITALS (7 sets, daily range): BP systolic 94–117; BP diastolic 62–71
--- NOTE | 2019-08-31 | NUR ---
MONTESSORI TODDLER TEACHER NOTES ORAL TEMP THIS TIME 98.5,BP 94/62
--- NOTE | 2019-08-31 01:23 | NUR ---
RN NOTES RECEIVED A CALL FROM LAB C/O Sara MCCRACKEN RE COVID RESULT POSITIVE. PRIMARY RN ALANNAH MADE AWARE
[2019-08-31] MEDS: PIPERACILLIN /TAZOBACTAM 2.25 G in IV D5W 50 ML IV SCH ×4 (02:06→20:42)
--- NOTE | 2019-08-31 06:10 | NUR ---
MAINSTREAMING FACILITATOR NOTES SLEPT WITH INTERVALS,NEGATIVE [place],CALL LIGHT IN ,NEEDS ATTENDEDWILL ENDORSE TO DAY NURSE FOR KEVIN.
[2019-08-31 06:59] LABS: BASOPHILS % (AUTO) 0.6 % (0.0-2.0); EOSINOPHILS % (AUTO) 0.2 % (0.0-6.0); HEMATOCRIT 34 % (39-51); HEMOGLOBIN 11.2 g/dL (13.5-17.5); LYMPHOCYTES # (AUTO) 1.3 /CMM (0.8-4.8); LYMPHOCYTES % (AUTO) 22.9 % (20.0-44.0); MEAN CORPUSCULAR HGB CONC 33 g/dl (31.0-36.0); MEAN CORPUSCULAR VOLUME 89 fL (80-96); MONOCYTES # (AUTO) 0.4 /CMM (0.1-1.30); MONOCYTES % (AUTO) 6.2 % (2.0-12.0); NEUTROPHILS # (AUTO) 4.1 /CMM (1.8-8.9); NEUTROPHILS % (AUTO) 70.1 % (43.0-81.0); PLATELET COUNT (AUTO) 123 /CMM (150-450); RED BLOOD CELL COUNT(AUTO) 3.84 MIL/uL (4.5-6.0); WHITE BLOOD COUNT (AUTO) 5.8 K/uL (4.3-11.0)
--- NOTE | 2019-08-31 07:30 | NUR ---
RN NOTES RECEIVED PATIENT IN BED, AWAKE, ORIENTEDX3-4, ABLE TO MAKE NEEDS KNOWN. ON ROOM AIR, BREATHING UNLABORED. NO COMPLAINTS OF SOB OR PAIN AT THIS TIME. SINUS RHYTHM ON THE MONITOR WITH HR ON THE 70s. HD CATH ON THE LEFT UPPER CHEST WALL IN PLACE AND INTACT, IV ACCESS SUMIT THE RFA, IN PLACE AND FLUSHING WELL. PATIENT ENCOURAGE TO CALL FOR HELP AND ASSISTANCE, CALL LIGHT PLACED WITHIN REACH, SAFETY MEASURES OBSERVED AND MAINTAINED, WILL CONTINUE TO MONITOR PATIENT ACCORDINGLY
[2019-08-31 07:31] LABS: ALBUMIN 2.3 g/dL (3.4-5.0); BILIRUBIN,DIRECT 0.6 mg/dL (0.0-0.2); CALCIUM, SERUM 7.9 mg/dL (8.5-10.1); CREATININE 6.6 mg/dL (0.6-1.3); MAGNESIUM 2.1 mg/dL (1.8-2.4); PHOSPHORUS 3.4 mg/dL (2.5-4.9); POTASSIUM 3.9 mmol/L (3.5-5.1); TOTAL PROTEIN, SERUM 6.6 g/dL (6.4-8.2)
[2019-08-31] MEDS ORDERED: AMYLASE/LIPASE/PROTEASE 1 CAP CAPSULE.DR PO SCH (08:00)
--- NOTE | 2019-08-31 08:00 | NUR ---
RN NOTES PATIENT WITH LOW GRADE FECER, COOLING MEASURES INITIATED
[2019-08-31] MEDS: SEVELAMER CARBONATE 800 MG TABLET PO SCH ×3 (08:27→17:11)
[2019-08-31] MEDS: CALCITRIOL 0.25 MCG CAPSULE PO SCH (08:28)
[2019-08-31] MEDS: Z GUARD REMEDY 2 OZ OINT TP SCH (08:28)
[2019-08-31] MEDS: DOXYCYCLINE 100 MG in IV NS 0.9% 100 ML IV SCH ×2 (09:12→21:52)
[2019-08-31] MEDS ORDERED: HYDROXYCHLOROQUINE 200 MG TABLET PO ONE (12:00)
[2019-08-31] MEDS: LIPASE/PROTEASE/AMYLASE 1 EACH CAPSULE.DR PO SCH ×2 (12:53→17:11)
--- NOTE | 2019-08-31 12:53 | NUR ---
RN NOTE QRS 88 QTC 436. OK TO GIVE PLAQUENIL PER PROTOCOL.
--- NOTE | 2019-08-31 16:00 | NUR ---
RN NOTE Temp is 99.7F. Cooling measures initiated and tylenol given.
[2019-08-31] MEDS: ACETAMINOPHEN 325 MG TABLET PO PRN (16:45)
--- NOTE | 2019-08-31 18:15 | NUR ---
RN CLOSING NOTE Patient is resting in bed, A/O x4, showing no signs of acute distress or SOB, saturating 95% on RA. Tele monitor SR 86. Patient has no complaints of pain at this time. IV line in the RFA is clean and intact running TKO. Left upper chest perma-cath noted. Last HD was on 08/19. All patient needs met, all due medications given. Patient kept clean and dry throughout shift. Bed is in lowest position, side rails x2 in upright position, call light is within reach and patient is aware of how to call for assistance when needed. Will endorse to umbrella mender.
--- NOTE | 2019-08-31 22:50 | NUR ---
RN NOTE: Received report from Do for KEVIN.
--- NOTE | 2019-08-31 23:15 | NUR ---
RN NOTE GAVE REPORT TO RN WHO WILL CONTINUE CARE. PATIENT IN NO SIGN OF ANY DISTRESS. SATURATING AT 95% WITH NC AT 4L OF O2. NO CONCERNS FROM PATIENT AT THE MOMENT. RN WILL CONTINUE TO CARE FOR REST OF NIGHT
[2019-09-01] VITALS (7 sets, daily range): BP systolic 90–145; BP diastolic 49–95
[2019-09-01] MEDS: PIPERACILLIN /TAZOBACTAM 2.25 G in IV D5W 50 ML IV SCH ×4 (01:42→20:16)
--- NOTE | 2019-09-01 06:32 | NUR ---
RN CLOSING NOTES: Pt resting in bed. On isolation precautions for positive covid. On 4L/min NC tolerating well. No respiratory distress or SOB noted. No acute changes noted during shift. Safety measures in place. Will endorse to AM nurse for KEVIN. Addendum: 09/01/19 at 0636 by INOCENCIO CUEVAS RN On tele monitor showing SR.
[2019-09-01 06:46] LABS: BASOPHILS % (AUTO) 0.4 % (0.0-2.0); EOSINOPHILS % (AUTO) 0.5 % (0.0-6.0); HEMATOCRIT 35 % (39-51); HEMOGLOBIN 11.5 g/dL (13.5-17.5); LYMPHOCYTES # (AUTO) 1.4 /CMM (0.8-4.8); LYMPHOCYTES % (AUTO) 21.2 % (20.0-44.0); MEAN CORPUSCULAR HGB CONC 33 g/dl (31.0-36.0); MEAN CORPUSCULAR VOLUME 89 fL (80-96); MONOCYTES # (AUTO) 0.5 /CMM (0.1-1.30); NEUTROPHILS # (AUTO) 4.5 /CMM (1.8-8.9); NEUTROPHILS % (AUTO) 69.9 % (43.0-81.0); PLATELET COUNT (AUTO) 144 /CMM (150-450); RED BLOOD CELL COUNT(AUTO) 3.95 MIL/uL (4.5-6.0); WHITE BLOOD COUNT (AUTO) 6.4 K/uL (4.3-11.0)
[2019-09-01 07:15] LABS: CALCIUM, SERUM 8.1 mg/dL (8.5-10.1); MAGNESIUM 2.1 mg/dL (1.8-2.4); PHOSPHORUS 3.8 mg/dL (2.5-4.9); POTASSIUM 4.5 mmol/L (3.5-5.1)
[2019-09-01 07:20] LABS: CREATININE 8.3 mg/dL (0.6-1.3)
[2019-09-01 08:18] LABS: C-REACTIVE PROTEIN 24.6 mg/dL (0.0-0.9)
[2019-09-01] MEDS: Z GUARD REMEDY 2 OZ OINT TP SCH (09:51)
[2019-09-01] MEDS: HYDROXYCHLOROQUINE 200 MG TABLET PO SCH ×2 (09:57→16:31)
[2019-09-01] MEDS: CALCITRIOL 0.25 MCG CAPSULE PO SCH (09:57)
[2019-09-01] MEDS: LIPASE/PROTEASE/AMYLASE 1 EACH CAPSULE.DR PO SCH ×3 (09:58→16:34)
[2019-09-01] MEDS: SEVELAMER CARBONATE 800 MG TABLET PO SCH ×3 (09:58→16:34)
[2019-09-01] MEDS: DOXYCYCLINE 100 MG in IV NS 0.9% 100 ML IV SCH ×2 (11:10→21:39)
--- NOTE | 2019-09-01 14:41 | NUR ---
alert, oriented, and very appropriate, ambulatory , completed HD just now, 1.5liter out. vss. Meds scheduled at 1300 not given secondary to HD going on.
--- NOTE | 2019-09-01 16:59 | NUR ---
"isaac canales", he said. Wants to sleep after the dialysis, had temp at the beginning of shift, 1 00.6, orally, but subsided as the day progresses, denied pain, no diarrhea.
--- NOTE | 2019-09-01 23:00 | NUR ---
TELE/RN NOTES: RECEIVED PT REPORT FROM VANCE NURSE CINTHIA FOR KEVIN. PT. IS STABLE AND RESPONSIVE. NO SOB NOTED. NO S/S OF DISTRESS. NO C/O PAIN AT THIS TIME. TELE READING OF NSR. SAFETY MEASURES IN PLACE. WILL CONTINUE TO MONITOR.
[2019-09-02] VITALS: BP 111/49
[2019-09-02] MEDS: PIPERACILLIN /TAZOBACTAM 2.25 G in IV D5W 50 ML IV SCH ×4 (01:25→20:48)
[2019-09-02 04:00] VITALS: BP 120/63
--- NOTE | 2019-09-02 06:19 | NUR ---
TELE/RN CLOSING NOTES: PT. REMAINED A/OX3. VERBALLY RESPONSIVE AND ABLE TO MAKE NEEDS KNOWN. MONGOLIAN SPEAKING, ON ROOM AIR AND SATURATING WELL. NO S/S OF DISTRESS. NO C/O PAIN AT THIS TIME. SLEPT WELL THROUGH THE NIGHT. ALL DUE MEDS GIVEN ORDERED. ALL NURSING NEEDS MET AND PROVIDED. MAINTAINED PROPER ISOLATION PRECAUTIONS FOR COVID 19. IV SITE ON THE RIGHT FA #20G SL, INTACTA ND PATENT. LEFT UPPER CHEST PERMA-CATH IN PLACE. TELE READING OF NSR HR 81. SAFETY MEASURES KEPT IN PLACE. BED IN LOW LOCKED POSITION WITH SR UP X2. BED ALARM ON. CALL LIGHT WITHIN REACH. WILL ENDORSE TO DAY SHIFT FOR KEVIN.
[2019-09-02 07:01] LABS: BASOPHILS % (AUTO) 0.5 % (0.0-2.0); EOSINOPHILS % (AUTO) 0.3 % (0.0-6.0); HEMATOCRIT 34 % (39-51); HEMOGLOBIN 11.1 g/dL (13.5-17.5); LYMPHOCYTES # (AUTO) 1.6 /CMM (0.8-4.8); LYMPHOCYTES % (AUTO) 25.4 % (20.0-44.0); MEAN CORPUSCULAR HGB CONC 33 g/dl (31.0-36.0); MEAN CORPUSCULAR VOLUME 89 fL (80-96); MONOCYTES # (AUTO) 0.6 /CMM (0.1-1.30); NEUTROPHILS # (AUTO) 4.1 /CMM (1.8-8.9); NEUTROPHILS % (AUTO) 63.8 % (43.0-81.0); PLATELET COUNT (AUTO) 159 /CMM (150-450); RED BLOOD CELL COUNT(AUTO) 3.75 MIL/uL (4.5-6.0); WHITE BLOOD COUNT (AUTO) 6.4 K/uL (4.3-11.0)
[2019-09-02 07:33] LABS: CALCIUM, SERUM 8.1 mg/dL (8.5-10.1); CREATININE 7.4 mg/dL (0.6-1.3); MAGNESIUM 2.1 mg/dL (1.8-2.4); PHOSPHORUS 3.2 mg/dL (2.5-4.9); POTASSIUM 4.1 mmol/L (3.5-5.1)
--- NOTE | 2019-09-02 07:41 | NUR ---
CURING OVEN TENDER OPENING NOTES PATIENT IN BED RESTING COMFORTABLY. PATIENT IN NO ACUTE DISTRESS. NO SOB NOTED. PATIENT BREATHING IS EVEN AND UNLABORED. PATIENT ON CARDIAC MONITORING READING SINUS RHYTHM HR 76. LEFT UPPER CHEST PERMA CATH IN PLACE. PATIENT WITH NO FACIAL GRIMACING NOTED. PATIENT BED IS LOCKED AND IN LOWEST POSITION. BED ALARM IS ON. CALL LIGHT WITHIN REACH. WILL CONTINUE TO MONITOR.
[2019-09-02 08:00] VITALS: BP 133/72
[2019-09-02] MEDS: CALCITRIOL 0.25 MCG CAPSULE PO SCH (08:22)
[2019-09-02] MEDS: SEVELAMER CARBONATE 800 MG TABLET PO SCH ×3 (08:22→17:05)
[2019-09-02] MEDS: HYDROXYCHLOROQUINE 200 MG TABLET PO SCH ×2 (08:22→17:05)
[2019-09-02] MEDS: LIPASE/PROTEASE/AMYLASE 1 EACH CAPSULE.DR PO SCH ×3 (08:22→17:05)
[2019-09-02] MEDS: Z GUARD REMEDY 2 OZ OINT TP SCH (08:24)
[2019-09-02] MEDS: DOXYCYCLINE 100 MG in IV NS 0.9% 100 ML IV SCH (09:40)
[2019-09-02 12:00] VITALS: BP_SYST 118; BP_SYST 120; BP_DIAS 71; BP_DIAS 75
[2019-09-02 16:00] VITALS: BP 121/74
--- NOTE | 2019-09-02 18:20 | NUR ---
MOTOR VEHICLE REPRESENTATIVE CLOSING NOTES PATIENT IN BED RESTING COMFORTABLY. PATIENT IN NO ACUTE DISTRESS. NO SOB NOTED. PATIENT BREATHING IS EVEN AND UNLABORED. PATIENT ON CARDIAC MONITORING READING SINUS RHYTHM HR 85. LEFT UPPER CHEST PERMA CATH IN PLACE. PATIENT WITH NO FACIAL GRIMACING NOTED. WOUND CARE PROVIDED ORDERED. PATIENT KEPT CLEAN, DRY AND COMFORTABLE THROUGHOUT SHIFT. PATIENT BED IS LOCKED AND IN LOWEST POSITION. BED ALARM IS ON. CALL LIGHT WITHIN REACH. WILL ENDORSE CARE TO PM SHIFT FOR KEVIN.
--- NOTE | 2019-09-02 19:00 | NUR ---
RN OPENING NOTES Received patient awake on bed. On RA, no SOB/respiratory distress noted at this time. No s/sx of discomfort noted. On tele monitor with NSR noted. Kept on bed clean, dry and comfortable. Call light within easy reach. Will continue to monitor accordingly.
[2019-09-02 20:00] VITALS: BP 103/66
[2019-09-02] MEDS: DOXYCYCLINE HYCLATE (100 MG) 100 MG TABLET PO SCH (20:50)
[2019-09-03] VITALS (7 sets, daily range): BP systolic 96–162; BP diastolic 51–88
[2019-09-03] MEDS: PIPERACILLIN /TAZOBACTAM 2.25 G in IV D5W 50 ML IV SCH ×3 (02:11→13:01)
--- NOTE | 2019-09-03 06:16 | NUR ---
RN CLOSING NOTES Patient asleep, easily awaken. On RA, no SOB/respiratory distress noted. Afebrile the whole shift, no new unusualities noted. NSR on tele monitor. Due meds given as ordered, no ASE noted. All nursing needs attended. Kept on bed clean, dry and comfortable. On fall and aspiration precautions.
[2019-09-03 06:34] LABS: BASOPHILS % (AUTO) 0.5 % (0.0-2.0); EOSINOPHILS % (AUTO) 0.8 % (0.0-6.0); HEMATOCRIT 33 % (39-51); HEMOGLOBIN 11.1 g/dL (13.5-17.5); LYMPHOCYTES # (AUTO) 1.6 /CMM (0.8-4.8); MEAN CORPUSCULAR HGB CONC 34 g/dl (31.0-36.0); MEAN CORPUSCULAR VOLUME 88 fL (80-96); MONOCYTES # (AUTO) 0.8 /CMM (0.1-1.30); MONOCYTES % (AUTO) 11.5 % (2.0-12.0); NEUTROPHILS # (AUTO) 4.3 /CMM (1.8-8.9); NEUTROPHILS % (AUTO) 63.2 % (43.0-81.0); PLATELET COUNT (AUTO) 179 /CMM (150-450); RED BLOOD CELL COUNT(AUTO) 3.77 MIL/uL (4.5-6.0); WHITE BLOOD COUNT (AUTO) 6.8 K/uL (4.3-11.0)
[2019-09-03 06:48] LABS: CALCIUM, SERUM 8.4 mg/dL (8.5-10.1); MAGNESIUM 2.3 mg/dL (1.8-2.4); POTASSIUM 4.5 mmol/L (3.5-5.1)
[2019-09-03 06:50] LABS: CREATININE 8.8 mg/dL (0.6-1.3)
--- NOTE | 2019-09-03 08:05 | NUR ---
FLAME BURNER OPENING NOTES RECEIVED PT ON BED, A/OX3, PERUVIAN. RESPIRATION EVEN AND NON LABORED WITH NO ACUTE RESPIRATORY DISTRESS, ON O2 AT 2LPM VIA N/C, HOB ELEVATED. ABD SOFT AND NON DISTENDED WITH ACTIVE BOWEL SOUNDS, ANURIA ON DIALYSIS MWF. PT DENIES PAIN AND DISCOMFORT. SKIN WARM TO TOUCH AND DRY. TELE MONITOR SHOWS SR 82, IV SITE AT RIGHT FA #20 H/L, PATENT IN FLUSHING. LEFT UPPER CHEST WALL ESTEFANIA CATH SITE CLEAN AND DRY. BED IN LOW LOCKED POSITION, SR UP FOR SAFETY, ON CONTACT/DROPLET ISOLATION DUE TO + COVID19. PPE UTILIZED PROPERLY. WILL CONTINUE TO MONITOR CARE.
[2019-09-03] MEDS: SEVELAMER CARBONATE 800 MG TABLET PO SCH ×3 (08:09→18:02)
[2019-09-03] MEDS: HYDROXYCHLOROQUINE 200 MG TABLET PO SCH ×2 (08:09→18:02)
[2019-09-03] MEDS: LIPASE/PROTEASE/AMYLASE 1 EACH CAPSULE.DR PO SCH ×3 (08:09→18:02)
[2019-09-03] MEDS: DOXYCYCLINE HYCLATE (100 MG) 100 MG TABLET PO SCH (08:09)
[2019-09-03] MEDS: CALCITRIOL 0.25 MCG CAPSULE PO SCH (08:09)
[2019-09-03] MEDS: Z GUARD REMEDY 2 OZ OINT TP SCH (08:10)
--- NOTE | 2019-09-03 10:05 | NUR ---
CERTIFIED MASTER SAFECRACKER NOTES PT COMFORTABLY SLEEPING, O2 AT 2LPM NEEDED ONLY IF PT COMPLAIN OF SOB. SATING 95-97% ROOM AIR EVEN WITH C/O OF SOB IN MINIMAL EXERTION. REPOSITION WITH STRAIGHT BACK FOR COMFORT, WILL CONTINUE TO MONITOR CARE.
--- NOTE | 2019-09-03 15:05 | NUR ---
CORPORATE STAFF ACCOUNTANT NOTES PT STARTED ON DIALYSIS.
--- NOTE | 2019-09-03 17:06 | NUR ---
JANITORIAL ASSISTANT NOTES PT ASLEEP BUT EASILY AROUSABLE, PATIENT ON DIALYSIS. WILL CONTINUE TO MONITOR CARE
--- NOTE | 2019-09-03 18:56 | NUR ---
RAIL OPERATIONS CONTROLLER CLOSING NOTES PT AAOX2, CZECH SPEAKING. RESPIRATION EVEN AND NON LABORED WITH NO ACUTE RESPIRATORY DISTRESS, TOLERATING ROOM AIR SATING 95% WITH O2 PRN DUE TO EPISODES OF SOB. DENIES PAIN AND DISCOMFORT. SKIN WARM TO TOUCH AND DRY, NO NEW OPEN SKIN BREAKDOWN. ABD SOFT AND NON DISTENDED WITH ACTIVE BOWEL SOUNDS, BM X1 TODAY. IV SITE AT RIGHT UPPER MIDLINE H/L, LEFT UPPER CHEST WALL PERM-A-CATH DRESSING CLEAN. TELE MONITOR SHOWS SR. ON CONTACT/DROPLET ISOLATION DUE TO COVID-19 POSITIVE. BED IN LOW LOCKED POSITION, SR X2 UP FOR SAFETY. ENDORSED PT CARE TO NEXT SHIFT.
[2019-09-04] VITALS: BP 103/55
[2019-09-04 04:00] VITALS: BP 101/60
--- NOTE | 2019-09-04 06:48 | NUR ---
TELE/RN PATIENT IN BED WITH NO DISTRESS. PATIENT IS ON 2L OF 02 FOR COMFORT BUT DOES NOT COMPLAIN OF ANY SOB OR PAIN. ALL NEEDS MET WITH PATIENT. WILL ENDORSE PATIENT TO MORNING SHIFT NURSE FOR KEVIN.
[2019-09-04 07:04] LABS: BASOPHILS % (AUTO) 0.5 % (0.0-2.0); HEMATOCRIT 33 % (39-51); LYMPHOCYTES # (AUTO) 1.1 /CMM (0.8-4.8); LYMPHOCYTES % (AUTO) 14.8 % (20.0-44.0); MEAN CORPUSCULAR HGB CONC 34 g/dl (31.0-36.0); MEAN CORPUSCULAR VOLUME 88 fL (80-96); NEUTROPHILS # (AUTO) 5.3 /CMM (1.8-8.9); NEUTROPHILS % (AUTO) 70.7 % (43.0-81.0); PLATELET COUNT (AUTO) 196 /CMM (150-450); RED BLOOD CELL COUNT(AUTO) 3.72 MIL/uL (4.5-6.0); WHITE BLOOD COUNT (AUTO) 7.5 K/uL (4.3-11.0)
[2019-09-04 07:08] LABS: CALCIUM, SERUM 8.6 mg/dL (8.5-10.1); CREATININE 7.2 mg/dL (0.6-1.3); MAGNESIUM 2.2 mg/dL (1.8-2.4); PHOSPHORUS 3.4 mg/dL (2.5-4.9); POTASSIUM 3.8 mmol/L (3.5-5.1)
[2019-09-04 08:00] VITALS: BP_SYST 136; BP_SYST 97; BP_DIAS 61; BP_DIAS 77
[2019-09-04] MEDS: HYDROXYCHLOROQUINE 200 MG TABLET PO SCH ×2 (09:37→17:36)
[2019-09-04] MEDS: SEVELAMER CARBONATE 800 MG TABLET PO SCH ×3 (09:37→17:36)
[2019-09-04] MEDS: CALCITRIOL 0.25 MCG CAPSULE PO SCH (09:37)
[2019-09-04] MEDS: LIPASE/PROTEASE/AMYLASE 1 EACH CAPSULE.DR PO SCH ×3 (09:38→17:36)
[2019-09-04] MEDS: Z GUARD REMEDY 2 OZ OINT TP SCH (09:51)
[2019-09-04 12:00] VITALS: BP 116/64
--- NOTE | 2019-09-04 12:29 | NUR ---
RN OPENING NOTE RECEIVED PATIENT IN BED. NO ACUTE DISTRESS NOTED. A&OX3, AUSTRIAN SPEAKING. PT. ON 2L O2 VIA NC, SATURATING WELL AT 95%. PT. ON TELE MONITOR, SR NOTED WITH HR OF 78. PT. HAS EMORY MIDLINE IN PLACE, INTACT, PATENT, FLUSHED WELL. PT. SAFETY MAINTAINED. CALL LIGHT WITHIN REACH. WILL CONTINUE TO MONITOR
[2019-09-04 16:00] VITALS: BP_SYST 101; BP_DIAS 71; BP_DIAS 77
--- NOTE | 2019-09-04 18:37 | NUR ---
QUALITY ASSOCIATE NOTES Received Truck Jumper from Kendal avilez) at this time. Updated Belongings list. Truck Jumper with Patient at bedside.
--- NOTE | 2019-09-04 18:49 | NUR ---
RN CLOSING NOTE PATIENT IN BED. NO ACUTE DISTRESS NOTED. A&OX3, KYRGYZ SPEAKING. PT. ON 2L O2 VIA NC, NO ACUTE RESPIRATORY DISTRESS NOTED. PT. ON TELE MONITOR, SR NOTED WITH HR OF 89. PT. HAS EMORY MIDLINE IN PLACE, INTACT, PATENT, FLUSHED WELL. PT. SAFETY MAINTAINED. CALL LIGHT WITHIN REACH. WILL ENDORSE PLAN OF CARE TO ONCOMING SHIFT.
--- NOTE | 2019-09-04 19:50 | NUR ---
APPLIANCE REPAIR TECHNICIAN OPENING NOTE RECEIVED REPORT FROM ANDRADE RN. Pt IS ON ISOLATION FOR +COVID 19. Pt IS RESTING IN BED, RESPIRATIONS EVEN AND UNLABORED. A/O X3, AUSTRALIAN SPEAKING ONLY. PATIENT IS ON 5L NC. NO S/S OF ACUTE DISTRESS OR SOB NOTED. NO SIGNS OF PAIN OR DISCOMFORT NOTED AT THIS TIME. ON TELE MONITOR; TELE READING SINUS RHYTHM HR 89. IV ACCESS IN EMORY MIDLINE, SL; LUCW HD CATH. LAST HD WAS ON 09/02 WITH 1.5 L OUT; NEXT HD SCHEDULED FOR TOMORROW AM. SAFETY MEASURES IN PLACE. BED LOW, LOCKED, HOB ELEVATED, SIDE RAILS UP, CALL LIGHT AND BEDSIDE TABLE WITHIN REACH. BED ALARM ON. WILL CONTINUE TO MONITOR Pt's CONDITION AND SAFETY THROUGHOUT THE NIGHT.
[2019-09-04 20:00] VITALS: BP 110/60
[2019-09-05] VITALS: BP 111/58
[2019-09-05 04:00] VITALS: BP 103/58
--- NOTE | 2019-09-05 05:15 | NUR ---
RN NOTES PAGED PRODUCT ASSURANCE ENGINEER HOSPITALIST. WAITING FOR CALL BACK
--- NOTE | 2019-09-05 06:11 | NUR ---
RN NOTES SPOKE WITH DR YUEN. SAID IS OK TO PUT Pt ON A NRB MASK TITRATE O2 TO KEEP O2 SAT >92% GAVE ORDER FOR ALBUTEROL INHALER 1 PUFF Q4H PRN. WILL CARRY OUT ORDER.
[2019-09-05] MEDS ORDERED: ALBUTEROL SULFATE INH 18 GM HFA.AER.AD IH PRN (06:30)
[2019-09-05 06:48] LABS: BASOPHILS % (AUTO) 0.3 % (0.0-2.0); EOSINOPHILS % (AUTO) 1.5 % (0.0-6.0); HEMATOCRIT 33 % (39-51); HEMOGLOBIN 10.9 g/dL (13.5-17.5); LYMPHOCYTES # (AUTO) 1.3 /CMM (0.8-4.8); LYMPHOCYTES % (AUTO) 13.7 % (20.0-44.0); MEAN CORPUSCULAR HGB CONC 33 g/dl (31.0-36.0); MEAN CORPUSCULAR VOLUME 87 fL (80-96); MONOCYTES # (AUTO) 1.2 /CMM (0.1-1.30); MONOCYTES % (AUTO) 12.6 % (2.0-12.0); NEUTROPHILS # (AUTO) 6.8 /CMM (1.8-8.9); NEUTROPHILS % (AUTO) 71.9 % (43.0-81.0); PLATELET COUNT (AUTO) 241 /CMM (150-450); RED BLOOD CELL COUNT(AUTO) 3.78 MIL/uL (4.5-6.0); WHITE BLOOD COUNT (AUTO) 9.4 K/uL (4.3-11.0)
--- NOTE | 2019-09-05 07:15 | NUR ---
RN CLOSING NOTES NO SIGNIFICANT CHANGES IN Pt's CONDITION. ALL NEEDS MET AND ATTENDED TO. SAFETY MEASURES IN PLACE. TELE READING SR. Pt IS RESTING COMFORTABLY IN BED. WILL ENDORSE TO DAYSHIFT RN FOR Pt's KEVIN.
--- NOTE | 2019-09-05 07:30 | NUR ---
BEAD BUILDER NOTES PT IN BED, ASLEEP, EASY TO AROUSE, ALERT AND VERBALLY RESPONSIVE, NO COMPLAINT OF PAIN, NOT IN DISTRESS, KEPT WARM AND COMFORTABLE, NEEDS ATTENDED, ASSISTED WITH BREAKFAST.
[2019-09-05 07:52] LABS: CALCIUM, SERUM 8.7 mg/dL (8.5-10.1); MAGNESIUM 2.4 mg/dL (1.8-2.4); PHOSPHORUS 2.9 mg/dL (2.5-4.9); POTASSIUM 3.8 mmol/L (3.5-5.1)
[2019-09-05 07:56] LABS: CREATININE 8.6 mg/dL (0.6-1.3)
[2019-09-05 08:00] VITALS: BP 96/58
[2019-09-05] MEDS: LIPASE/PROTEASE/AMYLASE 1 EACH CAPSULE.DR PO SCH ×3 (08:09→17:08)
[2019-09-05] MEDS: SEVELAMER CARBONATE 800 MG TABLET PO SCH ×3 (08:09→17:08)
[2019-09-05] MEDS: CALCITRIOL 0.25 MCG CAPSULE PO SCH (08:09)
[2019-09-05 09:09] LABS: ABG OXYGEN SATURATION 92.1 % (92.0-98.5); ABG PCO2 32.2 mmHg (35.0-45.0); ABG PH 7.441 (7.350-7.450); ABG PO2 68.2 mmHg (75.0-100.0); AaDO2 324.2 mmHg; COHb 0.6 % (0.5-1.5); MetHb 0.3 % (0.0-1.5); O2Hb 91.3 % (94.0-97.0); SITE, ABG Right Radial; VENT MODE, BG 10L SIMPLE MASK
[2019-09-05 12:00] VITALS: BP 94/48
[2019-09-05] MEDS: Z GUARD REMEDY 2 OZ OINT TP SCH (12:08)
--- NOTE | 2019-09-05 12:25 | NUR ---
DISTRIBUTION ANALYST NOTES SCHEDULED MEDS NON ADMIN, PT DOES NOT WANT TO EAT LUNCH AT THIS TIME, S/P HD, 1 LITER OUT, TOLERATED WELL.
[2019-09-05 12:44] LABS: ALBUMIN 1.9 g/dL (3.4-5.0); BILIRUBIN,DIRECT 1.6 mg/dL (0.0-0.2); BILIRUBIN,TOTAL 2.3 mg/dL (0.2-1.0); TOTAL PROTEIN, SERUM 6.7 g/dL (6.4-8.2)
[2019-09-05] MEDS: methylPREDNISolone SOD SUCC 125 MG/2ML VIAL IV SCH (14:56)
[2019-09-05 16:00] VITALS: BP_SYST 106; BP_SYST 109; BP_DIAS 57
[2019-09-05] MEDS ORDERED: diphenhydrAMINE HCL 50 MG/ML VIAL IV ONE (18:00)
[2019-09-05] MEDS ORDERED: ACETAMINOPHEN 325 MG TABLET PO ONE (18:00)
[2019-09-05] MEDS ORDERED: TOCILIZUMAB 400 MG in IV NS 0.9% 80 ML IV ONE (18:30)
--- NOTE | 2019-09-05 19:15 | NUR ---
PODIATRIC FOOT AND ANKLE SPECIALIST NOTES PT IN BED, AWAKE, ALERT AND VERBALLY RESPONSIVE, NO COMPLAINT AT THIS TIME, NOT IN DISTRESS, RESPIRATIONS NORMAL AND NOT LABORED, ON NRB MASK AT 15LPM, O2 SAT DROPS TO 90-91% DURING MEALTIMES, PT REMAINS STABLE AND NO SOB, PM MEDS GIVEN, HD DONE TODAY, TOLERATED WELL, ALL NEEDS ATTENDED.
--- NOTE | 2019-09-05 19:35 | NUR ---
WRAPPER LEAF INSPECTOR NOTES PATIENT RECEIVED IN BED, SLEEPING. EASILY AWAKEN BY TOUCH AND NAME. PATIENT ON NON-REBREATHER MASK, TOLERATING 15L, WITH NON-LABORED BREATHING AT THIS TIME. ON FISH HATCHERY MANAGER, NORMAL SINUS, 80'S. SKIN WARM AND DRY TO TOUCH. IV ACCESS INTACT AND PATENT. PRESENTS NO SIGNS OF PAIN OR DISCOMFORT, PROVIDED COMFORT MEASURES TO PATIENT. SAFETY PRECAUTIONS IN PLACE WITH BED IN LOWEST POSITION, BED LOCKED, BILATERAL SIDE RAILS UP, AND CALL LIGHT WITHIN EASY REACH OF THE PATIENT. WILL CONTINUE TO MONITOR PATIENT.
[2019-09-05 20:00] VITALS: BP 93/50
[2019-09-06] VITALS (7 sets, daily range): BP systolic 88–114; BP diastolic 51–71
--- NOTE | 2019-09-06 | NUR ---
FARMWORKER MACHINE NOTES PATIENT'S AXILLARY TEMPERATURE 95.8, HEATING MEASURES INITIATED. WILL CONTINUE TO MONITOR PATIENT.
--- NOTE | 2019-09-06 06:45 | NUR ---
MINING CONSULTANT NOTES PATIENT IN BED SLEEPING EASILY AWAKEN BY NAME AND LIGHT TOUCH. PATIENT ON NON-REBREATHER MASK, TOLERATING 15L, O2 SATURATION OF 95%, WITH NON-LABORED BREATHING. PATIENT IV ACCESS INTACT AND PATENT. SKIN KEPT CLEAN AND DRY. PATIENT PRESENTS NO SIGN OF PAIN AND DISCOMFORT AT THIS TIME. MET ALL OF PATIENT'S NEEDS AND PROVIDED COMFORT MEASURES. SAFETY PRECAUTIONS IN PLACE WITH BED IN THE LOWEST POSITION, BILATERAL SIDE RAILS UP, BED ALARM ON, BED LOCKED AND CALL LIGHT WITHIN EASY REACH OF THE PATIENT. WILL ENDORSE PLAN OF CARE TO UPCOMING DAYSHIFT NURSE.
[2019-09-06 06:46] LABS: CALCIUM, SERUM 9.1 mg/dL (8.5-10.1); CREATININE 7.1 mg/dL (0.6-1.3); MAGNESIUM 2.7 mg/dL (1.8-2.4); PHOSPHORUS 2.7 mg/dL (2.5-4.9); POTASSIUM 3.6 mmol/L (3.5-5.1)
[2019-09-06 06:50] LABS: BASOPHILS % (AUTO) 0.6 % (0.0-2.0); HEMATOCRIT 33 % (39-51); HEMOGLOBIN 10.9 g/dL (13.5-17.5); LYMPHOCYTES # (AUTO) 0.8 /CMM (0.8-4.8); LYMPHOCYTES % (AUTO) 11.2 % (20.0-44.0); MEAN CORPUSCULAR HGB CONC 33 g/dl (31.0-36.0); MEAN CORPUSCULAR VOLUME 87 fL (80-96); MONOCYTES # (AUTO) 0.5 /CMM (0.1-1.30); MONOCYTES % (AUTO) 6.3 % (2.0-12.0); NEUTROPHILS # (AUTO) 5.9 /CMM (1.8-8.9); NEUTROPHILS % (AUTO) 81.9 % (43.0-81.0); PLATELET COUNT (AUTO) 264 /CMM (150-450); WHITE BLOOD COUNT (AUTO) 7.1 K/uL (4.3-11.0)
[2019-09-06 07:13] LABS: ALBUMIN 1.6 g/dL (3.4-5.0); BILIRUBIN,DIRECT 1.2 mg/dL (0.0-0.2); BILIRUBIN,TOTAL 1.8 mg/dL (0.2-1.0); TOTAL PROTEIN, SERUM 6.7 g/dL (6.4-8.2)
--- NOTE | 2019-09-06 08:00 | NUR ---
CLIENT INSIGHTS CONSULTANT OPENING NOTES RECEIVED PATIENT IN BED, AWAKE ALERT AND ORIENTED X2-3. LITHUANIAN SPEAKING ONLY. PT EATING BREAKFAST DURING INITIAL ROUNDS. NO CARDIAC OR RESPIRATORY DISTRESS NOTED. BREATHING EVEN AND UNLABORED. ON NON-REBREATHER MASK AT 15L/MIN SATURATING AT 94%. INSTRUCTED PT TO TAKE DEEP BREATHS. ON CARDIAC TELE MONITOR SHOWING NORMAL SINUS RHYTHM WITH HR IN THE 80S. IV ACCESS NOTED ON R UPPER ARM MIDLINE. INTACT AND PATENT AND FLUSHING WELL. NO S/S OF INFECTION OR INFILTRATION NOTED. PT HAS NO COMPLAINTS OF PAIN OR DISCOMFORT. SAFETY PRECAUTIONS IN PLACE. BED LOCKED AND IN LOW POSITION. BILATERAL SIDE RAILS UP X2. CALL LIGHT WITHIN REACH. WILL CONTINUE TO MONITOR.
[2019-09-06] MEDS: LIPASE/PROTEASE/AMYLASE 1 EACH CAPSULE.DR PO SCH ×3 (08:21→16:56)
[2019-09-06] MEDS: Z GUARD REMEDY 2 OZ OINT TP SCH (08:21)
[2019-09-06] MEDS: methylPREDNISolone SOD SUCC 125 MG/2ML VIAL IV SCH (08:21)
[2019-09-06] MEDS: SEVELAMER CARBONATE 800 MG TABLET PO SCH ×3 (08:21→16:56)
[2019-09-06] MEDS: CALCITRIOL 0.25 MCG CAPSULE PO SCH (08:21)
[2019-09-06 08:40] LABS: ABG BASE EXCESS 1.3 mmol/L; ABG OXYGEN SATURATION 83.6 % (92.0-98.5); ABG PCO2 36.2 mmHg (35.0-45.0); ABG PH 7.457 (7.350-7.450); ABG PO2 50.1 mmHg (75.0-100.0); AaDO2 193.5 mmHg; COHb 0.4 % (0.5-1.5); MetHb 0.1 % (0.0-1.5); O2Hb 83.2 % (94.0-97.0); SITE, ABG Right Radial; VENT MODE, BG NC 5L EATING
--- NOTE | 2019-09-06 09:45 | NUR ---
ABG RESULTS HECTOR CHRISTENSEN FONDANT COOKER MADE AWARE OF LATEST ABG RESULTS OF TODAY 09/06/19. OKAY PER HECTOR, JUST CONTINUE TO MONITOR FOR SOB. PT'S BREATHING IS EVEN AND UNLABORED. NO SOB NOTED AT THIS TIME. RESPIRATIONS= 19. PT SATURATING AT 93-94%. HECTOR ALSO MADE AWARE OP PTS CURRENT O2 REQUIREMENTS OF 15L VIA NON-REBREATHER MASK.
--- NOTE | 2019-09-06 13:08 | NUR ---
REFUSING TO BE ON PRONE PT REFUSED TO BE ON PRONE POSITION PER DR. QUILES ORDERS. EDUCATED PT REGARDING BENEFITS OF BEING IN THAT POSITION FOR MAXIMUM LUNG EXPANSION. PT STATED, "NOT RIGHT NOW MIJA, I AM TIRED. I WANNA SLEEP." PT FELL ASLEEP WITH CONTINOUS PULSE OX MONITORING. PT SATURATING AT 95% ON 15L O2 VIA NON-REBREATHER MASK.
--- NOTE | 2019-09-06 16:00 | NUR ---
ATTEMPTED TO COLLECT URINE ATTEMPTED TO COLLECT URINE FOR URINALYSIS. HOWEVER,. UNSUCCESSFUL. PT IS A DIALYSIS PT. NO URINE CAME OUT UPON STRAIGHT CATH.
--- NOTE | 2019-09-06 16:28 | NUR ---
RT NOTE PT INSTRUCTED ABOUT REQUIRED SPUTUM SAMPLE. LABELED CUP LEFT AT BED SIDE. PT AWAKE AND ALERT. NO DISTRESS NOTED AT MOMENT. RN HOLLY NOTIFIED.
--- NOTE | 2019-09-06 18:00 | NUR ---
ABD ULTRASOUND DR. LEBLANC MADE AWARE OF ABD ULTRASOUND
--- NOTE | 2019-09-06 18:30 | NUR ---
2ND STRAIGHT CATH 2ND ATTEMPT AT STRAIGHT CATH. NO URINE CAME OUT. OFFERED FLUIDS. WILL ENDORSE TO NEXT SHIFT TO TRY ONE MORE TIME.
--- NOTE | 2019-09-06 19:29 | NUR ---
CYBER OPERATOR CLOSING NOTES CYBER OPERATOR OPENING NOTES PATIENT IN BED, AWAKE ALERT AND ORIENTED X2-3. SLOVAK SPEAKING ONLY.NO CARDIAC OR RESPIRATORY DISTRESS NOTED. BREATHING EVEN AND UNLABORED. ON NON-REBREATHER MASK AT 15L/MIN SATURATING AT 93%. INSTRUCTED PT TO TAKE DEEP BREATHS. ON CARDIAC TELE MONITOR SHOWING NORMAL SINUS RHYTHM WITH HR IN THE 80S. IV ACCESS NOTED ON R UPPER ARM MIDLINE. INTACT AND PATENT AND FLUSHING WELL. NO S/S OF INFECTION OR INFILTRATION NOTED. PT HAS NO COMPLAINTS OF PAIN OR DISCOMFORT. SAFETY PRECAUTIONS IN PLACE. BED LOCKED AND IN LOW POSITION. BILATERAL SIDE RAILS UP X2. CALL LIGHT WITHIN REACH. WILL CONTINUE TO MONITOR.
--- NOTE | 2019-09-06 19:35 | NUR ---
TELE/RN OPENING NOTES: RECEIVED REPORT FROM MAT RAMOS FROM DAY SHIFT. PT IS STABLE RIGHT NOW, A/OX3. WOLOF SPEAKING ONLY. ON 15L OF OXYGEN VIA NON REBREATHER SATURATING AT 94%. TELE READING OF NSR HR ON THE 80S. IV LINE ON THE EMORY MIDLINE AND LEFT UPPER CHEST PERMACATH NOTED. SAFETY MEASURES ARE IN PLACE. WILL ENDORSE PLAN OF CARE TO TOSHA RAMOS FOR KEVIN.
--- NOTE | 2019-09-06 21:00 | NUR ---
TELE/RN NOTES: REPORT GIVEN TO RICHARD GIVENS FOR KEVIN.
--- NOTE | 2019-09-06 21:00 | NUR ---
RN OPENING NOTES RN OPENING NOTES Received patient awake on bed. On NRB, no SOB/respiratory distress noted, saturating well. Patient denies any discomfort at this time. On tele monitor with NSR noted. Kept on NPO as ordered. Kept on bed clean dry and comfortable. On fall and aspiration precautions. Will continue to monitor accordingly.
[2019-09-07] VITALS: BP 111/68
[2019-09-07 04:00] VITALS: BP 109/72
--- NOTE | 2019-09-07 06:12 | NUR ---
RN CLOSING NOTES Patient asleep on bed. On NRB, no SOB/respiratory distress noted, saturating well. Patient denies any discomfort at this time. On tele monitor with NSR noted. All nursing needs attended, no new unusualities noted. Kept on bed clean dry and comfortable. On fall and aspiration precautions. Will continue to monitor accordingly.
[2019-09-07 06:24] LABS: BASOPHILS % (AUTO) 0.4 % (0.0-2.0); HEMATOCRIT 33 % (39-51); HEMOGLOBIN 10.7 g/dL (13.5-17.5); LYMPHOCYTES # (AUTO) 0.8 /CMM (0.8-4.8); LYMPHOCYTES % (AUTO) 5.8 % (20.0-44.0); MEAN CORPUSCULAR HGB CONC 33 g/dl (31.0-36.0); MEAN CORPUSCULAR VOLUME 88 fL (80-96); MONOCYTES # (AUTO) 1.1 /CMM (0.1-1.30); MONOCYTES % (AUTO) 8.1 % (2.0-12.0); NEUTROPHILS # (AUTO) 11.3 /CMM (1.8-8.9); NEUTROPHILS % (AUTO) 85.7 % (43.0-81.0); PLATELET COUNT (AUTO) 274 /CMM (150-450); RED BLOOD CELL COUNT(AUTO) 3.74 MIL/uL (4.5-6.0); WHITE BLOOD COUNT (AUTO) 13.2 K/uL (4.3-11.0)
[2019-09-07 07:01] LABS: CALCIUM, SERUM 9.4 mg/dL (8.5-10.1); MAGNESIUM 2.7 mg/dL (1.8-2.4); PHOSPHORUS 3.7 mg/dL (2.5-4.9)
[2019-09-07 07:19] LABS: CREATININE 8.5 mg/dL (0.6-1.3)
--- NOTE | 2019-09-07 07:30 | NUR ---
Tele/RN Opening note Received patient in bed, able to responds physical stimuli. Pt does no appears pain or any discomfort, skin is warm to touch, kept clean/dry. Pt is on NRB mask, no s/s of respiratory distress, o2sat 93-96%. Kept lower position of the bed with locked wheel and elevated head of bed for secure air way. Call light within reach, will continue to monitor.
[2019-09-07 08:00] VITALS: BP 140/80
[2019-09-07] MEDS: LIPASE/PROTEASE/AMYLASE 1 EACH CAPSULE.DR PO SCH ×3 (08:00→17:15)
[2019-09-07] MEDS: SEVELAMER CARBONATE 800 MG TABLET PO SCH ×3 (08:00→17:15)
[2019-09-07] MEDS: CALCITRIOL 0.25 MCG CAPSULE PO SCH (09:00)
[2019-09-07] MEDS: Z GUARD REMEDY 2 OZ OINT TP SCH (09:38)
[2019-09-07] MEDS: methylPREDNISolone SOD SUCC 125 MG/2ML VIAL IV SCH (09:39)
[2019-09-07 12:00] VITALS: BP 133/72
--- NOTE | 2019-09-07 15:00 | NUR ---
Patient done HD, 2Ls put put.
--- NOTE | 2019-09-07 15:39 | NUR ---
RT NOTE PT REFUSED ABG STATED THEY HAD TAKEN BLOOD BEFORE RISKS AND BENEFITS EXPLAINED WILL TRY AGAIN.
[2019-09-07 16:00] VITALS: BP 124/76
--- NOTE | 2019-09-07 18:30 | NUR ---
Tele/RN Closing note Patient in bed, sleeping comfortably, does no appears pain or any discomfort. Pt is on NRB mask and tolerated, no sob or distress observed. Skin is warm to touch, kept clean/dry, intact midline site. Kept low position of the bed with locked wheel and elevated head of bed for secure airway. Call light within reach, will endorse weight shifter.
[2019-09-07 20:00] VITALS: BP 126/74
[2019-09-08] VITALS (7 sets, daily range): BP systolic 111–141; BP diastolic 61–82
--- NOTE | 2019-09-08 05:21 | NUR ---
WITH RIGHT PLANTAR FOOT BIG DRIED SCAB, NO DRAINAGE. BLE SKIN DRYNESS AND DISCOLORATIONS.
--- NOTE | 2019-09-08 06:46 | NUR ---
QUALITY ENGINEER MEDICAL DEVICE CLOSING NOTES: PATIENT IN BED,AWAKE, A/O X3. NO SOB NOTED. NO COMPLAIN OF PAIN. AFEBRILE. CALL LIGHT WITHIN REACH. BED ALARM ON. BED IN LOWEST AND LOCKED POSITION. PATIENT KEPT ON NON-REBREATHER MASK DURING THE SHIFT. COVID ISOLATION OBSERVED AT ALL TIMES.
[2019-09-08 07:09] LABS: BASOPHILS % (AUTO) 0.1 % (0.0-2.0); HEMATOCRIT 34 % (39-51); LYMPHOCYTES # (AUTO) 0.4 /CMM (0.8-4.8); MEAN CORPUSCULAR HGB CONC 33 g/dl (31.0-36.0); MEAN CORPUSCULAR VOLUME 86 fL (80-96); MONOCYTES # (AUTO) 0.7 /CMM (0.1-1.30); MONOCYTES % (AUTO) 6.1 % (2.0-12.0); NEUTROPHILS # (AUTO) 9.8 /CMM (1.8-8.9); NEUTROPHILS % (AUTO) 89.8 % (43.0-81.0); PLATELET COUNT (AUTO) 286 /CMM (150-450); RED BLOOD CELL COUNT(AUTO) 3.93 MIL/uL (4.5-6.0)
[2019-09-08 07:36] LABS: CALCIUM, SERUM 9.2 mg/dL (8.5-10.1); CREATININE 6.9 mg/dL (0.6-1.3); MAGNESIUM 2.6 mg/dL (1.8-2.4); PHOSPHORUS 3.3 mg/dL (2.5-4.9); POTASSIUM 3.9 mmol/L (3.5-5.1)
--- NOTE | 2019-09-08 08:00 | NUR ---
DRUG ENFORCEMENT AGENT OPENING NOTES RECEIVED PATIENT FROM IRON PLASTIC BULLET MAKER NURSE, IN BED, AWAKE, CONSCIOUS, COOPERATIVE, WITH NON RE-BREATHER MASK AT 15LPM, EMORY MIDLINE SL, LEFT CHEST PERMA CATH, SIDE RAILS UP.
[2019-09-08 08:05] LABS: C-REACTIVE PROTEIN 11.9 mg/dL (0.0-0.9)
[2019-09-08] MEDS: SEVELAMER CARBONATE 800 MG TABLET PO SCH ×3 (08:13→17:04)
[2019-09-08] MEDS: LIPASE/PROTEASE/AMYLASE 1 EACH CAPSULE.DR PO SCH ×3 (08:13→17:04)
[2019-09-08] MEDS: CALCITRIOL 0.25 MCG CAPSULE PO SCH (08:27)
[2019-09-08] MEDS: methylPREDNISolone SOD SUCC 125 MG/2ML VIAL IV SCH (08:27)
[2019-09-08] MEDS: Z GUARD REMEDY 2 OZ OINT TP SCH (08:35)
--- NOTE | 2019-09-08 18:49 | NUR ---
PAPER HANGER CLOSING ENDORSED PATIENT TO DIGESTER COOK NURSE IN BED, AWAKE, CONSCIOUS, COOPERATIVE, A/0 X3, NON RE-BREATHER MASK AT 15LPM, NO SIGNS OF RESPIRATORY DISTRESS, LEFT CHEST PERMA CATH, EMORY MIDLINE SALINE LOCK, NO SIGNS OF REDNESS OR INFILTRATION, SIDE RAILS UP FOR SAFETY.
--- NOTE | 2019-09-08 19:10 | NUR ---
QUANTITATIVE SOFTWARE ENGINEER NOTES RECEIVED PT IN BED AWAKE AND ABLE TO MAKE NEEDS KNOWN. PT A/O X3. RESPIRATIONS EVEN AND UNLABORED WITH NO S/S OF ACUTE DISTRESS OR SOB NOTED. NO COMPLAINTS OF PAIN AT THIS TIME. SAFETY MEASURES IN PLACE WITH BED IN LOWEST LOCKED POSITION WITH SIDE RAILS UP X2. CALL LIGHT WITHIN REACH. WILL CONTINUE TO MONITOR.
[2019-09-09] VITALS: BP 125/73
[2019-09-09 04:00] VITALS: BP 131/77
--- NOTE | 2019-09-09 06:37 | NUR ---
PORCELAIN ENAMEL SPRAYER NOTES PT SATING 100% ON 10L NRB MASK. WILL CONTINUE TO MONITOR.
--- NOTE | 2019-09-09 07:19 | NUR ---
VASC TECH NOTES PT IN BED AWAKE AND ABLE TO MAKE NEEDS KNOWN. PT A/O X3. RESPIRATIONS EVEN AND UNLABORED WITH NO S/S OF ACUTE DISTRESS OR SOB NOTED THROUGHOUT SHIFT. NO COMPLAINTS OF PAIN AT THIS TIME. PT KEPT CLEAN, DRY, AND COMFORTABLE. SAFETY MEASURES IN PLACE WITH BED IN LOWEST LOCKED POSITION WITH SIDE RAILS UP X2. CALL LIGHT WITHIN REACH. WILL ENDORSE TO ONCOMING NURSE FOR KEVIN.
--- NOTE | 2019-09-09 07:25 | NUR ---
SELLING SPECIALIST OPENING NOTES RECEIVED PT IN BED. AWAKE, A/O X3, CAMEROONIAN SPEAKING BUT CAN UNDERSTAND LITTLE ERITREAN. PT ON SUPPLEMENTARY OXYGEN AT 10LPM VIA NRB, WITH NO ACUTE RESPIRATORY DISTRESS NOTED. PT DENIES ANY PAIN OR DISCOMFORT AT THIS TIME WELL. PT DENIES ANY CONCERNS OR QUESTIONS. ON TELEMONITORING AT SR 84. LCW PERMACATH FOR HD ACCESS NOTED WELL. PIV TO EMORY MIDLINE, FLUSHED WITH NS, INTACT AND OPERATIONAL. PER NIGHT NURSE, NEEDS FOR URINE TO BE COLLECTED, WILL FOLLOW UP. PT KEPT COMFORTABLE IN BED. CALL LIGHT KEPT WITHIN REACH. PT'S BED IN LOWEST, LOCKED POSITION X3. WILL CONTINUE PLAN OF CARE.
[2019-09-09 08:00] VITALS: BP 106/59
[2019-09-09] MEDS: SEVELAMER CARBONATE 800 MG TABLET PO SCH ×3 (09:05→17:05)
[2019-09-09] MEDS: LIPASE/PROTEASE/AMYLASE 1 EACH CAPSULE.DR PO SCH ×3 (09:05→17:05)
[2019-09-09] MEDS: CALCITRIOL 0.25 MCG CAPSULE PO SCH (09:05)
[2019-09-09] MEDS: methylPREDNISolone SOD SUCC 125 MG/2ML VIAL IV SCH (09:05)
[2019-09-09] MEDS: Z GUARD REMEDY 2 OZ OINT TP SCH (09:06)
[2019-09-09 09:29] LABS: BASOPHILS % (AUTO) 0.3 % (0.0-2.0); EOSINOPHILS % (AUTO) 0.1 % (0.0-6.0); HEMATOCRIT 33 % (39-51); LYMPHOCYTES # (AUTO) 0.7 /CMM (0.8-4.8); LYMPHOCYTES % (AUTO) 7.3 % (20.0-44.0); MEAN CORPUSCULAR HGB CONC 33 g/dl (31.0-36.0); MEAN CORPUSCULAR VOLUME 87 fL (80-96); MONOCYTES # (AUTO) 0.5 /CMM (0.1-1.30); MONOCYTES % (AUTO) 4.8 % (2.0-12.0); NEUTROPHILS # (AUTO) 8.4 /CMM (1.8-8.9); NEUTROPHILS % (AUTO) 87.5 % (43.0-81.0); PLATELET COUNT (AUTO) 226 /CMM (150-450); RED BLOOD CELL COUNT(AUTO) 3.83 MIL/uL (4.5-6.0); WHITE BLOOD COUNT (AUTO) 9.6 K/uL (4.3-11.0)
[2019-09-09 09:38] LABS: ABG BASE EXCESS -0.2 mmol/L; ABG OXYGEN SATURATION 86.9 % (92.0-98.5); ABG PCO2 32.6 mmHg (35.0-45.0); ABG PH 7.466 (7.350-7.450); ABG PO2 54.7 mmHg (75.0-100.0); AaDO2 481.5 mmHg; COHb 0.7 % (0.5-1.5); MetHb 0.2 % (0.0-1.5); O2Hb 86.1 % (94.0-97.0); SITE, ABG Right Radial; VENT MODE, BG NRB
[2019-09-09 09:51] LABS: ALBUMIN 1.9 g/dL (3.4-5.0); BILIRUBIN,DIRECT 0.8 mg/dL (0.0-0.2); BILIRUBIN,TOTAL 1.5 mg/dL (0.2-1.0); TOTAL PROTEIN, SERUM 6.4 g/dL (6.4-8.2)
--- NOTE | 2019-09-09 10:23 | NUR ---
FASHION CONSULTANT SALES NOTES DR. QUILES SEEN AND EVALUATED PT. RN INFORMED THE ABG RESULT WELL. NO NEW ORDERS NOTED AT THIS TIME. WLL CONTINUE TO MONITOR.
[2019-09-09 10:38] LABS: C-REACTIVE PROTEIN 8.3 mg/dL (0.0-0.9)
[2019-09-09 12:00] VITALS: BP 129/76
--- NOTE | 2019-09-09 15:45 | NUR ---
TELE NOTES PT HAD HD, NO OUTPUT. CLEANING ONLY PER DIALYSIS NURSE/AVANI. WILL CONTINUE TO MONITOR.
[2019-09-09 16:00] VITALS: BP_SYST 102; BP_DIAS 65; BP_DIAS 69
--- NOTE | 2019-09-09 18:39 | NUR ---
PATTERN DUPLICATOR CLOSING NOTES PT REMAINS IN BED. AWAKE, A/O X3, INDONESIAN SPEAKING BUT CAN UNDERSTAND LITTLE JAPANESE. PT ON SUPPLEMENTARY OXYGEN AT 10LPM VIA NRB, WITH NO ACUTE RESPIRATORY DISTRESS NOTED. PT DENIES ANY PAIN OR DISCOMFORT AT THIS TIME WELL. ON TELEMONITORING AT SR 97. LCW PERMACATH FOR HD ACCESS, HAD HD TODAY AND NO OUTPUT NOTED. PIV TO EMORY MIDLINE, FLUSHED WITH NS, INTACT AND OPERATIONAL. NO UA COLLECTED, TO ENDORSE TO REWORKER WELL. PT KEPT COMFORTABLE IN BED. ALL NEEDS AND CARE PROVIDED AND ATTENDED. CALL LIGHT KEPT WITHIN REACH. PT'S BED IN LOWEST, LOCKED POSITION X3. WILL ENDORSE TO INCOMING NIGHT NURSE FOR KEVIN.
[2019-09-09 20:00] VITALS: BP 117/72
--- NOTE | 2019-09-09 20:00 | NUR ---
HIGH SCHOOL MUSIC INSTRUCTOR CLOSING NOTES PT REMAINS IN BED. AWAKE, A/O X3, POLISH SPEAKING CAN UNDERSTAND LITTLE PERSIAN. PT ON OXYGEN AT 10LPM VIA NRB, WITH NO ACUTE RESPIRATORY DISTRESS NOTED,NO SOB NOTED. PT DENIES ANY PAIN OR DISCOMFORT AT THIS TIME . ON TELE MONITOR SR SATING 92-94%. LCW PERMACATH FOR HD ACCESS, PER ENDORSEMENT PTS HAD DIALYSIS TODAY WITH NO OUTPUT CLEANING ONLY. PIV TO EMORY MIDLINE INTACT AND PATENT . V/S STABLE AFEBRILE .PT KEPT COMFORTABLE IN BED. ALL NEEDS AND CARE PROVIDED AND ATTENDED. CALL LIGHT KEPT WITHIN REACH. PT'S BED IN LOWEST, LOCKED POSITION X3.PRECAUTIONARY MEASURES OBSERVED AT ALL TIMES , WILL CONTINUE TO MONITOR PTS.
[2019-09-10] VITALS: BP 126/78
[2019-09-10 04:00] VITALS: BP 91/60
--- NOTE | 2019-09-10 07:09 | NUR ---
HAND DRAWER IN NOTES ENDORSE PTS WITH RN RONA FOR CONTINUITY OF CARE PTS REMAINS ON 10 LITERS OF 02 NON REBREATHER MASK SATING 100%.
[2019-09-10 07:48] LABS: ALBUMIN 1.8 g/dL (3.4-5.0); BILIRUBIN,DIRECT 0.6 mg/dL (0.0-0.2); BILIRUBIN,TOTAL 1.2 mg/dL (0.2-1.0); TOTAL PROTEIN, SERUM 5.9 g/dL (6.4-8.2)
[2019-09-10 08:00] VITALS: BP_SYST 102; BP_SYST 132; BP_DIAS 62; BP_DIAS 70; BP_DIAS 72
[2019-09-10 08:17] LABS: C-REACTIVE PROTEIN 7.1 mg/dL (0.0-0.9)
[2019-09-10] MEDS: LIPASE/PROTEASE/AMYLASE 1 EACH CAPSULE.DR PO SCH ×3 (08:40→17:48)
[2019-09-10] MEDS: CALCITRIOL 0.25 MCG CAPSULE PO SCH (08:41)
[2019-09-10] MEDS: methylPREDNISolone SOD SUCC 125 MG/2ML VIAL IV SCH (08:41)
[2019-09-10] MEDS: SEVELAMER CARBONATE 800 MG TABLET PO SCH ×3 (08:41→17:48)
[2019-09-10] MEDS: Z GUARD REMEDY 2 OZ OINT TP SCH (09:13)
[2019-09-10 12:00] VITALS: BP 89/54
[2019-09-10 16:00] VITALS: BP_SYST 80; BP_SYST 84; BP_DIAS 50; BP_DIAS 54
--- NOTE | 2019-09-10 16:30 | NUR ---
RN NOTES PT O2 SAT DROPPED TO 88% ON 6L VIA FACEMASK, WITH BP 80/50. PT IS SLEEPING BUT AWAKENS TO STIMULI. PLACED PT ON 15L VIA NON-REBREATHER. DR. QUILES AND HECTOR LOUISE MADE AWARE, RECEIVED ORDER FOR ABG. WILL CONTINUE TO MONITOR
[2019-09-10 16:44] LABS: ABG BASE EXCESS 1.2 mmol/L; ABG OXYGEN SATURATION 94.9 % (92.0-98.5); ABG PCO2 30.1 mmHg (35.0-45.0); ABG PH 7.513 (7.350-7.450); ABG PO2 77.4 mmHg (75.0-100.0); AaDO2 461.4 mmHg; COHb 0.7 % (0.5-1.5); MetHb 0.3 % (0.0-1.5); SITE, ABG Right Radial; VENT MODE, BG NRB
--- NOTE | 2019-09-10 17:07 | NUR ---
RN NOTES ABG HAS BEEN RESULTED WITH PO2 OF 77. RELAYED TO DR. QUILES, NO NEW ORDERS AT THIS TIME. WILL CONTINUE TO MONITOR
--- NOTE | 2019-09-10 19:12 | NUR ---
RN CLOSING NOTES PATIENT IS RESTING IN BED COMFORTABLY. PT BP AND OXYGEN SATURATION HAVE IMPROVED COMPARED TO COUPLE HOURS AGO. HE IS ON 15L OF OXYGEN VIA NON-REBREATHER, SATING AT 99%, BP 114/70. PT IS NOT IN DISTRESS. NO ACUTE CHANGES OCCURRED THROUGHOUT THE SHIFT, VITAL SIGNS ARE STABLE, PT NEEDS HAVE BEEN MET. SAFETY MEASURES HAVE BEEN IMPLEMENTED, CALL LIGHT IS WITHIN REACH, BED IS IN LOWEST AND LOCKED POSITION, SIDE RAILS UP X2, PT HAS BEEN ENDORSED TO NIGHTSHIFT RN FOR KEVIN.
[2019-09-10 20:00] VITALS: BP 96/65
[2019-09-11] VITALS (18 sets, daily range): BP systolic 92–131; BP diastolic 44–88
--- NOTE | 2019-09-11 05:00 | NUR ---
0500 REPORTED BY RN PATIENT BP CONSISTENTLY LOW IN THE 50S-60S AFTER CHECKING 5X. RECHECKED ON RIGHT LEG AND OBTAINED 98/38. PATIENT AWAKE AND VERBALLY RESPONSIVE. DENIES FANNY PAIN. ON 100% NON RE BREATHER MASK SATTING 100%. NO SIGNS OF DISTRESS. ASPEN LEZAMA MADE AWARE WITH INSTRUCTION TO MONITOR AND RE CHECK BP IN ONE HOUR.
--- NOTE | 2019-09-11 06:00 | NUR ---
RN NOTE BLOOD PRESSURE RECHECKED IN RIGHT LEG. BLOOD PRESSURE 95/43. O2 SATURATION 100% WHILE ON 15L NON REBREATHER. NO SHORTNESS OF BREATH. PT IS ALERT AND ORIENTED WITHOUT COMPLAINTS. WILL CONTINUE TO MONITOR.
[2019-09-11] MEDS: LIPASE/PROTEASE/AMYLASE 1 EACH CAPSULE.DR PO SCH ×3 (08:04→17:00)
[2019-09-11] MEDS: CALCITRIOL 0.25 MCG CAPSULE PO SCH (08:04)
[2019-09-11] MEDS: SEVELAMER CARBONATE 800 MG TABLET PO SCH ×3 (08:04→17:00)
[2019-09-11] MEDS: Z GUARD REMEDY 2 OZ OINT TP SCH (08:05)
[2019-09-11 08:26] LABS: BASOPHILS % (AUTO) 0.3 % (0.0-2.0); EOSINOPHILS % (AUTO) 0.6 % (0.0-6.0); HEMATOCRIT 31 % (39-51); HEMOGLOBIN 10.1 g/dL (13.5-17.5); LYMPHOCYTES % (AUTO) 8.5 % (20.0-44.0); MEAN CORPUSCULAR HGB CONC 33 g/dl (31.0-36.0); MEAN CORPUSCULAR VOLUME 87 fL (80-96); MONOCYTES % (AUTO) 6.8 % (2.0-12.0); NEUTROPHILS % (AUTO) 83.8 % (43.0-81.0); PLATELET COUNT (AUTO) 139 /CMM (150-450); RED BLOOD CELL COUNT(AUTO) 3.55 MIL/uL (4.5-6.0); WHITE BLOOD COUNT (AUTO) 12.6 K/uL (4.3-11.0)
[2019-09-11 08:27] LABS: LYMPHOCYTES # (AUTO) 1.1 /CMM (0.8-4.8); MONOCYTES # (AUTO) 0.9 /CMM (0.1-1.30); NEUTROPHILS # (AUTO) 10.5 /CMM (1.8-8.9)
[2019-09-11 09:12] LABS: C-REACTIVE PROTEIN 6.2 mg/dL (0.0-0.9)
[2019-09-11 09:26] LABS: BILIRUBIN,TOTAL 1.3 mg/dL (0.2-1.0); CALCIUM, SERUM 8.5 mg/dL (8.5-10.1); POTASSIUM 4.4 mmol/L (3.5-5.1); TOTAL PROTEIN, SERUM 6.1 g/dL (6.4-8.2)
[2019-09-11 09:33] LABS: CREATININE 8.5 mg/dL (0.6-1.3)
[2019-09-11 10:39] LABS: ABG OXYGEN SATURATION 88.9 % (92.0-98.5); ABG PCO2 30.8 mmHg (35.0-45.0); ABG PH 7.518 (7.350-7.450); AaDO2 481.1 mmHg; COHb 0.3 % (0.5-1.5); MetHb 0.3 % (0.0-1.5); O2Hb 88.4 % (94.0-97.0); SITE, ABG Right Radial; VENT MODE, BG NRB
--- NOTE | 2019-09-11 11:00 | NUR ---
RN NOTE PATIENT SEEMS TO BE IN DISTRESS, O2 MONITOR WAS READING 100% WITH SYMMETRICAL WAVEFORM NOTED. USED A DIFFERENT SPO2 MACHINE O2 SATURATION AT 88% ON 15L NON REBREATHER MASK. NOTIFIED HECTOR KOHLI, SHE ASSESSED THE PATIENT AND ORDERED STAT ABG. ALL PATIENT NEEDS MET, SAFETY WAS BEING MAINTAINED, CALL LIGHT WITHIN REACH. WILL CONTINUE TO MONITOR CLOSELY.
--- NOTE | 2019-09-11 12:50 | NUR ---
RN NOTE TRANSFERRED PATIENT TO ICU PER DR QUILES ORDER. PATIENT JUST FINISHED DIALYSIS, NOTHING WAS TAKEN OUT. PER MD ORDER, PATIENT WAS PLACED ON HIFLOW OXYGEN AT 50L WITH 100% FIO2. RT PLACED THE PATIENT ON HIFLOW, ORDERED ABG 2HRS AFTER. PATIENT SAFETY WAS MAINTAINED, TRANSFERRED PATIENT TO ICU ROOM 253 USING THE ACLS PROTOCOL, REPORT GIVEN TO BRE RAMOS. ALL PATIENT NEEDS MET, SAFETY WAS MAINTAINED.
--- NOTE | 2019-09-11 13:30 | NUR ---
RN NOTES RECEIVED PT VIA BED FROM [facility]ANCE. PT A/OX3, BAHAMIAN SPEAKING. PLACED ON MONITOR. PT ON HIGH FLOW 02. HOB ELEVATED. NO RESPIRATORY DISTRESS NOTED. NO SOB NOTED. DENIES ANY PAIN. PT CLEAN AND COMFORTABLE. WILL MONITOR
--- NOTE | 2019-09-11 14:30 | NUR ---
RN NOTES PT TRIED TO PLACE ON PRONE POSITION ORDERED BY DR QUILES. PT UNABLE TO TOLERATE IT. PT NOTED HAVING RESPIRATORY DISTRESS. PT UNCOMFORTABLE WITH THE POSITION. DR QUILES IN THE UNIT, AWARE OF THE SITUATION. PER MD, KEEP PT ON ONE SIDE TOLERATED. WILL CLOSELY MONITOR
[2019-09-11 15:10] LABS: ABG BASE EXCESS 1.7 mmol/L; ABG OXYGEN SATURATION 91.3 % (92.0-98.5); ABG PCO2 29.6 mmHg (35.0-45.0); ABG PH 7.527 (7.350-7.450); ABG PO2 61.9 mmHg (75.0-100.0); AaDO2 621.5 mmHg; COHb 0.3 % (0.5-1.5); MetHb 0.3 % (0.0-1.5); O2Hb 90.8 % (94.0-97.0); SITE, ABG Right Radial; VENT MODE, BG HI FLO NC 50L 100%
--- NOTE | 2019-09-11 18:24 | NUR ---
RN CLOSING NOTES NO SIGNIFICANT CHANGE NOTED. REMAINS A/O, ON HIGH FLOW 02. KEPT HOB ELEVATED. DENIES ANY PAIN. TX PROVIDED ORDERED. KEPT CLEAN AND DRY. REPOSITIONED WHEN ABLE DUE TO ISOLATION. KEPT COMFORTABLE. WILL ENDORSE FOR CONTINUITY OF CARE.
--- NOTE | 2019-09-11 20:00 | NUR ---
RN/ICU-RECEIVED PT. ASLEEP. AROUSABLE, ORIENTED X3, GERMAN SPEAKING W/ LIMITED SERBIAN. EKG SR. ON HI FLOW O250L/100%, NO S/S OF DISTRESS. AFEBRILE. PT. IS A FULL CODE. COVID POSITIVE. ON SPECIAL DROPLET ISOLATION, PRECAUTIONS IN EFFECT.PT. W/ DIABETIC LEFT FOOT ULCER, INTACT W/ BETADINE AND MEPILEX. WD. NOT SEEN AT THIS TIME.
[2019-09-12] VITALS (33 sets, daily range): BP systolic 66–123; BP diastolic 36–83
[2019-09-12 05:32] LABS: C-REACTIVE PROTEIN 5.2 mg/dL (0.0-0.9)
--- NOTE | 2019-09-12 06:00 | NUR ---
RN/ICU- ASLEEP, REMAINS ON HI FLOW NC, SATS-93%, NO S/S OF DISTRESS OR DISCOMFORT.
--- NOTE | 2019-09-12 07:20 | NUR ---
RN OPENING NOTE: RECEIVED PATIENT IN BED THIS MORNING. PATIENT IS ALERT AND ORIENTED X3, BURMESE SPEAKING, RESPONDS APPROPRIATELY. ON HI FLOW, NO SIGNS OF RESPIRATORY DISTRESS NOTED. NO SIGNS OF ACUTE DISTRESS NOTED. COVID +, ISOLATION PRECAUTIONS IMPLEMENTED. SAFETY MEASURES IMPLEMENTED, BED IN LOWEST POSITION, LOCKED, SIDE RAILS UP, CALL LIGHT WITHIN REACH, WILL CONTINUE TO MONITOR PATIENT FOR CHANGES.
[2019-09-12] MEDS: SEVELAMER CARBONATE 800 MG TABLET PO SCH ×3 (07:55→18:28)
[2019-09-12] MEDS: LIPASE/PROTEASE/AMYLASE 1 EACH CAPSULE.DR PO SCH ×3 (07:55→18:28)
[2019-09-12] MEDS: CALCITRIOL 0.25 MCG CAPSULE PO SCH (08:01)
[2019-09-12] MEDS: Z GUARD REMEDY 2 OZ OINT TP SCH (08:02)
[2019-09-12 08:20] LABS: ABG BASE EXCESS -0.1 mmol/L; ABG OXYGEN SATURATION 86.7 % (92.0-98.5); ABG PCO2 32.4 mmHg (35.0-45.0); ABG PH 7.472 (7.350-7.450); ABG PO2 53.2 mmHg (75.0-100.0); AaDO2 555.3 mmHg; COHb 0.5 % (0.5-1.5); MetHb 0.2 % (0.0-1.5); O2Hb 86.1 % (94.0-97.0); SITE, ABG Right Radial; VENT MODE, BG HFNC
[2019-09-12] MEDS ORDERED: NEPRO VAN 237 ML CAN PO PRN (11:00)
--- NOTE | 2019-09-12 13:15 | NUR ---
CONTACTED DR VOSS IN REGARDS TO PATIENT'S LOW BP W/ NEW ORDERS FOR NS BOLUS AND LEVOPHED PRN.
[2019-09-12] MEDS ORDERED: IV NS 0.9% 250 ML IV ONE (13:30)
--- NOTE | 2019-09-12 19:30 | NUR ---
MEAT SELECTOR OPENING NOTE, RECEIVED PATIENT IN BED, ALERT AND ORIENTED X3, OCCITAN SPEAKING, RESPONDS APPROPRIATELY. ON HI FLOW, NO S/S OF SOB OR RESPIRATORY DISTRESS NOTED. NO SIGNS OF ACUTE DISTRESS NOTED. COVID +, ISOLATION PRECAUTIONS IMPLEMENTED. BILATERAL SOFT WRIST RESTRAINS NOTED. SAFETY MEASURES IMPLEMENTED, BED IN LOW/LOCKED POSITION , SIDE RAILS UP, CALL LIGHT WITHIN REACH, WILL CONTINUE TO MONITOR PATIENT CLOSELY.
--- NOTE | 2019-09-12 20:02 | NUR ---
RN CLOSING NOTE: PATIENT REMAINS IN BED. NO SIGNS OF RESPIRATORY DISTRESS NOTED. NO SIGNS OF ACUTE DISTRESS NOTED. COVID +, ISOLATION PRECAUTIONS IMPLEMENTED. SAFETY MEASURES IMPLEMENTED, BED IN LOWEST POSITION, LOCKED, SIDE RAILS UP, CALL LIGHT WITHIN REACH, ENDORSED TO ONCOMING SHIFT RN FOR CONTINUITY OF CARE.
--- NOTE | 2019-09-12 22:04 | NUR ---
RECEIVED PT ON HFNC 60L, 95%. PT O2 SAT 100%. CONTINUE TO MONITOR. Addendum: 09/12/19 at 2205 by TIFFANY PIERCE RT Amended: Links added.
--- NOTE | 2019-09-12 22:16 | NUR ---
PER CHARGE NURSE ANTIONETTE, NO MRSA WAS DONE ON PATIENT. PAGED VALERIE, KAMILLA, PER HIM SKIP FOR NOW AND ENDORSE IT TO AM RN TO FOLLOW UP WITH INFECTION CONTROL.
[2019-09-13] VITALS (99 sets, daily range): BP systolic 72–171; BP diastolic 37–99
[2019-09-13] MEDS: NOREPINEPHRINE 32 MG in IV NS 0.9% 218 ML IV PRN ×2 (02:59→16:02)
--- NOTE | 2019-09-13 03:10 | NUR ---
PATIENTS BP LOW 73/37 MAP OF 51@ 0200 CHECKED AGAIN 87/55 MAP OF 66 @0215 AND 72/43 MAP OF 54 @0300. PRN LEVO DRIP STARTED AT 0.1MCG/KG/MIN. AT 0300. WILL CONTINUE TO MONITOR. Addendum: 09/13/19 at 0433 by ANDI ELLISON RN LEVO DRIP TITRATED TO 0.05, BP 99/57 MAP OF 74 @ 0430. TOLERATING WELL. WILL CONTINUE TO MONITOR. THE BP CLOSELY.
[2019-09-13 04:34] LABS: BASOPHILS # (AUTO) 0.1 /CMM (0.0-0.2); BASOPHILS % (AUTO) 0.4 % (0.0-2.0); HEMATOCRIT 34 % (39-51); HEMOGLOBIN 11.1 g/dL (13.5-17.5); LYMPHOCYTES # (AUTO) 2.4 /CMM (0.8-4.8); LYMPHOCYTES % (AUTO) 13.3 % (20.0-44.0); MEAN CORPUSCULAR HGB CONC 33 g/dl (31.0-36.0); MEAN CORPUSCULAR VOLUME 88 fL (80-96); MONOCYTES # (AUTO) 1.3 /CMM (0.1-1.30); MONOCYTES % (AUTO) 7.5 % (2.0-12.0); NEUTROPHILS # (AUTO) 13.8 /CMM (1.8-8.9); NEUTROPHILS % (AUTO) 77.8 % (43.0-81.0); PLATELET COUNT (AUTO) 164 /CMM (150-450); RED BLOOD CELL COUNT(AUTO) 3.84 MIL/uL (4.5-6.0); WHITE BLOOD COUNT (AUTO) 17.7 K/uL (4.3-11.0)
[2019-09-13 04:48] LABS: ALBUMIN 2.1 g/dL (3.4-5.0); BILIRUBIN,TOTAL 1.6 mg/dL (0.2-1.0); CALCIUM, SERUM 8.6 mg/dL (8.5-10.1); POTASSIUM 4.2 mmol/L (3.5-5.1); TOTAL PROTEIN, SERUM 6.7 g/dL (6.4-8.2)
[2019-09-13 04:51] LABS: CREATININE 7.8 mg/dL (0.6-1.3)
--- NOTE | 2019-09-13 07:17 | NUR ---
EVENT SET UP SPECIALIST CLOSING NOTE, PATIENT IN BED, ALERT AND ORIENTED X3, TURKMEN SPEAKING, RESPONDS APPROPRIATELY. ON HI FLOW,TOLERATING WELL, NO S/S OF SOB OR RESPIRATORY DISTRESS NOTED. NO SIGNS OF ACUTE DISTRESS NOTED. COVID +, ISOLATION PRECAUTIONS IMPLEMENTED. PATIENT HAS EMORY MID-LINE RUNNING LEVO @0.05 MCG/KG/MIN, LCW HD CATH. BILATERAL SOFT WRIST RESTRAINS NOTED. SAFETY MEASURES IMPLEMENTED, BED IN LOW/LOCKED POSITION , SIDE RAILS UP, CALL LIGHT WITHIN REACH, ENDORSED THE PATIENT TO AM RN FOR KEVIN.
--- NOTE | 2019-09-13 08:00 | NUR ---
rn nicu received pt in bed aox3 released restraints as pt is safe, pt on oxigen, levophed for sbp maintanance pt turned and reposition, offload all extremities vs stable safety measures taken tought pt deep breathing and cough, will continue to monitor. Dr. Hummel at bedside assessig pt.
[2019-09-13] MEDS: SEVELAMER CARBONATE 800 MG TABLET PO SCH ×3 (08:38→17:51)
[2019-09-13] MEDS: CALCITRIOL 0.25 MCG CAPSULE PO SCH (08:38)
[2019-09-13] MEDS: LIPASE/PROTEASE/AMYLASE 1 EACH CAPSULE.DR PO SCH ×3 (08:38→17:51)
[2019-09-13] MEDS: Z GUARD REMEDY 2 OZ OINT TP SCH (08:39)
[2019-09-13 10:37] LABS: ABG BASE EXCESS -1.8 mmol/L; ABG OXYGEN SATURATION 89.4 % (92.0-98.5); ABG PCO2 33.4 mmHg (35.0-45.0); ABG PH 7.434 (7.350-7.450); ABG PO2 60.1 mmHg (75.0-100.0); AaDO2 583.4 mmHg; COHb 0.1 % (0.5-1.5); MetHb 0.1 % (0.0-1.5); O2Hb 89.2 % (94.0-97.0); SITE, ABG Left Radial; VENT MODE, BG HFNC 60L 95%
[2019-09-13] MEDS ORDERED: ALBUMIN 25% 12.5 GM/50 ML BOTTLE IV ONE (12:00)
--- NOTE | 2019-09-13 12:58 | NUR ---
agricultural research engineer pt hd completed ffp was also given with hd by hd nurse, no distress during hd pt still on levophed sbp maintanance 1000ml out will continue to monitor.
[2019-09-13] MEDS: HEPARIN SODIUM, PORCINE 5000 UNITS/1 ML VIAL SQ SCH ×2 (16:08→20:16)
--- NOTE | 2019-09-13 17:51 | NUR ---
RT PATIENT REMAINS ON HFNC 60L 95%. PATIENT RESPONSIVE TO COMMANDS AND IS HAVING MOD AMT OF SOB. ABG IS SHOWING ADEQUATE VENTILATION. PER DR QUILES WILL CONT CURRENT RESP CARE. Addendum: 09/13/19 at 1751 by JANICE RHODES RT Amended: Links added.
--- NOTE | 2019-09-13 19:45 | NUR ---
GLUING MACHINE OPERATOR ELECTRONIC OPENING NOTE, RECEIVED PATIENT IN BED, ALERT AND ORIENTED X3, NAURUAN SPEAKING, RESPONDS APPROPRIATELY. ON HI FLOW O2,TOLERATING WELL, NO SOB OR ACUTE RESPIRATORY DISTRESS NOTED. COVID +, ISOLATION PRECAUTIONS IMPLEMENTED. PATIENT HAS EMORY MID-LINE RUNNING LEVO @0.05 MCG/KG/MIN, LCW HD CATH. SAFETY MEASURES IMPLEMENTED, BED IN LOW/LOCKED POSITION , SIDE RAILS UP, CALL LIGHT WITHIN REACH, WILL CONTINUE TO MONITOR THE PATIENT CLOSELY.
--- NOTE | 2019-09-13 19:59 | NUR ---
RECEIVED PT ON NRB. PT O2 SAT 100%. WILL CONTINUE TO MONITOR T/O SHIFT. NO SOB NOTED Addendum: 09/13/19 at 1999 by SUSIE BARAJAS RT Amended: Links added.
[2019-09-14] VITALS (81 sets, daily range): BP systolic 61–165; BP diastolic 27–86
[2019-09-14] MEDS: LIPASE/PROTEASE/AMYLASE 1 EACH CAPSULE.DR PO SCH ×3 (07:05→17:40)
[2019-09-14] MEDS: SEVELAMER CARBONATE 800 MG TABLET PO SCH ×3 (07:05→17:39)
--- NOTE | 2019-09-14 07:30 | NUR ---
NEW CAR GET READY MECHANIC NOTES, CONTINUED THE CARE FOR THE PATIENT DURING AM SHIFT, PATIENT REMAINS IN STABLE CONDITION, VSS, NO SOB OR ACUTE DISTRESS AT TIS TIME. CALL CARE HAS BEEN PROVIDED DURING NUISANCE ANIMAL DAMAGE CONTROL AGENT, BED IN LOW LOCKED POSITION CALL LIGHT WITHIN REACH. WILL CONTINUE TO MONITOR.
[2019-09-14] MEDS: HEPARIN SODIUM, PORCINE 5000 UNITS/1 ML VIAL SQ SCH ×2 (09:17→21:09)
[2019-09-14] MEDS: CALCITRIOL 0.25 MCG CAPSULE PO SCH (09:17)
[2019-09-14] MEDS: Z GUARD REMEDY 2 OZ OINT TP SCH (09:18)
[2019-09-14 12:56] LABS: BASOPHILS # (AUTO) 0.2 /CMM (0.0-0.2); BASOPHILS % (AUTO) 0.7 % (0.0-2.0); EOSINOPHILS % (AUTO) 1.2 % (0.0-6.0); HEMATOCRIT 31 % (39-51); HEMOGLOBIN 10.3 g/dL (13.5-17.5); LYMPHOCYTES # (AUTO) 2.5 /CMM (0.8-4.8); MEAN CORPUSCULAR HGB CONC 33 g/dl (31.0-36.0); MEAN CORPUSCULAR VOLUME 88 fL (80-96); MONOCYTES # (AUTO) 1.6 /CMM (0.1-1.30); MONOCYTES % (AUTO) 7.2 % (2.0-12.0); NEUTROPHILS # (AUTO) 18.3 /CMM (1.8-8.9); NEUTROPHILS % (AUTO) 79.9 % (43.0-81.0); PLATELET COUNT (AUTO) 190 /CMM (150-450); RED BLOOD CELL COUNT(AUTO) 3.57 MIL/uL (4.5-6.0); WHITE BLOOD COUNT (AUTO) 22.9 K/uL (4.3-11.0)
[2019-09-14 13:14] LABS: CALCIUM, SERUM 8.2 mg/dL (8.5-10.1); POTASSIUM 3.9 mmol/L (3.5-5.1)
[2019-09-14 13:20] LABS: CREATININE 7.9 mg/dL (0.6-1.3)
[2019-09-14 13:30] LABS: IRON, SERUM 26 ug/dl (50-175); TOTAL IRON BINDING CAPACITY 147 ug/dl (250-450)
[2019-09-14] MEDS ORDERED: VANCOMYCIN 1 GM in IV D5W 250ml IV ONE (14:00)
[2019-09-14] MEDS ORDERED: VANCOMYCIN POST DIALYSIS 500MG IV PRN ×2 (14:00)
[2019-09-14] MEDS ORDERED: FEE PK DOSING 1 MIN EA MC ONE (14:07)
--- NOTE | 2019-09-14 14:30 | NUR ---
RN/ICU-RECEIVED PT. FROM RCIHARD ELLISON.PT. SLEEPING, AROUSABLE, ORIENTED X3. GUATEMALAN SPEAKING W/ LIMITED LUXEMBOURGISH. BREATHING SPONTANEOUSLY TO ROOM AIR W/ O2 SUPPORT OF HIGH FLOW FIO2-L/95%, W/ NRB. SATS.-97%. SOB W/ MINIMAL EXERTION.EKG SR W/ HR-92, BP-122/60. ON LEVOPHED DRIP AT 0.1 MCG/KG/MIN. WILL TITRATE ACCORDINGLY PER PROTOCOL..TEMPT.-99.5/F, ON SPECIAL CONTACT ISOLATION FOR COVID. PRECAUTIONS TAKEN PER PROTOCOL. W/ OPEN WD. ON RIGHT DORSAL FOOT. INTACT W/ BETADINE AND MEPILEX. LEONARD. HEELS KEPT ELEVATED AT ALL TIMES. Addendum: 09/14/19 at 2340 by SARAH BETTENOCURT RN RN/ICU-SPECIAL DROPLET PRECAUTION
--- NOTE | 2019-09-14 14:40 | NUR ---
REPORT GIVEN TO RICHARD SMITH, FOR KEVIN.
[2019-09-14] MEDS: MEROPENEM 500 MG in IV NS 0.9% 50 ML IV SCH (15:22)
--- NOTE | 2019-09-14 18:00 | NUR ---
RN/ICU-SPOKE TO BROTHAMARJIT LOCKE BY PHONE REGARDING HIS DESIRE TO TALK TO PT. PT. UNABLE TO AT THIS TIME. EXPLAINED TO SAME THE REASON AND VERBALIZED UNDERSTANDING.
--- NOTE | 2019-09-14 19:00 | NUR ---
RN/ICU- PT. STATUS UNCHANGED. SLEEPING, NO S/S OF PAIN OR DISTRESS.
--- NOTE | 2019-09-14 19:00 | NUR ---
RECEIVED PATIENT IN NO ACUTE DISTRESS IN BED. PATIENT IS A/O X 3 AND ABLE TO MAKE NEEDS KNOWN, BUT HAS SLIGHT LANGUAGE BARRIER. PATIENT IS TAMAZIGHT SPEAKING WITH ABILITY TO UNDERSTAND A LITTLE ALBANIAN. PATIENT IS ON HIGH FLOW O2 AT 60LPM WITH 95% FIO2, WELL , NON REBREATHER AT 15LPM AND TOLERATING WELL WITH O2 SAT @ 96%. PATIENT HAS LEFT UPPER ARM MIDLINE THAT IS CLEAN DRY INTACT AND PATENT WITH DANNIELLE @ 0.09 AND NS @ TKO. BED IN LOW LOCK POSITION WITH RIALS UP X 2. CALL LIGHT WITHIN REACH AND ALL SAFETY MEASURES ENSURED AND CARRIED OUT. WILL CONTINUE TO MONITOR.
--- NOTE | 2019-09-14 20:00 | NUR ---
TRIED REPOSITIONED PATIENT, BUT PATIENT IS ABLE TO REPOSITION HIMSELF INDEPENDENTLY. WILL CONTINUE TO REMIND PATIENT TO REPOSITION TO PREVENT PRESSURE SORES.
[2019-09-14] MEDS: ACETAMINOPHEN 325 MG TABLET PO PRN (23:16)
[2019-09-15] VITALS (67 sets, daily range): BP systolic 62–174; BP diastolic 28–106
[2019-09-15 04:51] LABS: BASOPHILS # (AUTO) 0.2 /CMM (0.0-0.2); BASOPHILS % (AUTO) 0.6 % (0.0-2.0); HEMATOCRIT 30 % (39-51); HEMOGLOBIN 9.8 g/dL (13.5-17.5); LYMPHOCYTES # (AUTO) 1.5 /CMM (0.8-4.8); LYMPHOCYTES % (AUTO) 5.2 % (20.0-44.0); MEAN CORPUSCULAR HGB CONC 32 g/dl (31.0-36.0); MEAN CORPUSCULAR VOLUME 89 fL (80-96); MONOCYTES # (AUTO) 1.5 /CMM (0.1-1.30); MONOCYTES % (AUTO) 5.2 % (2.0-12.0); NEUTROPHILS # (AUTO) 26.1 /CMM (1.8-8.9); PLATELET COUNT (AUTO) 207 /CMM (150-450); RED BLOOD CELL COUNT(AUTO) 3.43 MIL/uL (4.5-6.0); WHITE BLOOD COUNT (AUTO) 29.7 K/uL (4.3-11.0)
[2019-09-15 05:02] LABS: CALCIUM, SERUM 8.2 mg/dL (8.5-10.1)
[2019-09-15 05:04] LABS: CREATININE 8.7 mg/dL (0.6-1.3)
[2019-09-15 05:09] LABS: B-TYPE NATRIURETIC PEPTIDE 13174 PG/ML (0-125)
[2019-09-15 05:43] LABS: FERRITIN 2612 ng/mL (8-388)
--- NOTE | 2019-09-15 06:53 | NUR ---
PATIENT REMAINS IN NO ACUTE DISTRESS IN BED. PATIENT TOLERATED HIGH FLOW AND NON REBREATHER MASK WELL. PATIENT DID NOT HAVE ANY SIGNIFICANT CHANGE IN CONDITION DURING SHIFT. PATIENT IS CURRENTLY GETTING HD.
[2019-09-15 08:25] LABS: BILIRUBIN,DIRECT 1.4 mg/dL (0.0-0.2)
[2019-09-15] MEDS: SEVELAMER CARBONATE 800 MG TABLET PO SCH ×2 (08:35→13:26)
[2019-09-15] MEDS: CALCITRIOL 0.25 MCG CAPSULE PO SCH (08:35)
[2019-09-15] MEDS: LIPASE/PROTEASE/AMYLASE 1 EACH CAPSULE.DR PO SCH ×2 (08:35→13:26)
[2019-09-15] MEDS: Z GUARD REMEDY 2 OZ OINT TP SCH (08:36)
[2019-09-15] MEDS: HEPARIN SODIUM, PORCINE 5000 UNITS/1 ML VIAL SQ SCH (08:46)
--- NOTE | 2019-09-15 09:36 | NUR ---
received pt from mold shifter, alert, follows commands, SR, ST, on high flow and NRB, sat well, tolerates diet, having HD now, diaper on, on levo at 0.1 mcg, v/s stable, no pain, seen by Dr Hummel, pt turned and repositioned.
[2019-09-15 11:00] LABS: ABG BASE EXCESS -4.4 mmol/L; ABG OXYGEN SATURATION 75.4 % (92.0-98.5); ABG PCO2 34.7 mmHg (35.0-45.0); ABG PO2 44.5 mmHg (75.0-100.0); AaDO2 633.8 mmHg; COHb 1.1 % (0.5-1.5); MetHb 0.1 % (0.0-1.5); O2Hb 74.5 % (94.0-97.0); SITE, ABG Right Radial; VENT MODE, BG HFNC 60 LPM 100%
--- NOTE | 2019-09-15 11:30 | NUR ---
ABGs are abnormal, Dr Hummel notified, order to intubate received and carried out. pt is successfully intubated.
[2019-09-15] MEDS: PROPOFOL 100 ML IV PRN ×2 (13:25→15:53)
[2019-09-15] MEDS: MEROPENEM 500 MG in IV NS 0.9% 50 ML IV SCH (13:27)
[2019-09-15 14:32] LABS: ABG BASE EXCESS -13.9 mmol/L; ABG OXYGEN SATURATION 90.4 % (92.0-98.5); ABG PH 7.201 (7.350-7.450); ABG PO2 74.8 mmHg (75.0-100.0); AaDO2 604.2 mmHg; COHb 0.1 % (0.5-1.5); MetHb 0.3 % (0.0-1.5); SITE, ABG Right Radial; VENT MODE, BG AC 22 500 +10 100%
[2019-09-15] MEDS ORDERED: LORAZEPAM INJ 2 MG/ML VIAL IV PRN (16:00)
[2019-09-15] MEDS ORDERED: PHENYLEPHRINE 100 MG in IV NS 0.9% 240 ML IV PRN (16:30)
[2019-09-15] MEDS ORDERED: DOSE PER PHARMACY MICAFUNGIN 1 EA XX PRN (17:00)
--- NOTE | 2019-09-15 17:00 | NUR ---
HR 32, no BP, then asystole, code called, CPR started, epi given, ER MD at the bedside, ACLS followed.
--- NOTE | 2019-09-15 17:14 | NUR ---
unsuccessful resuscitation, ER MD pronounced pt's . Primary MD and family notified.
[2019-09-15] MEDS ORDERED: AMIODARONE 150 MG/3 ML VIAL IV ONE (17:38)
[2019-09-15] MEDS ORDERED: EPINEPHRINE (1:10,000) SYRINGE 1 MG/10 ML DISP.SYRIN IVP ONE ×2 (17:38→23:59)
[2019-09-15] MEDS ORDERED: MICAFUNGIN SODIUM 100 MG in IV NS 0.9% 100 ML IV SCH (18:00)
--- NOTE | 2019-09-15 18:33 | NUR ---
ICU/RN BODY TRANSFERRED TO [facility].FAMILY BROTHER CHUCKY PARISI [phone],HAS NO MORTUARY ARRANGEMENT AT THIS TIME .MEDICINE AIDE KANDY NOTIFIED.
[2019-09-15] MEDS ORDERED: SODIUM BICARBONATE SYR 50 MEQ/50 ML DISP.SYRIN IV ONE (23:59)
== END 2019-09-16 | disposition expired | DRG 137 ==
LOC: ER 12:03 → TELE1 15:35 → TELE-TD 09-10 18:19 → ICU 09-11 11:28
PROVIDERS: ADMIT Student in an Organized Health Care Education/Training Program; ATTEND Student in an Organized Health Care Education/Training Program
PROC: 5A1D70Z Performance of Urinary Filtration, Intermittent, Less than 6 Hours Per Day (ICD-10-PCS; principal; 2019-08-30)
PROC: 05HY33Z Insertion of Infusion Device into Upper Vein, Percutaneous Approach (ICD-10-PCS; 2019-09-01)
PROC: 30233K1 Transfusion of Nonautologous Frozen Plasma into Peripheral Vein, Percutaneous Approach (ICD-10-PCS; 2019-09-13)
PROC: 5A2204Z Restoration of Cardiac Rhythm, Single (ICD-10-PCS; 2019-09-15)
PROC: 02HV33Z Insertion of Infusion Device into Superior Vena Cava, Percutaneous Approach (ICD-10-PCS; 2019-09-15)
PROC: B548ZZA Ultrasonography of Superior Vena Cava, Guidance (ICD-10-PCS; 2019-09-15)
PROC: 5A1935Z Respiratory Ventilation, Less than 24 Consecutive Hours (ICD-10-PCS; 2019-09-15)
PROC: 0BH17EZ Insertion of Endotracheal Airway into Trachea, Via Natural or Artificial Opening (ICD-10-PCS; 2019-09-15)
DX: U07.1 COVID-19 (principal); J96.01 Acute respiratory failure with hypoxia; E43 Unspecified severe protein-calorie malnutrition; D69.6 Thrombocytopenia, unspecified; J12.89 Other viral pneumonia; I12.0 Hypertensive chronic kidney disease with stage 5 chronic kidney disease or end stage renal disease; E11.22 Type 2 diabetes mellitus with diabetic chronic kidney disease; E11.621 Type 2 diabetes mellitus with foot ulcer; I48.91 Unspecified atrial fibrillation; N18.6 End stage renal disease; R19.7 Diarrhea, unspecified; Z99.2 Dependence on renal dialysis; E87.1 Hypo-osmolality and hyponatremia; Z79.899 Other long term (current) drug therapy; Z87.891 Personal history of nicotine dependence; Z59.0 Homelessness; Z86.19 Personal history of other infectious and parasitic diseases; D63.1 Anemia in chronic kidney disease; E78.5 Hyperlipidemia, unspecified; Y95 Nosocomial condition; K74.60 Unspecified cirrhosis of liver; I95.3 Hypotension of hemodialysis; L97.519 Non-pressure chronic ulcer of other part of right foot with unspecified severity; N40.0 Benign prostatic hyperplasia without lower urinary tract symptoms; I70.0 Atherosclerosis of aorta; K80.20 Calculus of gallbladder without cholecystitis without obstruction; K86.89 Other specified diseases of pancreas
CPT/HCPCS: 36410; 36415; 36569; 36600; 71045-TC; 76705-TC; 80048-TC; 80053-TC; 80061-TC; 80076-TC; 80202-TC; 82150-TC; 82247-TC; 82248-TC; 82728-TC; 82803-TC; 83540-TC; 83605-TC; 83615-TC; 83690-TC; 83735-TC; 83880; 84100-TC; 84484-TC; 85025-TC; 85378-TC; 85730-TC; 86140-TC; 86480; 86706; 86803; 86850-TC; 87040-TC; 87070-TC; 87081-TC; 87340; 87806; 87899; 90935-TC; 94002-TC; 94760-TC; 94762-TC; 97116-TC; 97530-TC; 99082-TC; C1751; G0378; J0171; J0282; J0456; J1200; J1644; J2185; J2248; J2370; J2543; J2930; J3262; J3370; J3490; J7030; J7050; J7060; P9017-BL; P9047